=== PATIENT | female | born 1935 | race Caucasian/White ===

== ENCOUNTER → 2020-06-21 15:21 | Outpatient (BNVA) | payer MEDICARE, SELFPAY | PROVIDERS: PCP Internal Medicine; Referring Provider Internal Medicine; Visit Provider Internal Medicine | DX: Z86.73 Personal history of transient ischemic attack (TIA), and cerebral infarction without residual deficits (principal); Z51.81 Encounter for therapeutic drug level monitoring; Z79.01 Long term (current) use of anticoagulants | CPT/HCPCS: 85610; 99211 ==

== ENCOUNTER 2020-06-21 15:26 | Outpatient (REF) | payer MEDICARE, SELFPAY | END 2020-06-21 15:27 | disposition home or self-care (01) | LOC: HO.LNP 15:26 | PROVIDERS: Visit Provider Internal Medicine | DX: Z79.01 Long term (current) use of anticoagulants (principal); Z79.899 Other long term (current) drug therapy ==

== ENCOUNTER → 2020-06-29 10:02 | Outpatient (BNVA) | payer MEDICARE, SELFPAY | PROVIDERS: PCP Internal Medicine; Visit Provider Internal Medicine | DX: I63.9 Cerebral infarction, unspecified (principal); Z51.81 Encounter for therapeutic drug level monitoring; Z79.01 Long term (current) use of anticoagulants | CPT/HCPCS: 85610 ==

== ENCOUNTER → 2020-07-20 08:30 | Outpatient (BNVA) | payer MEDICARE, SELFPAY | PROVIDERS: PCP Internal Medicine; Referring Provider Internal Medicine; Visit Provider Internal Medicine | DX: I63.9 Cerebral infarction, unspecified (principal); Z51.81 Encounter for therapeutic drug level monitoring; Z79.01 Long term (current) use of anticoagulants | CPT/HCPCS: 85610; 99211 ==

== ENCOUNTER → 2020-08-20 08:48 | Outpatient (BNVA) | payer MEDICARE, SELFPAY | PROVIDERS: PCP Internal Medicine; Visit Provider Internal Medicine | DX: Z86.73 Personal history of transient ischemic attack (TIA), and cerebral infarction without residual deficits (principal); Z51.81 Encounter for therapeutic drug level monitoring; Z79.01 Long term (current) use of anticoagulants | CPT/HCPCS: 85610; 99211 ==

== ENCOUNTER 2020-09-03 09:36 | Outpatient (REF) | payer MEDICARE, SELFPAY ==
--- NOTE | 2020-09-03 | US_ITS ---
EXAMINATION: US EXTRACRANIAL CAROTID DUPLEX, BILATERAL CLINICAL INFORMATION: Carotid stenosis. Follow-up stroke. COMPARISON: None. TECHNIQUE: Real-time ultrasound and Doppler techniques (integrating B-mode 2-D vascular images, Doppler spectral analysis and color-flow Doppler imaging) were utilized to interrogate the extracranial carotid arteries, the vertebral arteries and proximal subclavian arteries bilaterally. The degree of stenosis is determined by criteria similar to NASCET. FINDINGS: Right Side: 1. There is soft atherosclerotic plaque seen in the bifurcation/proximal ICA region. 2. The common carotid artery PSV proximally is 92.6 cm/s and distally 71.1 cm/s. 3. The proximal internal carotid artery velocities are 68.0 cm/s systolic and 18.8 cm/s diastolic. 4. The proximal external carotid artery PSV is 99.7 cm/s. 5. The vertebral artery shows antegrade flow. 6. The subclavian artery waveforms are normal. Left Side: 1. There is hard shadowing atherosclerotic plaque seen in the bifurcation/proximal ICA region. 2. The common carotid artery PSV proximally is 76.2 cm/s and distally 59.3 cm/s. 3. The proximal internal carotid artery velocities are 284 cm/s systolic and 77.0 cm/s diastolic. 4. The proximal external carotid artery PSV is 85.0 cm/s. 5. The vertebral artery shows antegrade flow. 6. The subclavian artery waveforms are normal. US/US carotid duplex BI IMPRESSION: 1. RIGHT: No hemodynamically significant stenosis. There is minimal soft plaque seen in the right carotid bulb. 2. LEFT: 50-79% range stenosis left internal carotid artery. Hard atherosclerotic plaque seen in the left common carotid bulb and proximal ICA. 3. Normal antegrade flow seen in both vertebral arteries.
== END 2020-09-03 09:37 | disposition home or self-care (01) ==
LOC: HO.US 09:36
PROVIDERS: PCP Internal Medicine; Visit Provider Internal Medicine
DX: I65.22 Occlusion and stenosis of left carotid artery (principal); I65.29 Occlusion and stenosis of unspecified carotid artery; I63.9 Cerebral infarction, unspecified
CPT/HCPCS: 85610; 93880; 99211

== ENCOUNTER → 2020-10-01 08:18 | Outpatient (BNVA) | payer MEDICARE, SELFPAY | PROVIDERS: PCP Internal Medicine; Visit Provider Internal Medicine | DX: Z86.73 Personal history of transient ischemic attack (TIA), and cerebral infarction without residual deficits (principal); Z79.01 Long term (current) use of anticoagulants; Z51.81 Encounter for therapeutic drug level monitoring | CPT/HCPCS: 85610; 99211 ==

== ENCOUNTER → 2020-10-29 08:22 | Outpatient (BNVA) | payer MEDICARE, SELFPAY | PROVIDERS: PCP Internal Medicine; Visit Provider Internal Medicine | DX: I63.9 Cerebral infarction, unspecified (principal); Z51.81 Encounter for therapeutic drug level monitoring; Z79.01 Long term (current) use of anticoagulants | CPT/HCPCS: 85610; 99211 ==

== ENCOUNTER 2020-11-05 18:58 | Emergency (ER) | payer MEDICARE, SELFPAY ==
--- NOTE | ~2020-11-05 | XR_ITS ---
EXAMINATION: XR SHOULDER, RIGHT CLINICAL INFORMATION: Shoulder pain with impaired movement. COMPARISON: Left shoulder 10/18/2018, right shoulder 10/30/2006. TECHNIQUE: Three views of the right shoulder. FINDINGS: Again seen are degenerative changes present in the glenohumeral joint along with the AC joint. Changes have progressed slightly since the prior study in 2006. New calcifications seen in the region of the rotator cuff (most likely supraspinatus tendon) which could represent tendinosis/tendinitis which was not present previously. XR/XR shoulder RT min 2V IMPRESSION: Degenerative changes, glenohumeral and AC joint, with new calcifications in the rotator cuff as described above.
[2020-11-05 19:07] VITALS: BP 165/87; PULSE 87; RESP 18; TEMP 36.8; O2SAT 96; BMI 35.2
--- NOTE | 2020-11-05 20:30 | ED_ITS ---
HPI - Extremity Problem General Chief complaint: Extremity Problem Stated complaint: Right arm pain Source: patient Mode of arrival: ambulatory Limitations: no limitations History of Present Illness HPI Narrative: 85-year-old female with past medical history of hypertension, hyperlipidemia, history of CVA on Coumadin, sleep apnea, and ambulates with a cane presents with right shoulder pain. States that she has been doing a lot of work moving various objects in her basement over the past week. Is having a difficult time raising her arm above 45 degree angle. She does not describe any pain when her arm is at rest. She does not report any loss of strength in her hand, does not report any traumatic injury or falls. She denies dizziness, lightheadedness, changes in vision, chest pain or pressure, palpitations, shortness of breath, abdominal pain, abdominal distention, dysuria, hematuria, fevers and chills. MD Complaint: extremity pain Onset (ago): day(s) (3) Pain Consistency: constant Location: right and upper extremity Severity scale (1-10): 8 Quality: aching Radiation: none Relieving factors: immobilization Exacerbating factors: range of motion and palpation Associated symptoms: denies other symptoms Related Data Home Medications Medication Instructions Recorded Confirmed atenolol 25 mg tablet 25 mg PO DAILY 10/29/20 10/29/20 atorvastatin 10 mg tablet 10 mg PO DAILY 10/29/20 10/29/20 lisinopril 5 mg tablet 5 mg PO DAILY 10/29/20 10/29/20 Previous Rx's Medication Instructions Recorded warfarin 2.5 mg tablet 2.5 mg PO DAILY #90 tab 06/22/20 diclofenac sodium [Voltaren] 2 g TOPICAL QID #100 g 11/05/20 Allergies Allergy/AdvReac Type Severity Reaction Status Date / Time No Known Allergies Allergy Verified 09/03/20 09:18 [No Known Allergies*] Review of Systems Review of Systems: Constitutional: No Fever, No Chills ENT/Mouth: No Ear Pain, No Hoarseness, No sore throat Eyes: No Eye Pain, No Swelling, No Redness, No Foreign Body Cardiovascular: No Chest Pain, No SOB Respiratory: No Cough, No Dyspnea Gastrointestinal: No Nausea, No Vomiting, No Diarrhea, No abdominal Pain Genitourinary: No Dysuria, No Hematuria Musculoskeletal: positive right shoulder pain, No Myalgias, No Joint Swelling Skin: No Skin lacerations, No rash Neuro: No Weakness, No Numbness, No Paresthesias, No Loss of Consciousness, No Dizziness, No Headache Psych: No Anxiety/Panic, No Depression Heme/Lymph: no easy bruising, no Lymphadenopathy Endocrine: No Polyuria, No Polydipsia Yes all other systems are reviewed and are negative [facility] Past Medical History Attestation statement: The following information was validated with the patient. Source: old records reviewed Medical History Cataract HLD (hyperlipidemia) HTN (hypertension) Sleep apnea TIA (transient ischemic attack) Surgical History Hx of appendectomy Social History Social History Smoking Status: Never smoker Use of substances other than those prescribed or required for medical reasons: No Advance Directives: No Advance Directives Information Provided: Yes Physical Exam Vital Signs: Vital Signs: Last Vital Signs Temp 98.3 F 11/05/20 19:07 Pulse 72 11/05/20 20:52 Resp 16 11/05/20 20:52 BP 147/74 H 11/05/20 20:52 Pulse Ox 96 11/05/20 20:52 Body Mass Index 35.2 Appearance: Alert. Oriented X3. No acute distress. Eyes: Pupils equal, round and reactive to light. ENT: Pharynx normal. Neck: Normal inspection. Neck supple. CVS: Normal heart rate and rhythm. Pulses normal. Respiratory: No respiratory distress. Breath sounds normal. Abdomen: Soft and nontender. Skin: Skin warm and dry. Normal skin color. Normal skin turgor. Extremities: Decreased range of motion to the right upper extremity, strength 5/5 to all extremities. Brisk capillary refill, equal pulses. Neuro: No motor deficit. No sensory deficit. Gait well balanced well coordinated with cane use. Cranial nerves 2-12 intact. Course Course Course Narrative: 85-year-old female with past medical history of CVA on Coumad in, hypertension, hyperlipidemia, sleep apnea, ambulates with a cane presents with right shoulder pain for 3 days. X-ray shows Degenerative changes, glenohumeral and AC joint, with new calcifications in the rotator cuff. [place] text discussion with Dr. Alcocer, plan of care is for patient to follow-up with PA as an outpatient in the office. Will give Lidoderm patches and Voltaren gel for pain management. Patient verbalized understanding of and agrees to plan of care to discharge home. Consultations Consultation #1: Carlyn Time: 21:13 MDM - Extremity (Nontraumatic) MDM Narrative Medical decision making narrative: Arthritis, rotator cuff injury, labrum tear, muscular strain Medical Records Attestation: I reviewed the patient's medical records. Imaging Data Shoulder x-ray: Attestation: I personally reviewed and interpreted this imaging study as follows: Radiologist's impression: EXAMINATION: XR SHOULDER, RIGHT CLINICAL INFORMATION: Shoulder pain with impaired movement. COMPARISON: Left shoulder 10/18/2018, right shoulder 10/30/2006. TECHNIQUE: Three views of the right shoulder. FINDINGS: Again seen are degenerative changes present in the glenohumeral joint along with the AC joint. Changes have progressed slightly since the prior study in 2006. New calcifications seen in the region of the rotator cuff (most likely supraspinatus tendon) which could represent tendinosis/tendinitis which was not present previously. XR/XR shoulder RT min 2V IMPRESSION: Degenerative changes, glenohumeral and AC joint, with new calcifications in the rotator cuff as described above. Discharge Plan Discharge Clinical Impression: Arthritis of shoulder region, right, degenerative Patient Disposition: Home, Self-Care Instructions: Shoulder Pain (ED), Arthritis (ED) Additional Instructions: You were evaluated for right shoulder pain. Please use Voltaren topical ointment as needed. Follow-up with orthopedics, please call and request an appointment. Use sling as needed for comfort. Thank you for choosing this emergency department for evaluation. Please follow-up with primary care physician as needed. Return to the emergency department for any new, concerning, or worsening symptoms. Prescriptions: New diclofenac sodium [Voltaren] 1 % gel 2 g topical QID Qty: 100 RF: 0 No Action warfarin 2.5 mg tablet 2.5 mg PO DAILY Qty: 90 RF: 0 atorvastatin 10 mg tablet 10 mg PO DAILY RF: 0 lisinopril 5 mg tablet 5 mg PO DAILY RF: 0 atenolol 25 mg tablet 25 mg PO DAILY RF: 0 Referrals: Rubia Interiano PA-C [Physician [facility]] - 2 days (right shoulder degeneration ) Gregory Villasenor PA-C [Physician [facility]] - 2 days (Right shoulder degeneration) Interventions: ED Discharge Assessment Last Done: 11/05/20 21:55 Discharge Date/Time: 11/05/20 21:56
[2020-11-05 20:52] VITALS: BP 147/74; PULSE 72; RESP 16; O2SAT 96
[2020-11-05] MEDS: Lidocaine 4 % Patch ADH..PATCH 2 PATCH TRANSDERMA (21:44)
== END 2020-11-05 21:56 | disposition home or self-care (01) ==
PROVIDERS: Emergency Provider Internal Medicine; PCP Internal Medicine
DX: M19.011 Primary osteoarthritis, right shoulder (principal); I10 Essential (primary) hypertension; Z86.73 Personal history of transient ischemic attack (TIA), and cerebral infarction without residual deficits
CPT/HCPCS: 73030; 99283; 99284

== ENCOUNTER → 2020-11-07 08:51 | Outpatient (BNVA) | payer MEDICARE, SELFPAY | PROVIDERS: PCP Internal Medicine; Visit Provider Orthopaedic Surgery | DX: M75.41 Impingement syndrome of right shoulder (principal) | CPT/HCPCS: 99202 ==

== ENCOUNTER → 2020-11-26 08:31 | Outpatient (BNVA) | payer MEDICARE, SELFPAY | PROVIDERS: PCP Internal Medicine; Visit Provider Internal Medicine | DX: I63.9 Cerebral infarction, unspecified (principal); Z51.81 Encounter for therapeutic drug level monitoring; Z79.01 Long term (current) use of anticoagulants | CPT/HCPCS: 85610; 99211 ==

== ENCOUNTER → 2020-12-24 08:33 | Outpatient (BNVA) | payer MEDICARE, SELFPAY | PROVIDERS: PCP Internal Medicine; Visit Provider Internal Medicine | DX: I63.9 Cerebral infarction, unspecified (principal); Z79.01 Long term (current) use of anticoagulants; Z51.81 Encounter for therapeutic drug level monitoring | CPT/HCPCS: 85610; 99211 ==

== ENCOUNTER → 2021-01-21 08:33 | Outpatient (BNVA) | payer MEDICARE, SELFPAY | PROVIDERS: PCP Internal Medicine; Visit Provider Internal Medicine | DX: Z86.73 Personal history of transient ischemic attack (TIA), and cerebral infarction without residual deficits (principal); Z51.81 Encounter for therapeutic drug level monitoring; Z79.01 Long term (current) use of anticoagulants | CPT/HCPCS: 85610; 99211 ==

== ENCOUNTER → 2021-02-25 08:28 | Outpatient (BNVA) | payer MEDICARE, SELFPAY | PROVIDERS: PCP Internal Medicine; Visit Provider Internal Medicine | DX: Z86.73 Personal history of transient ischemic attack (TIA), and cerebral infarction without residual deficits (principal); Z51.81 Encounter for therapeutic drug level monitoring; Z79.01 Long term (current) use of anticoagulants | CPT/HCPCS: 85610; 99211 ==

== ENCOUNTER → 2021-03-08 08:28 | Outpatient (BNVA) | payer MEDICARE, SELFPAY | PROVIDERS: PCP Internal Medicine; Visit Provider Internal Medicine | DX: Z86.73 Personal history of transient ischemic attack (TIA), and cerebral infarction without residual deficits (principal); Z51.81 Encounter for therapeutic drug level monitoring; Z79.01 Long term (current) use of anticoagulants | CPT/HCPCS: 85610; 99211 ==

== ENCOUNTER → 2021-03-27 08:23 | Outpatient (BNVA) | payer MEDICARE, SELFPAY | PROVIDERS: PCP Internal Medicine; Visit Provider Internal Medicine | DX: Z86.73 Personal history of transient ischemic attack (TIA), and cerebral infarction without residual deficits (principal); Z51.81 Encounter for therapeutic drug level monitoring; Z79.01 Long term (current) use of anticoagulants | CPT/HCPCS: 85610; 99211 ==

== ENCOUNTER → 2021-04-24 08:30 | Outpatient (BNVA) | payer MEDICARE, SELFPAY | PROVIDERS: PCP Internal Medicine; Visit Provider Internal Medicine | DX: Z86.73 Personal history of transient ischemic attack (TIA), and cerebral infarction without residual deficits (principal); Z51.81 Encounter for therapeutic drug level monitoring; Z79.01 Long term (current) use of anticoagulants | CPT/HCPCS: 85610; 99211 ==

== ENCOUNTER → 2021-05-22 08:11 | Outpatient (BNVA) | payer MEDICARE, SELFPAY | PROVIDERS: PCP Internal Medicine; Visit Provider Internal Medicine | DX: Z86.73 Personal history of transient ischemic attack (TIA), and cerebral infarction without residual deficits (principal); Z51.81 Encounter for therapeutic drug level monitoring; Z79.01 Long term (current) use of anticoagulants | CPT/HCPCS: 85610; 99211 ==

== ENCOUNTER → 2021-06-12 08:19 | Outpatient (BNVA) | payer MEDICARE, SELFPAY | PROVIDERS: PCP Internal Medicine; Visit Provider Internal Medicine | DX: Z86.73 Personal history of transient ischemic attack (TIA), and cerebral infarction without residual deficits (principal); Z51.81 Encounter for therapeutic drug level monitoring; Z79.01 Long term (current) use of anticoagulants | CPT/HCPCS: 85610; 99211 ==

== ENCOUNTER 2021-07-17 07:26 | Outpatient (REF) | payer MEDICARE, SELFPAY ==
--- NOTE | ~2021-07-17 | MR_ITS ---
EXAMINATION: MR BRAIN WITHOUT CONTRAST CLINICAL INFORMATION: Cerebral vascular accident. Follow-up stroke. COMPARISON: Head CT October 27, 2018. Head MRA May 26, 2017. TECHNIQUE: Multiplanar, multisequence imaging of the brain was performed without intravenous contrast. FINDINGS: There is no acute infarction, hemorrhage, mass, or extra-axial fluid collection. Mild to moderate patchy foci of T2/FLAIR hyperintensity are seen within the cerebral white matter, typical of chronic microangiopathy. The ventricles and sulci are commensurate. No hydrocephalus is seen. Chronic lacunar infarcts are seen within the bilateral cerebellar hemispheres and in the left thalamus. The major arterial flow voids are preserved at the skull base. A calcified aneurysm projecting superiorly from the distal right M1 MCA segment is again seen. There are bilateral lens replacements. Mild scattered paranasal sinus mucosal thickening is noted in addition to bilateral mastoid effusions. MR/MR head/brain wo con IMPRESSION: No acute infarct, mass lesion, intracranial hemorrhage, or evidence of hydrocephalus. Chronic lacunar infarcts in the bilateral cerebellar hemispheres and left thalamus in a background of chronic microangiopathy. 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 Neuro interventional consultation is recommended if not already performed.
== END 2021-07-17 07:27 | disposition home or self-care (01) ==
LOC: HO.MRI 07:26
PROVIDERS: PCP Internal Medicine; Visit Provider Internal Medicine
DX: Z86.73 Personal history of transient ischemic attack (TIA), and cerebral infarction without residual deficits (principal); Z51.81 Encounter for therapeutic drug level monitoring; Z79.01 Long term (current) use of anticoagulants
CPT/HCPCS: 70551; 85610; 99211

== ENCOUNTER → 2021-08-01 07:36 | Outpatient (REF) | payer MEDICARE, SELFPAY ==
--- NOTE | ~2021-08-01 | US_ITS ---
EXAMINATION: US EXTRACRANIAL CAROTID DUPLEX, BILATERAL CLINICAL INFORMATION: History of stroke. COMPARISON: 09/03/2020 and 08/31/2019. TECHNIQUE: Real-time ultrasound and Doppler techniques (integrating B-mode 2-D vascular images, Doppler spectral analysis and color-flow Doppler imaging) were utilized to interrogate the extracranial carotid arteries, the vertebral arteries and proximal subclavian arteries bilaterally. The degree of stenosis is determined by criteria similar to NASCET. FINDINGS: Right Side: 1. There is mild atherosclerotic plaque seen in the bifurcation/proximal ICA region. 2. The common carotid artery PSV proximally is 63.3 cm/s and distally 51.9 cm/s. 3. The proximal internal carotid artery velocities are 67.6 cm/s systolic and 16.5 cm/s diastolic. 4. The proximal external carotid artery PSV is 76.8 cm/s. 5. The vertebral artery shows antegrade flow. 6. The subclavian artery waveforms are normal. Left Side: 1. There is mild to moderate atherosclerotic plaque seen in the bifurcation/proximal ICA region. 2. The common carotid artery PSV proximally is 70.3 cm/s and distally 62.9 cm/s. 3. The proximal internal carotid artery velocities are 233 cm/s systolic and 48.5 cm/s diastolic. 4. The proximal external carotid artery PSV is 69.1 cm/s. 5. The vertebral artery shows antegrade flow. 6. The subclavian artery waveforms are normal. US/US carotid duplex BI IMPRESSION: 1. RIGHT: Minimal, non-hemodynamically significant stenosis of the proximal right internal carotid artery corresponding to a 0-49% stenosis by velocity criteria. 2. LEFT: Moderate, hemodynamically significant stenosis of the proximal left internal carotid artery corresponding to a 50-79% stenosis by velocity criteria. 3. There is no change in the category severity of disease when compared to the previous study dated 09/03/2020.
--- NOTE | 2021-08-01 07:39 | CA_ITS ---
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 The visually estimated ejection fraction is >70%. - There is mild aortic valve stenosis. - There is moderate mitral annular calcification. Findings Left Ventricle Normal left ventricular cavity size. There is mildly increased left ventricular wall thickness. The left ventricular systolic function is hyperdynamic. The visually estimated ejection fraction is >70%. E/E prime ratio is >15, consistent with elevated filling pressures. Evidence suggests grade I (mild) diastolic dysfunction. Right Ventricle Normal right ventricular cavity size and systolic function. Atria The left atrium is moderately dilated. The right atrium is mildly dilated. Aortic Valve There is moderate calcification of the aortic valve. There is mild aortic valve stenosis. The peak aortic velocity is 1.77 m/s with a calculated peak gradient of 13 mmHg. The mean gradient is 11 mmHg. The aortic valve area is 1.60 cm2. There is mild aortic valve regurgitation. Mitral Valve There is moderate mitral annular calcification. There is trace mitral valve regurgitation. There is no mitral valve stenosis. Pulmonic Valve The pulmonic valve was not well visualized. Tricuspid Valve There is mild tricuspid valve regurgitation. The pulmonary artery systolic pressure is normal. Great Vessels The aortic annulus and asc aorta are normal in size. Venous The inferior vena cava is normal in size and collapses greater than 50% with inspiration. Pericardium/Pleural There is no evidence of pericardial effusion. Prior Study Comparison No significant change compared to prior study dated: 10/07/2019. Measurements 2D Linear Measurements IVSd: 1.20 0.6-0.9/0.6-1.0 cm LVIDd: 4.67 3.9-5.3/4.2-5.9 cm LVIDd Index: 2.51 2.4-3.2/2.2-3.1 cm/m2 LVIDs: 2.28 2.0-3.6 cm LVPWd: 1.10 0.7-1.1 cm Ao Root: 3.00 2.1-3.5 cm LA Diam: 3.90 2.7-3.8/3.0-4.0 cm LAIDs Index: 2.10 1.5-2.3 cm/m2 LV Mass: 246.23 67-162/88-224 g LV Mass Index: 132.38 43-95/49-115 g/m2 LVOT Diam: 2.10 3.0+(-)1.3 cm 2D Systolic Function EF 4C: 76.50 >55% EF 2C: 83.50 >55% EF BiP: 80.00 >55% Mitral Valve MV Pk E: 1.11 MV PK A: 1.63 MV Decel Time: 180.00 E/A: 0.70 E'Lateral: 6.53 E'Medial: 5.22 E/E' Med: 21.30 E/E' Lat: 17.00 PHT: 53.00 MVA PHT: 4.15 Decel Overton: 6.17 Aortic Valve AoV Pk Yaron: 1.77 AoV Mn Yaron: 1.57 AoV VTI: 0.62 AoV Pk Grad: 13.00 Aov Mn Grad: 11.00 KATIE Cont.VTI: 1.60 LVOT LVOT Pk Yaron: 1.06 LVOT Mn Yaron: 0.77 LVOT VTI: 0.29 LVOT Pk Grad: 4.00 LVOT Mn Grad: 3.00 LVOT Diam: 2.10 LVOT Area: 3.46 Diastolic Function MV Pk E: 1.11 MV Pk A: 1.63 E/A: 0.70 E'Medial: 5.22 E/E' Med: 21.30 E' Laterial: 6.53 E/E' Lat: 17.00 Right Ventricle TAPSE (mm): 2.09 Tricuspid Valve TR Pk Yaron: 2.55 TR Pk Grad: 26.00 RA Press: 3.00 RVSP: 29.00 Great Vessels Aorta Ao Root-2D: 3.00 2.0-3.7 cm Ao Asc: 3.80 2.1-3.4 cm Updated in Other Vendor System with Status of Final Geoffrey Rene MD electronically signed on 08/03/2021 12:42:03 PM with status of Final
== END ==
LOC: HO.CARD 07:36
PROVIDERS: Visit Provider Internal Medicine
DX: I63.9 Cerebral infarction, unspecified (principal); I65.22 Occlusion and stenosis of left carotid artery; R01.1 Cardiac murmur, unspecified; I10 Essential (primary) hypertension
CPT/HCPCS: 93306; 93880

== ENCOUNTER → 2021-08-14 09:09 | Outpatient (BNVA) | payer MEDICARE, SELFPAY | PROVIDERS: PCP Internal Medicine; Visit Provider Internal Medicine | DX: Z86.73 Personal history of transient ischemic attack (TIA), and cerebral infarction without residual deficits (principal); Z51.81 Encounter for therapeutic drug level monitoring; Z79.01 Long term (current) use of anticoagulants | CPT/HCPCS: 85610; 99211 ==

== ENCOUNTER → 2021-09-11 08:12 | Outpatient (BNVA) | payer MEDICARE, SELFPAY | PROVIDERS: PCP Internal Medicine; Visit Provider Internal Medicine | DX: Z86.73 Personal history of transient ischemic attack (TIA), and cerebral infarction without residual deficits (principal); Z51.81 Encounter for therapeutic drug level monitoring; Z79.01 Long term (current) use of anticoagulants | CPT/HCPCS: 85610; 99211 ==

== ENCOUNTER → 2021-09-18 08:06 | Outpatient (BNVA) | payer MEDICARE, SELFPAY | PROVIDERS: PCP Internal Medicine; Visit Provider Internal Medicine | DX: Z86.73 Personal history of transient ischemic attack (TIA), and cerebral infarction without residual deficits (principal); Z51.81 Encounter for therapeutic drug level monitoring; Z79.01 Long term (current) use of anticoagulants | CPT/HCPCS: 85610; 99211 ==

== ENCOUNTER → 2021-10-23 08:09 | Outpatient (BNVA) | payer MEDICARE, SELFPAY | PROVIDERS: PCP Internal Medicine; Visit Provider Internal Medicine | DX: Z86.73 Personal history of transient ischemic attack (TIA), and cerebral infarction without residual deficits (principal); Z51.81 Encounter for therapeutic drug level monitoring; Z79.01 Long term (current) use of anticoagulants | CPT/HCPCS: 85610; 99211 ==

== ENCOUNTER → 2021-11-06 08:09 | Outpatient (BNVA) | payer MEDICARE, SELFPAY | PROVIDERS: PCP Internal Medicine; Visit Provider Internal Medicine | DX: Z86.73 Personal history of transient ischemic attack (TIA), and cerebral infarction without residual deficits (principal); Z51.81 Encounter for therapeutic drug level monitoring; Z79.01 Long term (current) use of anticoagulants | CPT/HCPCS: 85610; 99211 ==

== ENCOUNTER → 2021-12-11 08:01 | Outpatient (BNVA) | payer MEDICARE, SELFPAY | PROVIDERS: PCP Internal Medicine; Visit Provider Internal Medicine | DX: Z86.73 Personal history of transient ischemic attack (TIA), and cerebral infarction without residual deficits (principal); Z51.81 Encounter for therapeutic drug level monitoring; Z79.01 Long term (current) use of anticoagulants | CPT/HCPCS: 85610; 99211 ==

== ENCOUNTER → 2022-01-01 08:12 | Outpatient (BNVA) | payer MEDICARE, SELFPAY | PROVIDERS: PCP Internal Medicine; Visit Provider Internal Medicine | DX: Z86.73 Personal history of transient ischemic attack (TIA), and cerebral infarction without residual deficits (principal); Z79.01 Long term (current) use of anticoagulants; Z51.81 Encounter for therapeutic drug level monitoring | CPT/HCPCS: 85610; 99211 ==

== ENCOUNTER → 2022-01-29 08:33 | Outpatient (BNVA) | payer MEDICARE, SELFPAY | PROVIDERS: PCP Internal Medicine; Visit Provider Internal Medicine | DX: Z86.73 Personal history of transient ischemic attack (TIA), and cerebral infarction without residual deficits (principal); Z79.01 Long term (current) use of anticoagulants; Z51.81 Encounter for therapeutic drug level monitoring | CPT/HCPCS: 85610; 99211 ==

== ENCOUNTER → 2022-02-28 08:24 | Outpatient (BNVA) | payer MEDICARE, SELFPAY | PROVIDERS: PCP Internal Medicine; Visit Provider Internal Medicine | DX: Z86.73 Personal history of transient ischemic attack (TIA), and cerebral infarction without residual deficits (principal); Z51.81 Encounter for therapeutic drug level monitoring; Z79.01 Long term (current) use of anticoagulants | CPT/HCPCS: 85610; 99211 ==

== ENCOUNTER → 2022-03-28 08:03 | Outpatient (BNVA) | payer MEDICARE, SELFPAY | PROVIDERS: PCP Internal Medicine; Visit Provider Internal Medicine | DX: Z86.73 Personal history of transient ischemic attack (TIA), and cerebral infarction without residual deficits (principal); Z51.81 Encounter for therapeutic drug level monitoring; Z79.01 Long term (current) use of anticoagulants | CPT/HCPCS: 85610; 99211 ==

== ENCOUNTER → 2022-04-25 08:13 | Outpatient (BNVA) | payer MEDICARE, SELFPAY | PROVIDERS: PCP Internal Medicine; Visit Provider Internal Medicine | DX: Z86.73 Personal history of transient ischemic attack (TIA), and cerebral infarction without residual deficits (principal); Z79.01 Long term (current) use of anticoagulants; Z51.81 Encounter for therapeutic drug level monitoring | CPT/HCPCS: 85610; 99211 ==

== ENCOUNTER → 2022-05-23 08:20 | Outpatient (BNVA) | payer MEDICARE, SELFPAY | PROVIDERS: PCP Internal Medicine; Visit Provider Internal Medicine | DX: Z86.73 Personal history of transient ischemic attack (TIA), and cerebral infarction without residual deficits (principal); Z79.01 Long term (current) use of anticoagulants; Z51.81 Encounter for therapeutic drug level monitoring | CPT/HCPCS: 85610; 99211 ==

== ENCOUNTER → 2022-06-20 08:02 | Outpatient (BNVA) | payer MEDICARE, SELFPAY | PROVIDERS: PCP Internal Medicine; Visit Provider Internal Medicine | DX: Z86.73 Personal history of transient ischemic attack (TIA), and cerebral infarction without residual deficits (principal); Z79.01 Long term (current) use of anticoagulants; Z51.81 Encounter for therapeutic drug level monitoring | CPT/HCPCS: 85610; 99211 ==

== ENCOUNTER 2022-07-11 08:43 | Outpatient (REF) | payer MEDICARE, SELFPAY ==
--- NOTE | ~2022-07-11 | MM_ITS ---
EXAMINATION: BONE DENSITOMETRY CLINICAL INDICATION: Postmenopausal. Estrogen deficiency. COMPARISON: Baseline BD dated 10/22/2007. TECHNIQUE: Using a [employer] DXA System (software version: 13.1) manufactured by [employer], dual-energy x-ray absorptiometry was performed of the lumbar spine and left hip. The images are of good technical quality. Summary results are attached. FINDINGS: AP SPINE L1-L2 (excluding L3 and L4): The data of L1-L4 has been changed to exclude the L3 and L4 vertebral bodies, because degenerative changes at these levels may cause overestimation of lumbar spine density. Current: BMD 1.729 g/cm2, Z-score 6.0, T-score 4.7, normal, 0.1% decrease from baseline (<5% change is not significant). Baseline: BMD 1.730 g/cm2. LEFT FEMUR, NECK: Current: BMD 0.880 g/cm2, Z-score 0.8, T-score -1.1, osteopenia. Baseline: BMD 0.933 g/cm2. LEFT FEMUR, TOTAL: Current: BMD 0.983 g/cm2, Z-score 1.6, T-score -0.2, normal, 8.4% decrease from baseline (<5% change is not significant). Baseline: BMD 1.073 g/cm2. IDENTIFIED RISK FACTORS: Menopause. HISTORY OF FRACTURE: None listed. MEDICATIONS: Vitamin D. MM/XR DEXA axial skeleton IMPRESSION: 1. DIAGNOSIS: Osteopenia based on the lowest T-score value of -1.1 in the femoral neck applying World Health Organization criteria. 2. 10-YEAR FRACTURE RISK PREDICTION, FRAX: Major osteoporotic fracture (clinical spine, forearm, hip or shoulder) 11.5%. Hip fracture 2.6%. 3. Treatment Recommendations: NOF guidelines recommend consideration for treatment in postmenopausal women and men age 50 and older presenting with the following: -A hip or vertebral (clinical or morphometric) fracture. -T-score less than or equal to -2.5 at the femoral neck or spine after appropriate evaluation to exclude secondary causes. -Low bone mass at the hip or spine and a 10-year fracture probability by FRAX of greater than or equal to 3% for hip fracture or greater than or equal to 20% for major osteoporotic fracture based on the [place] adapted WHO algorithm. 4. Other Recommendations: All treatment decisions require clinical judgment and consideration of individual patient factors, including patient preferences, comorbidities, previous drug use, risk factors not captured in the FRAX model (e.g. frailty, falls, vitamin D deficiency, increased bone turnover, interval significant decline in bone density) and possible under or overestimation of fracture risk by FRAX. Additional medical evaluation for secondary cause of low bone mineral density may be appropriate. FUTURE SCAN RECOMMENDATION: People with diagnosed cases of osteoporosis or at high risk for fracture should have regular bone mineral density tests. For patients eligible for Medicare, routine testing is allowed once every 2 years. The testing frequency can be increased to one year for patients who have rapidly progressing disease, those who are receiving or discontinuing medical therapy to restore bone mass, or have additional risk factors.
== END 2022-07-11 08:44 | disposition home or self-care (01) ==
LOC: HO.MAMMO 08:43
PROVIDERS: Visit Provider Internal Medicine
DX: Z13.820 Encounter for screening for osteoporosis (principal); Z78.0 Asymptomatic menopausal state
CPT/HCPCS: 77080

== ENCOUNTER → 2022-07-17 08:02 | Outpatient (BNVA) | payer MEDICARE, SELFPAY | PROVIDERS: PCP Internal Medicine; Visit Provider Internal Medicine | DX: Z86.73 Personal history of transient ischemic attack (TIA), and cerebral infarction without residual deficits (principal); Z79.01 Long term (current) use of anticoagulants; Z51.81 Encounter for therapeutic drug level monitoring | CPT/HCPCS: 85610; 99211 ==

== ENCOUNTER → 2022-08-13 08:06 | Outpatient (BNVA) | payer MEDICARE, SELFPAY | PROVIDERS: PCP Internal Medicine; Visit Provider Internal Medicine | DX: Z86.73 Personal history of transient ischemic attack (TIA), and cerebral infarction without residual deficits (principal); Z79.01 Long term (current) use of anticoagulants; Z51.81 Encounter for therapeutic drug level monitoring | CPT/HCPCS: 85610; 99211 ==

== ENCOUNTER 2022-08-18 09:52 | Outpatient (REF) | payer MEDICARE, SELFPAY ==
--- NOTE | ~2022-08-18 | US_ITS ---
EXAMINATION: US EXTRACRANIAL CAROTID DUPLEX, BILATERAL CLINICAL INFORMATION: Cerebral infarction COMPARISON: 08/01/2021 and 09/03/2020 TECHNIQUE: Real-time ultrasound and Doppler techniques (integrating B-mode 2-D vascular images, Doppler spectral analysis and color-flow Doppler imaging) were utilized to interrogate the extracranial carotid arteries, the vertebral arteries and proximal subclavian arteries bilaterally. The degree of stenosis is determined by criteria similar to NASCET. FINDINGS: Right Side: 1. There is mild atherosclerotic plaque seen in the bifurcation/proximal ICA region. 2. The common carotid artery PSV proximally is 69 cm/s and distally 57 cm/s. 3. The proximal internal carotid artery velocities are 59 cm/s systolic and 12 cm/s diastolic. 4. The proximal external carotid artery PSV is 100 cm/s. 5. The vertebral artery shows antegrade flow. 6. The subclavian artery waveforms are normal. Left Side: 1. There is moderate atherosclerotic plaque seen in the bifurcation/proximal ICA region. 2. The common carotid artery PSV proximally is 55 cm/s and distally 64 cm/s. 3. The proximal internal carotid artery velocities are 247 cm/s systolic and 36 cm/s diastolic. 4. The proximal external carotid artery PSV is 83 cm/s. 5. The vertebral artery shows antegrade flow. 6. The subclavian artery waveforms are normal. US/US carotid duplex BI IMPRESSION: 1. RIGHT: Minimal, non-hemodynamically significant stenosis of the proximal right internal carotid artery corresponding to a 0-49% stenosis by velocity criteria. 2. LEFT: Moderate, hemodynamically significant stenosis of the proximal left internal carotid artery corresponding to a 50-79% stenosis by velocity criteria. 3. There is no change in the category severity of disease when compared to the previous study dated 08/01/2021.
== END 2022-08-18 09:53 | disposition home or self-care (01) ==
LOC: HO.US 09:52
PROVIDERS: Visit Provider Psychiatry & Neurology Neurology
DX: Z86.73 Personal history of transient ischemic attack (TIA), and cerebral infarction without residual deficits (principal)
CPT/HCPCS: 93880

== ENCOUNTER → 2022-09-03 08:09 | Outpatient (BNVA) | payer MEDICARE, SELFPAY | PROVIDERS: PCP Internal Medicine; Visit Provider Internal Medicine | DX: Z86.73 Personal history of transient ischemic attack (TIA), and cerebral infarction without residual deficits (principal); Z51.81 Encounter for therapeutic drug level monitoring; Z79.01 Long term (current) use of anticoagulants | CPT/HCPCS: 85610; 99211 ==

== ENCOUNTER → 2022-09-17 08:17 | Outpatient (BNVA) | payer MEDICARE, SELFPAY | PROVIDERS: PCP Internal Medicine; Visit Provider Internal Medicine | DX: Z86.73 Personal history of transient ischemic attack (TIA), and cerebral infarction without residual deficits (principal); Z79.01 Long term (current) use of anticoagulants; Z51.81 Encounter for therapeutic drug level monitoring | CPT/HCPCS: 85610; 99211 ==

== ENCOUNTER → 2022-10-08 08:12 | Outpatient (BNVA) | payer MEDICARE, SELFPAY | PROVIDERS: PCP Internal Medicine; Visit Provider Internal Medicine | DX: Z86.73 Personal history of transient ischemic attack (TIA), and cerebral infarction without residual deficits (principal); Z79.01 Long term (current) use of anticoagulants; Z51.81 Encounter for therapeutic drug level monitoring | CPT/HCPCS: 85610; 99211 ==

== ENCOUNTER → 2022-10-29 08:18 | Outpatient (BNVA) | payer MEDICARE, SELFPAY | PROVIDERS: PCP Internal Medicine; Visit Provider Internal Medicine | DX: Z86.73 Personal history of transient ischemic attack (TIA), and cerebral infarction without residual deficits (principal); Z79.01 Long term (current) use of anticoagulants; Z51.81 Encounter for therapeutic drug level monitoring | CPT/HCPCS: 85610; 99211 ==

== ENCOUNTER → 2022-11-26 08:02 | Outpatient (BNVA) | payer MEDICARE, SELFPAY | PROVIDERS: PCP Internal Medicine; Visit Provider Internal Medicine | DX: Z86.73 Personal history of transient ischemic attack (TIA), and cerebral infarction without residual deficits (principal); Z79.01 Long term (current) use of anticoagulants; Z51.81 Encounter for therapeutic drug level monitoring | CPT/HCPCS: 85610; 99211 ==

== ENCOUNTER → 2022-12-24 08:10 | Outpatient (BNVA) | payer MEDICARE, SELFPAY | PROVIDERS: PCP Internal Medicine; Visit Provider Internal Medicine | DX: Z86.73 Personal history of transient ischemic attack (TIA), and cerebral infarction without residual deficits (principal); Z79.01 Long term (current) use of anticoagulants; Z51.81 Encounter for therapeutic drug level monitoring | CPT/HCPCS: 85610; 99211 ==

== ENCOUNTER → 2023-01-21 08:15 | Outpatient (BNVA) | payer MEDICARE, SELFPAY | PROVIDERS: PCP Internal Medicine; Visit Provider Internal Medicine | DX: Z86.73 Personal history of transient ischemic attack (TIA), and cerebral infarction without residual deficits (principal); Z79.01 Long term (current) use of anticoagulants; Z51.81 Encounter for therapeutic drug level monitoring | CPT/HCPCS: 85610; 99211 ==

== ENCOUNTER → 2023-02-18 08:09 | Outpatient (BNVA) | payer MEDICARE, SELFPAY | PROVIDERS: PCP Internal Medicine; Visit Provider Internal Medicine | DX: Z86.73 Personal history of transient ischemic attack (TIA), and cerebral infarction without residual deficits (principal); Z79.01 Long term (current) use of anticoagulants; Z51.81 Encounter for therapeutic drug level monitoring | CPT/HCPCS: 85610; 99211 ==

== ENCOUNTER → 2023-03-18 08:07 | Outpatient (BNVA) | payer MEDICARE, SELFPAY | PROVIDERS: PCP Internal Medicine; Visit Provider Internal Medicine | DX: Z86.73 Personal history of transient ischemic attack (TIA), and cerebral infarction without residual deficits (principal); Z79.01 Long term (current) use of anticoagulants; Z51.81 Encounter for therapeutic drug level monitoring | CPT/HCPCS: 85610; 99211 ==

== ENCOUNTER 2023-04-15 08:03 | Outpatient (AMB) | payer MEDICARE, SELFPAY ==
[2023-04-15 08:21] LABS: ~PT, ~INR - Anti Coag Clinic 2.3 (0.9-1.1)
--- NOTE | 2023-04-15 08:31 | MHC.OFFVISCO ---
Intake Intake Visit Reasons: Anticoagulation Allergies meloxicam Allergy (Intermediate, Uncoded 04/15/23 08:16) Nausea Medication List - Last Reconciled 04/15/23 by Macarena Faust, RN ascorbic acid (vitamin C) mg PO aspirin 81 mg PO DAILY atenolol 25 mg PO DAILY atorvastatin 10 mg PO DAILY cholecalciferol (vitamin D3) PO [FISH OIL /REVESTERTITOL PO] losartan 25 mg PO DAILY warfarin 2.5 mg See Protocol PO DAILY Nursing Note NO CP,SOB,DIET/MED CHANGES,FALLS OR SX OF BLEEDING. CONTINUE PRESENT DOSE AND FOLLOW-UP IN 4 WEEJKS. GOOD UNDERSTANDING OF DOSING INSTR. 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
== END 2023-04-15 08:32 | disposition home or self-care (01) ==
LOC: HO.ACS 08:03
PROVIDERS: PCP Internal Medicine; Visit Provider Internal Medicine
DX: Z79.01 Long term (current) use of anticoagulants (principal)

== ENCOUNTER → 2023-04-15 08:03 | Outpatient (BNVA) | payer MEDICARE, SELFPAY | PROVIDERS: PCP Internal Medicine; Visit Provider Internal Medicine | DX: Z86.73 Personal history of transient ischemic attack (TIA), and cerebral infarction without residual deficits (principal); Z79.01 Long term (current) use of anticoagulants; Z51.81 Encounter for therapeutic drug level monitoring | CPT/HCPCS: 85610; 99211 ==

== ENCOUNTER 2023-05-07 07:13 | Emergency (ER) | payer MEDICARE, SELFPAY ==
--- NOTE | ~2023-05-07 | CT_ITS ---
EXAMINATION: CT HEAD WITHOUT CONTRAST CLINICAL INFORMATION: Off balance. History of stroke. COMPARISON: Head MRA 05/26/2017. Brain MRI 07/17/2021. TECHNIQUE: Contiguous axial imaging was performed from the skull base to vertex without intravenous administration of contrast. This CT examination was performed using dose optimization techniques as appropriate, variously including the following: *Automated exposure control *Adjustment of mA and/or kV according to patient size (this includes techniques or standardized protocols for targeted exams where dose is matched to indication/reason for exam; i.e. extremities or head) *Use of iterative reconstruction technique DLP: 660 mGy-cm. FINDINGS: There is no intracranial hemorrhage, extra-axial collection, mass effect, or acute territorial infarction. Small chronic lacunar infarcts in the bilateral cerebellar hemispheres and in the bilateral basal ganglia. Mild chronic microangiopathic changes are seen within the white matter. There is a small chronic infarct within the left frontal lobe deep white matter. The ventricles are normal in size without hydrocephalus. A calcified right MCA aneurysm is again demonstrated. There is chronic inflammatory change within the left sphenoid sinus with polypoid opacification hyperostotic bone thickening again demonstrated. CT/CT head/brain wo IV con IMPRESSION: No acute intracranial abnormality. Redemonstration of calcified right MCA aneurysm. Chronic microangiopathic changes and chronic infarcts as above.
[2023-05-07 07:20] VITALS: BP 176/86; PULSE 66; RESP 17; TEMP 36.2; O2SAT 99; BMI 31.1
--- NOTE | 2023-05-07 07:33 | ECG_ITS ---
Test Reason : high bp Blood Pressure : / mmHG Vent. Rate : 059 BPM Atrial Rate : 059 BPM P-R Int : 208 ms QRS Dur : 102 ms QT Int : 442 ms P-R-T Axes : 047 -25 024 degrees QTc Int : 437 ms Sinus bradycardia Moderate voltage criteria for LVH, may be normal variant ( R in aVL , Gallo product ) Cannot rule out Anterior infarct , age undetermined Abnormal ECG When compared with ECG of 25-MAY-2017 14:44, No significant change was found Referred By: Generic ED Physician Electronically Signed By:KASSIE MOELLER
--- NOTE | 2023-05-07 07:41 | ED_ITS ---
HPI - General Adult General Chief complaint: Headache Stated complaint: headache HBP Time Seen by Provider: 05/07/23 07:40 Source: patient, family (patient's son) and old records reviewed Mode of arrival: ambulatory Limitations: no limitations History of Present Illness HPI narrative: Patient is an 87 year old assigned female at with a history of CVA currently on Warfarin and HTN presenting to the emergency department today with a headache and feeling more off balance. Patient states that 7 years ago she had an episode similar to this where she couldn't write correctly and was told it was a stroke. Patient states yesterday, she began to feel more off balance and is now having a frontal headache. Patient denies any dizziness, lightheadedness, abdominal pain, nausea, vomiting, fever, chills, blurry vision, double vision, loss of vision, chest pain, difficulty breathing, shortness of breath, back pain, night sweats, pain with urination, increased urinary frequency, increased urinary urgency, blood in her urine or stool, syncope or a near syncopal episode, recent trauma or falls, bowel incontinence, bladder incontinence, bowel retention, bladder retention, or any other complaints at this time. Onset (ago): day(s) (1) Severity: mild Severity scale (1-10): 3 Quality: aching and dull Pain Consistency: constant Relieving factors: none Exacerbating factors: none Associated symptoms: denies other symptoms Treatments prior to arrival: none Related Data Home Medications Medication Instructions Recorded Confirmed atenolol 25 mg tablet 25 mg PO DAILY 10/29/20 02/18/23 atorvastatin 10 mg tablet 10 mg PO DAILY 10/29/20 02/18/23 FISH OIL /REVESTERTITOL PO 07/17/21 02/18/23 losartan 25 mg tablet 25 mg PO DAILY 07/17/21 02/18/23 ascorbic acid (vitamin C) 500 mg mg PO 10/29/22 02/18/23 capsule aspirin 81 mg capsule 81 mg PO DAILY 10/29/22 02/18/23 cholecalciferol (vitamin D3) PO 10/29/22 02/18/23 Previous Rx's Medication Instructions Recorded warfarin 2.5 mg tablet 2.5 mg PO DAILY #90 tabs 06/22/20 Allergies Allergy/AdvReac Type Severity Reaction Status Date / Time meloxicam Allergy Intermediate Nausea Uncoded 04/15/23 08:16 Review of Systems Constitutional: Constitutional: Reports no additional constitutional complaints, Denies chills, Denies fever(s), Reports headache(s) and Denies night sweats Eyes: Eyes: Reports no additional eye complaints, Denies blurry vision, Denies change in vision, Denies diplopia, Denies eye discharge, Denies loss of vision and Denies eye pain ENT: Denies dizziness and Reports headache(s) Cardiovascular: Cardiovascular: Reports no additional cardiovascular complaints, Denies chest pain, Denies lightheadedness, Denies Loss of Consciousness and Denies dyspnea Respiratory: Respiratory: Reports no additional respiratory complaints and Denies dyspnea Gastrointestinal: Gastrointestinal: Reports no additional gastrointestinal complaints, Denies abdominal pain, Denies melena, Denies hematochezia, Denies change in bowel habits and Denies change in stool character Genitourinary: Genitourinary: Denies hematuria, Denies urinary frequency, Denies dysuria, Denies urinary incontinence, Denies urinary hesitancy and Denies urinary urgency Musculoskeletal: Musculoskeletal: Reports no additional musculoskeletal complaints, Denies numbness and Denies tingling Neurologic: Denies dizziness, Reports headache(s), Denies loss of vision, Denies numbness and Denies tingling Comments: sensation of off balance Psychiatric: Psychiatric: Reports no additional psychiatric complaints Endocrine: Endocrine: Reports no additional endocrine complaints Hematologic/Lymphatic: Hematologic/Lymphatic: Reports no additional hematologic/lymphatic complaints Allergic/Immunologic: Allergic/Immunologic: Reports no additional allergic/immunologic complaints PMFSH Past Medical History Attestation statement: The following information was validated with the patient. Source: old records reviewed and nursing notes reviewed Medical History Cataract HLD (hyperlipidemia) HTN (hypertension) Sleep apnea TIA (transient ischemic attack) Surgical History Hx of appendectomy Social History Social History Advance Directives: Yes Advance Directives Information Provided: No Advance Directives on File: No Physical Exam ED Vital Signs: Vital Signs - 24 hr 05/07/23 07:20 05/07/23 08:15 05/07/23 10:03 Temperature 97.1 F 98.1 F Pulse Rate 66 53 86 Respiratory Rate 17 18 16 Blood Pressure 176/86 H 154/66 H 128/56 L Pulse Oximetry 99 96 99 Oxygen Delivery Method Room Air Room Air Room Air BMI result Body Mass Index 31.1 Const General: cooperative, no acute distress, alert and awake Nutritional Appearance: well nourished Orientation/consciousness: patient oriented x3 Limitations: no limitations HENMT Head: Yes normal to inspection and Yes atraumatic Ears: hearing grossly normal bilaterally and external ears normal General nose exam: Normal external nose present, no nasal discharge noted and no epistaxis Face and sinus: Yes normal facial exam, No abrasion and No laceration Mouth: Normal oral and palatal mucosa present, no drooling and no muffled voice Eyes General: appearance normal, both eyes and all related structures Periorbital: periorbital findings normal Eyelids: Yes eyelids normal Conjunctivae: conjunctivae normal Pupils: Equal, round and reactive pupils present EOM: EOMs intact bilaterally Neck Neck: Yes normal visual inspection, Yes full ROM and Yes no lymphadenopathy Chest Chest palpation & inspection: normal inspection of the chest Resp Effort & Inspection: normal respiratory effort and able to speak in complete sentences Auscultation: clear to auscultation bilaterally Cardio Rate: regular rate Rhythm: regular rhythm GI Inspection: Yes normal to inspection Palpation (GI): Soft to palpation, not firm, nontender and no guarding Neuro General: patient oriented x3 and moves all extremities Cranial nerves: Yes Equal, round and reactive pupils present Cognition (Neuro): normal cognition Motor exam (neuro): 5/5 motor strength present throughout Sensory Exam: Normal double simultaneous stimulation for sensation Coordination: [id number] test normal Extrem General: Yes normal to inspection, Yes full ROM and Yes capillary refill normal Psych Appearance: grossly normal Mental Status: mental status grossly normal Affect: normal affect Attitude: cooperative Thought process: Normal thought process present Thought content: Normal thought content present Insight: Good insight present (Psych) NIH Stroke Scale Internal: Initial- Upon Arrival Time: 07:41 Level of Consciousness: Alert Level of Consciousness Questions: Answers both questions correctly Level of Consciousness Commands: Performs both tasks correctly Best Gaze: Normal Visual: No visual loss Facial Palsy: Normal Motor Arm (Right): No drift Motor Arm (Left): No drift Motor Leg (Right): No drift Motor Leg (Left): No drift Limb Ataxia: Absent Sensory: Normal Best Language: No aphasia Dysarthia: Normal Extinction and Inattention: No abnormality Score: 0 Medical Decision Making Medical Decision Making [facility] [place] Narrative: Patient is an 87 year old assigned female at with a history of CVA on Warfarin presenting to the emergency department today with a headache and concern she's having another stroke. Patient's physical exam was unremarkable. Patient's blood work was unremarkable. Patient's urine showed a possible UTI however, the patient does not have any symptoms at this time, will await cultures before treating. Patient's EKG was unremarkable. Patient's head CT showed no acute process. I explained my physical exam findings as well as all test results to the patient and the patient's son. I answered all questions asked by the patient and the patient's son. I stressed the importance of the patient taking her medication as prescribed. I stressed the importance of the p atient following up with her primary care provider and her neurologist. I stressed the importance of the patient returning to the emergency department immediately if her symptoms were to worsen or if she were to develop any dizziness, shortness of breath, difficulty breathing, chest pain, blurry vision, loss of vision, nausea, vomiting, abdominal pain, fever, chills, back pain, or any other complaints. Patient and the patient's son verbalized agreement and understanding with this treatment plan and discharge. Differential Diagnosis Differential Diagnoses: The differential diagnosis associated with the presentation includes CVA Headache Migraine Admission/Observation Consideration of admission/observation: Escalation of care including admission/observation considered Patient would have been admitted to the hospital had her work up had any find ings where hospital admission was appropriate and her clinical presentation warranted hospital admission. Lab Data [facility] [place] Lab Attestation statement: I reviewed the patient's lab results. My interpretation of these studies and their corresponding values is that they are grossly normal. 05/07/23 07:43 Labs: Lab Results 05/07/23 05/07/23 05/07/23 Range/Units 07:43 07:43 07:43 WBC 5.3 (4.8-10.8) X10*3/uL RBC 4.46 (4.20-5.50) X10*6/uL Hgb 14.1 (12.0-16.0) g/dl Hct 41.7 (37.0-47.0) % MCV 93.5 (80.0-98.0) fL MCH 31.6 (27.0-33.0) pg MCHC 33.8 (31.0-35.0) g/dl RDW 11.9 (11.0-16.0) % Plt Count 143 L (160-400) X10*3/uL MPV 9.9 (9.4-12.3) fL Immature Gran % (Auto) 0.2 (0.0-0.4) % Neut % (Auto) 67.9 (45-73) % Lymph % (Auto) 20.0 (20-40) % [place] % (Auto) 10.0 (2-11) % Eos % (Auto) 1.3 (0-4) % Baso % (Auto) 0.6 (0-2) % Lymph # (Auto) 1.1 L (1.2-4.9) X10*3/uL [place] # (Auto) 0.5 (0.1-1.2) X10*3/uL Eos # (Auto) 0.1 (0.0-0.4) X10*3/uL Baso # (Auto) 0.0 (0.0-0.2) X10*3/uL Abs Immat Gran (auto) 0.01 (0.00-0.03) X10*3/uL Absolute Neuts (auto) 3.6 (2.0-8.3) x10*3/uL Absolute Nucleated RBC 0.000 (0.0-0.012) X10*3/uL Nucleated RBC % (auto) 0.0 (0.0-0.2) /100WBC PT (11.1-13.3) SEC INR (0.9-1.1) APTT 38.9 H (26.0-36.4) SEC Sodium Cancelled Potassium Cancelled Chloride Cancelled Carbon Dioxide Cancelled Anion Gap Cancelled BUN Cancelled Creatinine Cancelled Estim Creat Clear Calc Cancelled Estimated GFR Cancelled Random Glucose Cancelled Calcium Cancelled Total Bilirubin 1.1 H (0.0-1.0) mg/dL Direct Bilirubin 0.4 (0.0-0.5) mg/dL AST 19 (5-31) U/L ALT 17 (0-31) U/L Alkaline Phosphatase 78 (39-117) U/L Troponin I High Sens (<3.5-17.0) ng/L Total Protein 7.1 (6.5-8.0) g/dL Albumin 4.2 (3.5-5.0) g/dL Lipase 21 (8-78) U/L Urine Color Urine Appearance Urine pH (5.0-9.0) Ur Specific [place] (1.005-1.025) Urine Protein (Neg-Trace) mg/dL Urine Glucose (UA) (Negative) mg/dL Urine Ketones (Negative) mg/dL Urine Blood (Negative) Urine Nitrite (Negative) Ur Leukocyte Esterase (Negative) Urine RBC (0-2) /HPF Urine WBC (0-5) /HPF Ur Squamous Epith Cells (0-2) /HPF Urine Bacteria (None Seen) Hyaline Casts (0-2) /LPF 05/07/23 05/07/23 05/07/23 Range/Units 07:43 08:15 08:15 WBC (4.8-10.8) X10*3/uL RBC (4.20-5.50) X10*6/uL Hgb (12.0-16.0) g/dl Hct (37.0-47.0) % MCV (80.0-98.0) fL MCH (27.0-33.0) pg MCHC (31.0-35.0) g/dl RDW (11.0-16.0) % Plt Count (160-400) X10*3/uL MPV (9.4-12.3) fL Immature Gran % (Auto) (0.0-0.4) % Neut % (Auto) (45-73) % Lymph % (Auto) (20-40) % [place] % (Auto) (2-11) % Eos % (Auto) (0-4) % Baso % (Auto) (0-2) % Lymph # (Auto) (1.2-4.9) X10*3/uL [place] # (Auto) (0.1-1.2) X10*3/uL Eos # (Auto) (0.0-0.4) X10*3/uL Baso # (Auto) (0.0-0.2) X10*3/uL Abs Immat Gran (auto) (0.00-0.03) X10*3/uL Absolute Neuts (auto) (2.0-8.3) x10*3/uL Absolute Nucleated RBC (0.0-0.012) X10*3/uL Nucleated RBC % (auto) (0.0-0.2) /100WBC PT (11.1-13.3) SEC INR (0.9-1.1) APTT (26.0-36.4) SEC Sodium 142 Potassium 4.2 Chloride 110 H Carbon Dioxide 24 Anion Gap 12 BUN 18 H Creatinine 0.76 Estim Creat Clear Calc 56.0 Estimated GFR > 60 Random Glucose 140 H Calcium 9.7 Total Bilirubin 1.1 H (0.0-1.0) mg/dL Direct Bilirubin (0.0-0.5) mg/dL AST 20 (5-31) U/L ALT 17 (0-31) U/L Alkaline Phosphatase 77 (39-117) U/L Troponin I High Sens 3.6 (<3.5-17.0) ng/L Total Protein 7.2 (6.5-8.0) g/dL Albumin 4.2 (3.5-5.0) g/dL Lipase (8-78) U/L Urine Color Yellow Urine Appearance Clear Urine pH 6.5 (5.0-9.0) Ur Specific [place] <= 1.005 (1.005-1.025) Urine Protein Negative (Neg-Trace) mg/dL Urine Glucose (UA) Negative (Negative) mg/dL Urine Ketones Negative (Negative) mg/dL Urine Blood Negative (Negative) Urine Nitrite Negative (Negative) Ur Leukocyte Esterase Large (3+) H (Negative) Urine RBC 0-2 (0-2) /HPF Urine WBC >50 H (0-5) /HPF Ur Squamous Epith Cells 0-2 (0-2) /HPF Urine Bacteria None Seen (None Seen) Hyaline Casts 0-2 (0-2) /LPF 05/07/23 Range/Units 09:45 WBC (4.8-10.8) X10*3/uL RBC (4.20-5.50) X10*6/uL Hgb (12.0-16.0) g/dl Hct (37.0-47.0) % MCV (80.0-98.0) fL MCH (27.0-33.0) pg MCHC (31.0-35.0) g/dl RDW (11.0-16.0) % Plt Count (160-400) X10*3/uL MPV (9.4-12.3) fL Immature Gran % (Auto) (0.0-0.4) % Neut % (Auto) (45-73) % Lymph % (Auto) (20-40) % [place] % (Auto) (2-11) % Eos % (Auto) (0-4) % Baso % (Auto) (0-2) % Lymph # (Auto) (1.2-4.9) X10*3/uL [place] # (Auto) (0.1-1.2) X10*3/uL Eos # (Auto) (0.0-0.4) X10*3/uL Baso # (Auto) (0.0-0.2) X10*3/uL Abs Immat Gran (auto) (0.00-0.03) X10*3/uL Absolute Neuts (auto) (2.0-8.3) x10*3/uL Absolute Nucleated RBC (0.0-0.012) X10*3/uL Nucleated RBC % (auto) (0.0-0.2) /100WBC PT 35.1 H (11.1-13.3) SEC INR 2.9 H (0.9-1.1) APTT (26.0-36.4) SEC Sodium Potassium Chloride Carbon Dioxide Anion Gap BUN Creatinine Estim Creat Clear Calc Estimated GFR Random Glucose Calcium Total Bilirubin (0.0-1.0) mg/dL Direct Bilirubin (0.0-0.5) mg/dL AST (5-31) U/L ALT (0-31) U/L Alkaline Phosphatase (39-117) U/L Troponin I High Sens (<3.5-17.0) ng/L Total Protein (6.5-8.0) g/dL Albumin (3.5-5.0) g/dL Lipase (8-78) U/L Urine Color Urine Appearance Urine pH (5.0-9.0) Ur Specific [place] (1.005-1.025) Urine Protein (Neg-Trace) mg/dL Urine Glucose (UA) (Negative) mg/dL Urine Ketones (Negative) mg/dL Urine Blood (Negative) Urine Nitrite (Negative) Ur Leukocyte Esterase (Negative) Urine RBC (0-2) /HPF Urine WBC (0-5) /HPF Ur Squamous Epith Cells (0-2) /HPF Urine Bacteria (None Seen) Hyaline Casts (0-2) /LPF Independent Interpretation I performed an independent interpretation of an: EKG and CT Scan Interpretation: My interpretation is in agreement with the radiologist's impression of this imaging study. EXAMINATION: CT HEAD WITHOUT CONTRAST CLINICAL INFORMATION: Off balance. History of stroke. COMPARISON: Head MRA 05/26/2017. Brain MRI 07/17/2021. TECHNIQUE: Contiguous axial imaging was performed from the skull base to vertex without intravenous administration of contrast. This CT examination was performed using dose optimization techniques as appropriate, variously including the following: *Automated exposure control *Adjustment of mA and/or kV according to patient size (this includes techniques or standardized protocols for targeted exams where dose is matched to indication/reason for exam; i.e. extremities or head) *Use of iterative reconstruction technique DLP: 660 mGy-cm. FINDINGS: There is no intracranial hemorrhage, extra-axial collection, mass effect, or acute territorial infarction. Small chronic lacunar infarcts in the bilateral cerebellar hemispheres and in the bilateral basal ganglia. Mild chronic microangiopathic changes are seen within the white matter. There is a small chronic infarct within the left frontal lobe deep white matter. The ventricles are normal in size without hydrocephalus. A calcified right MCA aneurysm is again demonstrated. There is chronic inflammatory change within the left sphenoid sinus with polypoid opacification hyperostotic bone thickening again demonstrated. CT/CT head/brain wo IV con IMPRESSION: No acute intracranial abnormality. Redemonstration of calcified right MCA aneurysm. Chronic microangiopathic changes and chronic infarcts as above. Dictated By: ANDREA LOERA MD Signed By: Electronically signed by ANDREA LOERA MD 05/07/23 0905 Vent. Rate: 059 BPM ? ? Atrial Rate: 059 BPM P-R Int: 208 ms? QRS Dur: 102 ms QT Int: 442 ms ? ? ? P-R-T Axes: 047 -25 024 degrees QTc Int: 437 ms ? Sinus bradycardia Moderate voltage criteria for LVH, may be normal variant ( R in aVL , Gallo product ) Cannot rule out Anterior infarct , age undetermined Abnormal ECG When compared with ECG of 25-MAY-2017 14:44, No significant change was found DD/ 0736 Radiology Impression Discussion of test interpretation with radiology: I have reviewed the radiologist's reading. Independent Historian Clinical information obtained from an independent historian. History obtained from or confirmed by: Other (patient's son provided additional history and confirmed the history provided by the patient.) External Record Review External record reviewed: Office record Chronic Conditions Patient?s care impacted by: Hypertension and Other (CVA) Critical Care Time Critical Care Time Critical Care Time: Yes Total Critical Care Time: 45 Attestation: I spent 45 minutes of Critical Care Time with this patient. This does not include time spent on separately reported billable procedures. Discharge Plan Discharge Clinical Impression: Headache Patient Disposition: Home, Self-Care Instructions: Acute Headache (DC) Additional Instructions: Follow up with your primary care provider and your neurologist. Return to the emergency department immediately if your symptoms worsen or if you develop any dizziness, shortness of breath, difficulty breathing, chest pain, blurry vision, loss of vision, nausea, vomiting, abdominal pain, fever, chills, back pain, or any other complaints. Prescriptions: No Action warfarin 2.5 mg tablet 2.5 mg PO DAILY Qty: 90 0RF Protocol: Dose Management Condition: Thursday (Week One) Dose/Route: 1.25 mg Instruction: 0.5 x 2.5 mg tablets Condition: Thursday Dose/Route: 2.5 mg Instruction: 1 x 2.5 mg tablet Condition: Thursday Dose/Route: 1.25 mg Instruction: 0.5 x 2.5 mg tablets Condition: Thursday Dose/Route: 1.25 mg Instruction: 0.5 x 2.5 mg tablets Condition: Dose/Route: 2.5 mg Instruction: 1 x 2.5 mg tablet Condition: Thursday Dose/Route: 1.25 mg Instruction: 0.5 x 2.5 mg tablets Condition: Thursday Dose/Route: 1.25 mg Instruction: 0.5 x 2.5 mg tablets Condition: Thursday (Week Two) Dose/Route: 1.25 mg Instruction: 0.5 x 2.5 mg tablets Condition: Thursday Dose/Route: 2.5 mg Instruction: 1 x 2.5 mg tablet Condition: Thursday Dose/Route: 1.25 mg Instruction: 0.5 x 2.5 mg tablets Condition: Thursday Dose/Route: 1.25 mg Instruction: 0.5 x 2.5 mg tablets Condition: Dose/Route: 2.5 mg Instruction: 1 x 2.5 mg tablet Condition: Thursday Dose/Route: 1.25 mg Instruction: 0.5 x 2.5 mg tablets Condition: Thursday Dose/Route: 1.25 mg Instruction: 0.5 x 2.5 mg tablets Protocol Text: Adjustment Start Date: Thursday04/15/23 INR Value: 2.3 INR Date: 04/15/23 Recheck Date: 05/13/23 atorvastatin 10 mg tablet 10 mg PO DAILY atenolol 25 mg tablet 25 mg PO DAILY losartan 25 mg tablet 25 mg PO DAILY FISH OIL /REVESTERTITOL PO Patient Comments: 1 TAB DAILY aspirin 81 mg capsule 81 mg PO DAILY ascorbic acid (vitamin C) 500 mg capsule PO cholecalciferol (vitamin D3) PO Referrals: Aries Giles MD [Primary Care Provider] - Interventions: ED Discharge Assessment Last Done: 05/07/23 10:27 Discharge Date/Time: 05/07/23 10:31 Print Language: [place]
[2023-05-07 07:48] LABS: MANUAL DIFF FLAG NO
[2023-05-07 07:57] LABS: Basophils Percent Auto 0.6 % (0-2); Eosinophils Absolute Auto 0.1 X10*3/uL (0.0-0.4); Eosinophils Percent Auto 1.3 % (0-4); Hematocrit 41.7 % (37.0-47.0); Hemoglobin 14.1 g/dl (12.0-16.0); Imm Gran Abs Auto 0.01 X10*3/uL (0.00-0.03); Imm Gran Pct Auto 0.2 % (0.0-0.4); Lymphocytes Absolute Auto 1.1 X10*3/uL (1.2-4.9); Mean Corpuscular HGB Conc 33.8 g/dl (31.0-35.0); Mean Corpuscular Hemoglobin 31.6 pg (27.0-33.0); Mean Corpuscular Volume 93.5 fL (80.0-98.0); Mean Platelet Volume 9.9 fL (9.4-12.3); Monocytes Absolute Auto 0.5 X10*3/uL (0.1-1.2); Neutrophils Absolute Auto 3.6 x10*3/uL (2.0-8.3); Neutrophils Percent Auto 67.9 % (45-73); Platelet Count 143 X10*3/uL (160-400); Red Blood Count 4.46 X10*6/uL (4.20-5.50); Red Cell Distribution Width 11.9 % (11.0-16.0); White Blood Count 5.3 X10*3/uL (4.8-10.8)
[2023-05-07 08:02] LABS: Partial Thromboplastin Time 38.9 SEC (26.0-36.4)
[2023-05-07 08:07] LABS: Alanine Aminotransferase 17 U/L (0-31); Albumin Level 4.2 g/dL (3.5-5.0); Alkaline Phosphatase 78 U/L (39-117); Aspartate Amino Transferase 19 U/L (5-31); Bilirubin Direct 0.4 mg/dL (0.0-0.5); Bilirubin Total 1.1 mg/dL (0.0-1.0); Lipase 21 U/L (8-78); Total Protein 7.1 g/dL (6.5-8.0)
[2023-05-07 08:14] LABS: Troponin-I High Sensitivity 3.6 ng/L (<3.5-17.0)
[2023-05-07 08:15] VITALS: BP 154/66; PULSE 53; RESP 18; TEMP 36.7; O2SAT 96
[2023-05-07 08:26] LABS: Appearance Urine Clear; Color Urine Yellow; Glucose Urine UA Negative (Negative); Leukocyte Esterase Urine Large (3+) (Negative); Nitrite Urine Negative (Negative); PH 6.5 (5.0-9.0); Specific Gravity - Urine <= 1.005 (1.005-1.025); UMIC TRIGGER UACC YES; Urine Blood Negative (Negative); Urine Ketones Negative (Negative); Urine Protein Negative (Neg-Trace)
[2023-05-07 08:28] LABS: Bacteria Urine None Seen (None Seen); Hyaline Casts Urine 0-2 /LPF (0-2); RBC Urine 0-2 /HPF (0-2); Squamous Epithelial Cell Urine 0-2 /HPF (0-2); UACC Culture Trigger YES; WBC Urine >50 /HPF (0-5)
[2023-05-07 08:41] LABS: Alanine Aminotransferase 17 U/L (0-31); Albumin Level 4.2 g/dL (3.5-5.0); Alkaline Phosphatase 77 U/L (39-117); Anion Gap 12 (12-20); Aspartate Amino Transferase 20 U/L (5-31); Bilirubin Total 1.1 mg/dL (0.0-1.0); Blood Urea Nitrogen 18 mg/dL (9-16); Calcium 9.7 mg/dL (8.4-10.2); Carbon Dioxide 24 mmol/L (22-29); Chloride 110 mmol/L (96-108); Estimated Glomerular Filt Rate > 60; Glucose Random 140 mg/dL (60-115); Potassium 4.2 mmol/L (3.3-5.1); Sodium 142 mmol/L (135-145); Total Protein 7.2 g/dL (6.5-8.0)
[2023-05-07 10:00] LABS: INTERNATIONAL NORM RATIO 2.9 (0.9-1.1); Prothrombin Time 35.1 SEC (11.1-13.3)
[2023-05-07 10:03] VITALS: BP 128/56; PULSE 86; RESP 16; O2SAT 99
--- NOTE | 2023-05-07 10:28 | PC.NURSE ---
medically cleared for discharge. discharge instructions reviewed with pt and her son at her bedside.pt ambulated to exit using cane, no complaints
== END 2023-05-07 10:31 | disposition home or self-care (01) ==
PROVIDERS: Physician Assistant Medical; Emergency Provider Emergency Medicine; PCP Internal Medicine
DX: R51.9 Headache, unspecified (principal); N39.0 Urinary tract infection, site not specified; R29.700 NIHSS score 0; I10 Essential (primary) hypertension; E78.5 Hyperlipidemia, unspecified; Z86.73 Personal history of transient ischemic attack (TIA), and cerebral infarction without residual deficits; Z79.82 Long term (current) use of aspirin; Z79.01 Long term (current) use of anticoagulants
CPT/HCPCS: 36415; 70450; 80053; 80076; 81001; 82248; 83690; 84484; 85025; 85610; 85730; 87086; 87088; 87186; 93005; 99284

== ENCOUNTER 2023-05-13 08:05 | Outpatient (AMB) | payer MEDICARE, SELFPAY ==
[2023-05-13 08:32] LABS: Prothrombin Time Whole Bld POC 29.8 sec (11.1-13.5); ~PT, ~INR - Anti Coag Clinic 2.5 (0.9-1.1)
--- NOTE | 2023-05-13 08:32 | MHC.OFFVISCO ---
Intake Intake Visit Reasons: Anticoagulation Allergies meloxicam Allergy (Intermediate, Uncoded 05/13/23 08:21) Nausea Medication List - Last Reconciled 05/13/23 by Lizet Macdonald RN ascorbic acid (vitamin C) mg PO aspirin 81 mg PO DAILY atenolol 25 mg PO DAILY atorvastatin 10 mg PO DAILY cholecalciferol (vitamin D3) PO [FISH OIL /REVESTERTITOL PO] losartan 25 mg PO DAILY warfarin 2.5 mg See Protocol PO DAILY Nursing Note INR: 2.5- in therapeutic range Medications and supplements reviewed- atenolol increased to 25mg daily, lorazepam prn No changes in health, diet, medications, or supplements, Denies any signs and symptoms of bleeding or bruising or clotting. Bleeding, bruising, clotting discussed Nutritional guidance given Dose: 2.5mg x 2, 1.25mg x 5 F/U INR: 4 weeks Patient verbalizes understanding of instructions given pt recent [facility] [place] ed visit 05/06/23 for c.o headache. she states tesing neg, medication changes has not started lorazepam yet- will call acs with dose and freq Anti-Coag Initial Assessment Social Hx Alcohol intake frequency: does not drink Coding Level of Care Code Est Patient Level 1 Diagnoses Current use of anticoagulant therapy Z79.01 Assessment & Plan Assessment & Plan (1) Current use of anticoagulant therapy: Code(s): Z79.01 - emt intermediate (current) use of anticoagulants Category: Medical
== END 2023-05-13 08:38 | disposition home or self-care (01) ==
LOC: HO.ACS 08:05
PROVIDERS: PCP Internal Medicine; Visit Provider Internal Medicine
DX: Z79.01 Long term (current) use of anticoagulants (principal)

== ENCOUNTER → 2023-05-13 08:05 | Outpatient (BNVA) | payer MEDICARE, SELFPAY | PROVIDERS: PCP Internal Medicine; Visit Provider Internal Medicine | DX: Z86.73 Personal history of transient ischemic attack (TIA), and cerebral infarction without residual deficits (principal); Z79.01 Long term (current) use of anticoagulants; Z51.81 Encounter for therapeutic drug level monitoring | CPT/HCPCS: 85610; 99211 ==

== ENCOUNTER 2023-05-16 07:29 | Outpatient (REF) | payer MEDICARE, SELFPAY ==
[2023-05-16 09:52] LABS: Appearance Urine Cloudy; Color Urine Yellow; Glucose Urine UA Negative (Negative); Leukocyte Esterase Urine Large (3+) (Negative); Nitrite Urine Negative (Negative); PH 6.5 (5.0-9.0); UMIC TRIGGER UACC YES; Urine Blood Trace (Negative); Urine Ketones Negative (Negative); Urine Protein Trace mg/dL (Neg-Trace)
[2023-05-16 10:18] LABS: Bacteria Urine 4+ (None Seen); Hyaline Casts Urine 0-2 /LPF (0-2); RBC Urine 0-2 /HPF (0-2); Squamous Epithelial Cell Urine 0-2 /HPF (0-2); UACC Culture Trigger YES; WBC Urine >50 /HPF (0-5)
== END 2023-05-16 07:30 | disposition home or self-care (01) ==
LOC: HO.LAB 07:29
PROVIDERS: PCP Internal Medicine; Visit Provider Internal Medicine
DX: R35.0 Frequency of micturition (principal)
CPT/HCPCS: 81001; 81003; 87086; 87088; 87186

== ENCOUNTER 2023-06-10 08:05 | Outpatient (AMB) | payer MEDICARE, SELFPAY ==
[2023-06-10 08:22] LABS: Prothrombin Time Whole Bld POC 34.4 sec (11.1-13.5); ~PT, ~INR - Anti Coag Clinic 2.9 (0.9-1.1)
--- NOTE | 2023-06-10 08:23 | MHC.OFFVISCO ---
Intake Intake Visit Reasons: Anticoagulation Allergies meloxicam Allergy (Intermediate, Uncoded 06/10/23 08:16) Nausea Medication List - Last Reconciled 06/10/23 by Macarena Faust, RN ascorbic acid (vitamin C) mg PO aspirin 81 mg PO DAILY atenolol 25 mg PO DAILY atorvastatin 10 mg PO DAILY cholecalciferol (vitamin D3) PO [FISH OIL /REVESTERTITOL PO] lorazepam 0.5 mg PO DAILY PRN losartan 25 mg PO DAILY warfarin 2.5 mg See Protocol PO DAILY Nursing Note NO CP,SOB,DIET/MED CHANGES,FALLS OR SX OF BLEEDING. CONTINUE PRESENT DOSE AND FOLLOW-UP IN 4 WEEKS. GOOD UNDERSTANDING OF DOSING INSTR. Anti-Coag Initial Assessment Social Hx Alcohol intake frequency: does not drink Coding Level of Care Code Est Patient Level 1 Diagnoses Current use of anticoagulant therapy Z79.01 Assessment & Plan Assessment & Plan (1) Current use of anticoagulant therapy: Code(s): Z79.01 - shelter (current) use of anticoagulants Category: Medical
== END 2023-06-10 08:35 | disposition home or self-care (01) ==
LOC: HO.ACS 08:05
PROVIDERS: PCP Internal Medicine; Visit Provider Internal Medicine
DX: Z79.01 Long term (current) use of anticoagulants (principal)

== ENCOUNTER → 2023-06-10 08:05 | Outpatient (BNVA) | payer MEDICARE, SELFPAY | PROVIDERS: PCP Internal Medicine; Visit Provider Internal Medicine | DX: Z86.73 Personal history of transient ischemic attack (TIA), and cerebral infarction without residual deficits (principal); Z79.01 Long term (current) use of anticoagulants; Z51.81 Encounter for therapeutic drug level monitoring | CPT/HCPCS: 85610; 99211 ==

== ENCOUNTER 2023-07-01 08:49 | Outpatient (REF) | payer MEDICARE, SELFPAY ==
--- NOTE | ~2023-07-01 | MM_ITS ---
EXAMINATION: MM SCREENING DIGITAL BREAST TOMOSYNTHESIS, BILATERAL CLINICAL INFORMATION: Screening. Asymptomatic. COMPARISON: Mammography: This study is compared with prior exams dating back to 2019 TECHNIQUE: Digital breast tomosynthesis is performed in both the craniocaudal and mediolateral oblique views along with computer-aided detection (CAD). Synthesized 2D images are generated from the tomosynthesis. FINDINGS: There are scattered areas of fibroglandular density (ACR BI-RADS breast composition Category b). There are no significant masses, abnormal calcifications, or other abnormalities. MM/MM tomosynthesis screening BI IMPRESSION: No mammographic evidence of malignancy. ASSESSMENT: BI-RADS BI-RADS 1 - Negative RECOMMENDATION: Routine annual mammography screening. 1 year F/U This examination should not preclude the clinical evaluation of a suspicious palpable abnormality. This patient's information was entered into a reminder system with a target due date for their next mammogram.
== END 2023-07-01 08:50 | disposition home or self-care (01) ==
LOC: HO.MAMMO 08:49
PROVIDERS: PCP Internal Medicine; Visit Provider Internal Medicine
DX: Z12.31 Encounter for screening mammogram for malignant neoplasm of breast (principal)
CPT/HCPCS: 77063; 77067

== ENCOUNTER → 2023-07-01 09:00 | Outpatient (BNV) | payer MEDICARE, SELFPAY | PROVIDERS: PCP Internal Medicine; Visit Provider Radiology Diagnostic Radiology | DX: Z12.31 Encounter for screening mammogram for malignant neoplasm of breast (principal) | CPT/HCPCS: 77063; 77067 ==

== ENCOUNTER 2023-07-08 07:59 | Outpatient (AMB) | payer MEDICARE, SELFPAY ==
--- NOTE | 2023-07-08 08:32 | MHC.OFFVISCO ---
Intake Intake Visit Reasons: Anticoagulation Allergies meloxicam Allergy (Intermediate, Uncoded 07/08/23 08:16) Nausea Medication List - Last Reconciled 07/08/23 by Lety Yusuf RN ascorbic acid (vitamin C) mg PO aspirin 81 mg PO DAILY atenolol 25 mg PO DAILY atorvastatin 10 mg PO DAILY cholecalciferol (vitamin D3) PO lorazepam 0.5 mg PO DAILY PRN losartan 25 mg PO DAILY warfarin 2.5 mg See Protocol PO DAILY Nursing Note INR 1.7 out of therapeutic range Medications and supplements reviewed Patient status: HAD MORE GREENS RECENTLY - STARTED THE REDS AND GREENS SUPPLEMENT ABOUT 1 MONTH AGO - MAY HAVE LOWERED THE INR Medications or supplements: STOPPED REVESTERITOL SUPPLEMENT OVER A MONTH AGO Diet: GOOD Denies any signs and symptoms of bleeding or clotting or unusual bruising Bleeding, bruising, clotting discussed Nutritional guidance given: REVIEW FOOD LIST DURING SEASONAL CHANGES, EAT MORE ORANGE AND REDS WHEN EATING MORE GREENS Dose: 2.5MG X 2 DAYS/ 1.25MG X5 DAYS F/U INR Date : 2 WEEKS Patient verbalizing understanding of instructions given. Anti-Coag Initial Assessment Social Hx Alcohol intake frequency: does not drink Coding Level of Care Code Est Patient Level 1 Diagnoses Current use of anticoagulant therapy Z79.01 Results AMB INR Fingerstick AMB INR Fingerstick 1.7 Last Edit by Lety Yusuf RN on 07/08/23 08:26 manual entry interface failure Assessment & Plan Assessment & Plan (1) Current use of anticoagulant therapy: Code(s): Z79.01 - [facility] (current) use of anticoagulants Category: Medical Medications: New [omega 3] pt states 1 cap daily 500mg [REDS AND GREENS SUPPLEMENT] 1 cap daily of each supplement
[2023-07-08 09:16] LABS: Prothrombin Time Whole Bld POC 20.4 sec (11.1-13.5); ~PT, ~INR - Anti Coag Clinic 1.7 (0.9-1.1)
== END 2023-07-08 08:41 | disposition home or self-care (01) ==
LOC: HO.ACS 07:59
PROVIDERS: PCP Internal Medicine; Visit Provider Internal Medicine
DX: Z79.01 Long term (current) use of anticoagulants (principal)

== ENCOUNTER → 2023-07-08 07:59 | Outpatient (BNVA) | payer MEDICARE, SELFPAY | PROVIDERS: PCP Internal Medicine; Visit Provider Internal Medicine | DX: I69.30 Unspecified sequelae of cerebral infarction (principal); Z79.01 Long term (current) use of anticoagulants; Z51.81 Encounter for therapeutic drug level monitoring | CPT/HCPCS: 85610; 99211 ==

== ENCOUNTER 2023-07-22 07:53 | Outpatient (AMB) | payer MEDICARE, SELFPAY ==
--- NOTE | 2023-07-22 08:04 | MHC.OFFVISCO ---
Intake Intake Visit Reasons: Anticoagulation Allergies meloxicam Allergy (Intermediate, Uncoded 07/22/23 08:01) Nausea Medication List - Last Reconciled 07/22/23 by Lety Yusuf RN ascorbic acid (vitamin C) mg PO aspirin 81 mg PO DAILY atenolol 25 mg PO DAILY atorvastatin 10 mg PO DAILY cholecalciferol (vitamin D3) PO lorazepam 0.5 mg PO DAILY PRN losartan 25 mg PO DAILY [omega 3 pt states 1 cap daily 500mg ] [REDS AND GREENS SUPPLEMENT 1 cap daily of each supplement ] warfarin 2.5 mg See Protocol PO DAILY Nursing Note pt visit delayed due to interfacing issues with meters and expanse by 7 minutes HAD MORE ORANGE AND REDS TO HELP RAISE THE INR INR: 3.4 OUT therapeutic range Medications and supplements reviewed No changes in health, diet, medications, or supplements, Denies any signs and symptoms of bleeding or bruising or clotting. Bleeding, bruising, clotting discussed Nutritional guidance given Dose: KEEP SAME DOSE 2.5MG X 2 DAYS/ 1.25MG X 5 DAYS F/U INR: 3 WEEKS Patient verbalizes understanding of instructions given Anti-Coag Initial Assessment Social Hx Alcohol intake frequency: does not drink Coding Level of Care Code Est Patient Level 1 Diagnoses Current use of anticoagulant therapy Z79.01 Results AMB INR Fingerstick AMB INR Fingerstick 3.4 Last Edit by Lety Yusuf RN on 07/22/23 08:13 failed interfacing manual entry ongoing Assessment & Plan Assessment & Plan (1) Current use of anticoagulant therapy: Code(s): Z79.01 - residential (current) use of anticoagulants Category: Medical
[2023-07-22 11:35] LABS: Prothrombin Time Whole Bld POC 40.6 sec (11.1-13.5); ~PT, ~INR - Anti Coag Clinic 3.4 (0.9-1.1)
== END 2023-07-22 08:18 | disposition home or self-care (01) ==
LOC: HO.ACS 07:53
PROVIDERS: PCP Internal Medicine; Visit Provider Internal Medicine
DX: Z79.01 Long term (current) use of anticoagulants (principal)

== ENCOUNTER → 2023-07-22 07:53 | Outpatient (BNVA) | payer MEDICARE, SELFPAY | PROVIDERS: PCP Internal Medicine; Visit Provider Internal Medicine | DX: Z86.73 Personal history of transient ischemic attack (TIA), and cerebral infarction without residual deficits (principal); Z79.01 Long term (current) use of anticoagulants; Z51.81 Encounter for therapeutic drug level monitoring | CPT/HCPCS: 85610; 99211 ==

== ENCOUNTER 2023-08-12 08:13 | Outpatient (AMB) | payer MEDICARE, SELFPAY ==
--- NOTE | 2023-08-12 08:27 | MHC.OFFVISCO ---
Intake Intake Visit Reasons: Anticoagulation Allergies meloxicam Allergy (Intermediate, Uncoded 08/12/23 08:16) Nausea Medication List - Last Reconciled 08/12/23 by Lety Yusuf RN ascorbic acid (vitamin C) mg PO aspirin 81 mg PO DAILY atenolol 25 mg PO DAILY atorvastatin 10 mg PO DAILY cholecalciferol (vitamin D3) PO lorazepam 0.5 mg PO DAILY PRN losartan 25 mg PO DAILY [omega 3 pt states 1 cap daily 500mg ] [REDS AND GREENS SUPPLEMENT 1 cap daily of each supplement ] warfarin 2.5 mg See Protocol PO DAILY Nursing Note INR: 2.9 in therapeutic range Medications and supplements reviewed No changes in health, diet, medications, or supplements, Denies any signs and symptoms of bleeding or bruising or clotting. Bleeding, bruising, clotting discussed Nutritional guidance given Dose: 2.5MG X 2 DAYS / 1.25MG X 5 DAYS F/U INR: 4 WEEKS Patient verbalizes understanding of instructions given Anti-Coag Initial Assessment Social Hx Alcohol intake frequency: does not drink Coding Level of Care Code Est Patient Level 1 Results AMB INR Fingerstick AMB INR Fingerstick 2.9 Last Edit by Lety Yusuf RN on 08/12/23 08:23 manual entry failed expanse interfacing
[2023-08-12 12:08] LABS: Prothrombin Time Whole Bld POC 34.3 sec (11.1-13.5); ~PT, ~INR - Anti Coag Clinic 2.9 (0.9-1.1)
== END 2023-08-12 08:30 | disposition home or self-care (01) ==
LOC: HO.ACS 08:13
PROVIDERS: PCP Internal Medicine; Visit Provider Internal Medicine
DX: Z79.01 Long term (current) use of anticoagulants (principal)

== ENCOUNTER → 2023-08-12 08:13 | Outpatient (BNVA) | payer MEDICARE, SELFPAY | PROVIDERS: PCP Internal Medicine; Visit Provider Internal Medicine | DX: I69.90 Unspecified sequelae of unspecified cerebrovascular disease (principal); Z51.81 Encounter for therapeutic drug level monitoring; Z79.01 Long term (current) use of anticoagulants | CPT/HCPCS: 85610; 99211 ==

== ENCOUNTER 2023-08-26 07:41 | Outpatient (REF) | payer MEDICARE, SELFPAY ==
--- NOTE | ~2023-08-26 | CT_ITS ---
EXAMINATION: CT HEAD WITHOUT CONTRAST CLINICAL INFORMATION: Mild cognitive impairment. COMPARISON: CT head from 05/07/2023. Brain MRI from 07/17/2021. MRA head from 05/26/2017. TECHNIQUE: Contiguous axial imaging was performed from the skull base to vertex without intravenous administration of contrast. This CT examination was performed using dose optimization techniques as appropriate, variously including the following: *Automated exposure control. *Adjustment of mA and/or kV according to patient size (this includes techniques or standardized protocols for targeted exams where dose is matched to indication/reason for exam; i.e. extremities or head). *Use of iterative reconstruction technique. DLP: 767 mGy-cm FINDINGS: There is chronic encephalomalacia within the high left frontal lobe with associated volume loss. Chronic lacunar infarcts within the bilateral cerebral hemispheres. No additional loss of weiner-white matter differentiation. No evidence of acute intracranial hemorrhage. Scattered and partially confluent hypoattenuation in the periventricular and deep white matter are consistent with moderate microangiopathy. Proportional prominence of the ventricles and sulcal spaces without evidence of obstructive hydrocephalus. No abnormal mass effect or midline shift. No extra-axial fluid collections. 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 No acute soft tissue or osseous abnormalities. Prominent prominent opacification of the left sphenoid air cell. Mild mucosal thickening of the remaining paranasal sinuses. Mild rightward nasal septal deviation. Small bilateral mastoid effusions. Bilateral lens extractions. CT/CT head/brain wo IV con IMPRESSION: 1. No evidence of acute intracranial hemorrhage or edematous territorial infarction. 2. 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 Chronic lacunar infarcts of the deep nuclei. Moderate underlying microangiopathy and generalized cerebral volume loss. 3. 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
== END 2023-08-26 07:42 | disposition home or self-care (01) ==
LOC: HO.CT 07:41
PROVIDERS: PCP Internal Medicine; Visit Provider Psychiatry & Neurology Neurology
DX: G31.84 Mild cognitive impairment of uncertain or unknown etiology (principal)
CPT/HCPCS: 70450

== ENCOUNTER 2023-09-09 08:12 | Outpatient (AMB) | payer MEDICARE, SELFPAY ==
--- NOTE | 2023-09-09 08:24 | MHC.OFFVISCO ---
Intake Intake Visit Reasons: Anticoagulation Allergies meloxicam Allergy (Intermediate, Uncoded 09/09/23 08:19) Nausea Medication List - Last Reconciled 09/09/23 by Lizet Macdonald RN ascorbic acid (vitamin C) mg PO aspirin 81 mg PO DAILY atenolol 25 mg PO DAILY atorvastatin 10 mg PO DAILY cholecalciferol (vitamin D3) PO lorazepam 0.5 mg PO DAILY PRN losartan 25 mg PO DAILY [omega 3 pt states 1 cap daily 500mg ] [REDS AND GREENS SUPPLEMENT 1 cap daily of each supplement ] warfarin 2.5 mg See Protocol PO DAILY Nursing Note INR 1.7-?? out of therapeutic range of 2-3 Medications and supplements reviewed Patient status: no c.o , denies missed dose Medications or supplements: no changes Diet: eating same, states lost weight- 10 lbs, may have had more greens Denies any signs and symptoms of bleeding or clotting or unusual bruising Bleeding, bruising, clotting discussed Nutritional guidance given: no greens for 2 days, eat reds to raise Dose: 2.5mg today then cont reg 2.5mg x 2, 1.25mg x 5 F/U INR Date : 2 weeks?? Patient verbalizing understanding of instructions given. Anti-Coag Initial Assessment Social Hx Alcohol intake frequency: does not drink Coding Level of Care Code Est Patient Level 1 Diagnoses Current use of anticoagulant therapy Z79.01 Assessment & Plan Assessment & Plan (1) Current use of anticoagulant therapy: Code(s): Z79.01 - half-way (current) use of anticoagulants Category: Medical
[2023-09-09 08:25] LABS: ~PT, ~INR - Anti Coag Clinic 1.7 (0.9-1.1)
== END 2023-09-09 08:31 | disposition home or self-care (01) ==
LOC: HO.ACS 08:12
PROVIDERS: PCP Internal Medicine; Visit Provider Internal Medicine
DX: Z79.01 Long term (current) use of anticoagulants (principal)

== ENCOUNTER → 2023-09-09 08:12 | Outpatient (BNVA) | payer MEDICARE, SELFPAY | PROVIDERS: PCP Internal Medicine; Visit Provider Internal Medicine | DX: Z86.73 Personal history of transient ischemic attack (TIA), and cerebral infarction without residual deficits (principal); Z79.01 Long term (current) use of anticoagulants; Z51.81 Encounter for therapeutic drug level monitoring | CPT/HCPCS: 85610; 99211 ==

== ENCOUNTER 2023-09-23 08:16 | Outpatient (AMB) | payer MEDICARE, SELFPAY ==
--- NOTE | 2023-09-23 08:26 | MHC.OFFVISCO ---
Intake Intake Visit Reasons: Anticoagulation Allergies meloxicam Allergy (Intermediate, Uncoded 09/23/23 08:20) Nausea Medication List - Last Reconciled 09/23/23 by Lizet Macdonald RN ascorbic acid (vitamin C) mg PO aspirin 81 mg PO DAILY atenolol 25 mg PO DAILY atorvastatin 10 mg PO DAILY cholecalciferol (vitamin D3) PO lorazepam 0.5 mg PO DAILY PRN losartan 25 mg PO DAILY [omega 3 pt states 1 cap daily 500mg ] [REDS AND GREENS SUPPLEMENT 1 cap daily of each supplement ] warfarin 2.5 mg See Protocol PO DAILY Nursing Note INR: 2.7- in therapeutic range of 2-3 Medications and supplements reviewed- no changes taking balance of nature fruits and veg supp- has been taking for few months No changes in health, diet, medications, or supplements, Denies any signs and symptoms of bleeding or bruising or clotting. Bleeding, bruising, clotting discussed Nutritional guidance given Dose: 2.5mg x 2, 1.25mg x 5 F/U INR: pt req 4 week f/u Patient verbalizes understanding of instructions given Anti-Coag Initial Assessment Social Hx Alcohol intake frequency: does not drink Coding Level of Care Code Est Patient Level 1 Diagnoses Current use of anticoagulant therapy Z79.01 Assessment & Plan Assessment & Plan (1) Current use of anticoagulant therapy: Code(s): Z79.01 - jail (current) use of anticoagulants Category: Medical
[2023-09-23 08:27] LABS: Prothrombin Time Whole Bld POC 32.1 sec (11.1-13.5); ~PT, ~INR - Anti Coag Clinic 2.7 (0.9-1.1)
== END 2023-09-23 08:34 | disposition home or self-care (01) ==
LOC: HO.ACS 08:16
PROVIDERS: PCP Internal Medicine; Visit Provider Internal Medicine
DX: Z79.01 Long term (current) use of anticoagulants (principal)

== ENCOUNTER → 2023-09-23 08:16 | Outpatient (BNVA) | payer MEDICARE, SELFPAY | PROVIDERS: PCP Internal Medicine; Visit Provider Internal Medicine | DX: Z86.73 Personal history of transient ischemic attack (TIA), and cerebral infarction without residual deficits (principal); Z79.01 Long term (current) use of anticoagulants; Z51.81 Encounter for therapeutic drug level monitoring | CPT/HCPCS: 85610; 99211 ==

== ENCOUNTER 2023-10-21 08:12 | Outpatient (AMB) | payer MEDICARE, SELFPAY ==
--- NOTE | 2023-10-21 08:27 | MHC.OFFVISCO ---
Intake Intake Visit Reasons: Anticoagulation Allergies meloxicam Allergy (Intermediate, Uncoded 10/21/23 08:21) Nausea Medication List - Last Reconciled 10/21/23 by Lety Yusuf RN ascorbic acid (vitamin C) mg PO aspirin 81 mg PO DAILY atenolol 25 mg PO DAILY atorvastatin 10 mg PO DAILY cholecalciferol (vitamin D3) PO lorazepam 0.5 mg PO DAILY PRN losartan 25 mg PO DAILY [omega 3 pt states 1 cap daily 500mg ] [REDS AND GREENS SUPPLEMENT 1 cap daily of each supplement ] warfarin 2.5 mg See Protocol PO DAILY Nursing Note INR: 2.8 in therapeutic range Medications and supplements reviewed No changes in health, diet, medications, or supplements, Denies any signs and symptoms of bleeding or bruising or clotting. Bleeding, bruising, clotting discussed Nutritional guidance given Dose: 2.5MG X 2 DAYS/ 1.25MG X 5 DAYS F/U INR: 4 WEEKS Patient verbalizes understanding of instructions given Anti-Coag Initial Assessment Social Hx Alcohol intake frequency: does not drink Coding Level of Care Code Est Patient Level 1 Diagnoses Current use of anticoagulant therapy Z79.01 Results AMB INR Fingerstick AMB INR Fingerstick 2.8 Last Edit by Lety Yusuf RN on 10/21/23 08:28 MANUAL ENTRY FAILED INTERFACING Assessment & Plan Assessment & Plan (1) Current use of anticoagulant therapy: Code(s): Z79.01 - nursing home (current) use of anticoagulants Category: Medical
[2023-10-21 08:41] LABS: Prothrombin Time Whole Bld POC 33.1 sec (11.1-13.5); ~PT, ~INR - Anti Coag Clinic 2.8 (0.9-1.1)
== END 2023-10-21 08:32 | disposition home or self-care (01) ==
LOC: HO.ACS 08:12
PROVIDERS: PCP Internal Medicine; Visit Provider Internal Medicine
DX: Z79.01 Long term (current) use of anticoagulants (principal)

== ENCOUNTER → 2023-10-21 08:12 | Outpatient (BNVA) | payer MEDICARE, SELFPAY | PROVIDERS: PCP Internal Medicine; Visit Provider Internal Medicine | DX: Z86.73 Personal history of transient ischemic attack (TIA), and cerebral infarction without residual deficits (principal); Z79.01 Long term (current) use of anticoagulants; Z51.81 Encounter for therapeutic drug level monitoring | CPT/HCPCS: 85610; 99211 ==

== ENCOUNTER 2023-11-18 08:02 | Outpatient (AMB) | payer MEDICARE, SELFPAY ==
--- NOTE | 2023-11-18 08:22 | MHC.OFFVISCO ---
Intake Intake Visit Reasons: Anticoagulation Allergies meloxicam Allergy (Intermediate, Uncoded 11/18/23 08:17) Nausea Medication List - Last Reconciled 11/18/23 by Lizet Macdonald RN ascorbic acid (vitamin C) mg PO aspirin 81 mg PO DAILY atenolol 25 mg PO DAILY atorvastatin 10 mg PO DAILY cholecalciferol (vitamin D3) PO lorazepam 0.5 mg PO DAILY PRN losartan 25 mg PO DAILY [omega 3 pt states 1 cap daily 500mg ] [REDS AND GREENS SUPPLEMENT 1 cap daily of each supplement ] warfarin 2.5 mg See Protocol PO DAILY Nursing Note INR 3.8-?? out of therapeutic range of 2-3 Medications and supplements reviewed Patient status: no c.o Medications or supplements: no changes Diet: appetite is good, having raisins and amparo and celery Denies any signs and symptoms of bleeding or clotting or unusual bruising Bleeding, bruising, clotting discussed - occ small bruise Nutritional guidance given: eat dark cooked greens to lower inr Dose: hold dose today then cont 1.25mg x 5 , 2.5mg x 2 F/U INR Date : 2 weeks?? Patient verbalizing understanding of instructions given. 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
[2023-11-18 08:23] LABS: Prothrombin Time Whole Bld POC 45.3 sec (11.1-13.5); ~PT, ~INR - Anti Coag Clinic 3.8 (0.9-1.1)
== END 2023-11-18 08:27 | disposition home or self-care (01) ==
LOC: HO.ACS 08:02
PROVIDERS: PCP Internal Medicine; Visit Provider Internal Medicine
DX: Z79.01 Long term (current) use of anticoagulants (principal)

== ENCOUNTER → 2023-11-18 08:02 | Outpatient (BNVA) | payer MEDICARE, SELFPAY | PROVIDERS: PCP Internal Medicine; Visit Provider Internal Medicine | DX: Z86.73 Personal history of transient ischemic attack (TIA), and cerebral infarction without residual deficits (principal); Z79.01 Long term (current) use of anticoagulants; Z51.81 Encounter for therapeutic drug level monitoring | CPT/HCPCS: 85610; 99211 ==

== ENCOUNTER 2023-12-02 08:17 | Outpatient (AMB) | payer MEDICARE, SELFPAY ==
[2023-12-02 08:30] LABS: Prothrombin Time Whole Bld POC 40.9 sec (11.1-13.5); ~PT, ~INR - Anti Coag Clinic 3.4 (0.9-1.1)
--- NOTE | 2023-12-02 08:46 | MHC.OFFVISCO ---
Intake Intake Visit Reasons: Anticoagulation Allergies meloxicam Allergy (Intermediate, Uncoded 11/18/23 08:17) Nausea Medication List - Last Reconciled 12/02/23 by Lety Yusuf RN ascorbic acid (vitamin C) mg PO aspirin 81 mg PO DAILY atenolol 25 mg PO DAILY atorvastatin 10 mg PO DAILY cholecalciferol (vitamin D3) PO lorazepam 0.5 mg PO DAILY PRN losartan 25 mg PO DAILY [omega 3 pt states 1 cap daily 500mg ] [REDS AND GREENS SUPPLEMENT 1 cap daily of each supplement ] warfarin 2.5 mg See Protocol PO DAILY Nursing Note INR: 3.4 out in therapeutic range Medications and supplements reviewed No changes in health, diet, or supplements, Pt had dragon fruit few days ago, plus taking little more tylenol, aching more than usual - enc to call MD Denies any signs and symptoms of bleeding or bruising or clotting. Bleeding, bruising, clotting discussed Nutritional guidance given Dose: hold today, 2.5mg x 2 days/ 1.25mg x 5 days F/U INR: 2 weeks Patient verbalizes understanding of instructions given Anti-Coag Initial Assessment Social Hx Alcohol intake frequency: does not drink Coding Level of Care Code Est Patient Level 1 Diagnoses Current use of anticoagulant therapy Z79.01 Assessment & Plan Assessment & Plan (1) Current use of anticoagulant therapy: Code(s): Z79.01 - skilled nursing (current) use of anticoagulants Category: Medical
== END 2023-12-02 08:50 | disposition home or self-care (01) ==
LOC: HO.ACS 08:17
PROVIDERS: PCP Internal Medicine; Visit Provider Internal Medicine
DX: Z79.01 Long term (current) use of anticoagulants (principal)

== ENCOUNTER → 2023-12-02 08:17 | Outpatient (BNVA) | payer MEDICARE, SELFPAY | PROVIDERS: PCP Internal Medicine; Visit Provider Internal Medicine | DX: Z86.73 Personal history of transient ischemic attack (TIA), and cerebral infarction without residual deficits (principal); Z79.01 Long term (current) use of anticoagulants; Z51.81 Encounter for therapeutic drug level monitoring | CPT/HCPCS: 85610; 99211 ==

== ENCOUNTER 2023-12-16 08:02 | Outpatient (AMB) | payer MEDICARE, SELFPAY ==
[2023-12-16 08:12] LABS: Prothrombin Time Whole Bld POC 33.7 sec (11.1-13.5); ~PT, ~INR - Anti Coag Clinic 2.8 (0.9-1.1)
--- NOTE | 2023-12-16 08:19 | MHC.OFFVISCO ---
Intake Intake Visit Reasons: Anticoagulation Allergies meloxicam Allergy (Intermediate, Uncoded 12/16/23 08:07) Nausea Medication List - Last Reconciled 12/16/23 by Macarena Faust, RN ascorbic acid (vitamin C) mg PO aspirin 81 mg PO DAILY atenolol 25 mg PO DAILY atorvastatin 10 mg PO DAILY cholecalciferol (vitamin D3) PO lorazepam 0.5 mg PO DAILY PRN losartan 25 mg PO DAILY [omega 3 pt states 1 cap daily 500mg ] [REDS AND GREENS SUPPLEMENT 1 cap daily of each supplement ] warfarin 2.5 mg See Protocol PO DAILY Nursing Note PT.HAS STOPPED THE STATIN AND THE MYALGIAS HAVE CEASED PT.STATES. ONLY HAS TYLENOL X1 DAILY NOW. NO CP,SOB,FALLS OR SX OF BLEEDING. CONTINUE PREDSENTY DOSE AND FOLLOW-UP IN 4 WEEKS. GOOD UNDERSTANDING OF DOSING INSTR. Anti-Coag Initial Assessment Social Hx Alcohol intake frequency: does not drink Coding Level of Care Code Est Patient Level 1 Diagnoses Current use of anticoagulant therapy Z79.01 Assessment & Plan Assessment & Plan (1) Current use of anticoagulant therapy: Code(s): Z79.01 - snf (current) use of anticoagulants Category: Medical
== END 2023-12-16 08:23 | disposition home or self-care (01) ==
LOC: HO.ACS 08:02
PROVIDERS: PCP Internal Medicine; Visit Provider Internal Medicine
DX: Z79.01 Long term (current) use of anticoagulants (principal)

== ENCOUNTER → 2023-12-16 08:02 | Outpatient (BNVA) | payer MEDICARE, SELFPAY | PROVIDERS: PCP Internal Medicine; Visit Provider Internal Medicine | DX: Z86.73 Personal history of transient ischemic attack (TIA), and cerebral infarction without residual deficits (principal); Z79.01 Long term (current) use of anticoagulants; Z51.81 Encounter for therapeutic drug level monitoring | CPT/HCPCS: 85610; 99211 ==

== ENCOUNTER 2024-01-15 07:59 | Outpatient (REF) | payer MEDICARE, SELFPAY ==
--- NOTE | ~2024-01-15 | XR_ITS ---
EXAMINATION: XR CHEST CLINICAL INFORMATION: Cough COMPARISON: None available. TECHNIQUE: 2 views of the chest were obtained. FINDINGS: The cardiac and mediastinal contours are unremarkable. There is mitral annular calcification. The lungs are clear. No pleural effusion or pneumothorax. Degenerative changes of the spine and curvature of the lumbar spine to the left. XR/XR chest 2V IMPRESSION: No evidence for acute disease in the chest.
== END 2024-01-15 08:00 | disposition home or self-care (01) ==
LOC: HO.XRAY 07:59
PROVIDERS: Visit Provider Internal Medicine
DX: R05.1 Acute cough (principal); Z86.73 Personal history of transient ischemic attack (TIA), and cerebral infarction without residual deficits; Z51.81 Encounter for therapeutic drug level monitoring; Z79.01 Long term (current) use of anticoagulants
CPT/HCPCS: 71046; 85610; 99211

== ENCOUNTER 2024-01-15 08:30 | Outpatient (AMB) | payer MEDICARE, SELFPAY ==
[2024-01-15 08:52] LABS: Prothrombin Time Whole Bld POC 21.8 sec (11.1-13.5); ~PT, ~INR - Anti Coag Clinic 1.8 (0.9-1.1)
--- NOTE | 2024-01-15 08:52 | MHC.OFFVISCO ---
Intake Intake Visit Reasons: Anticoagulation Allergies meloxicam Allergy (Intermediate, Uncoded 01/15/24 08:32) Nausea Medication List - Last Reconciled 01/15/24 by Lizet Macdonald RN ascorbic acid (vitamin C) mg PO aspirin 81 mg PO DAILY atenolol 25 mg PO DAILY atorvastatin 10 mg PO DAILY cefuroxime axetil 500 mg PO BID cholecalciferol (vitamin D3) PO lorazepam 0.5 mg PO DAILY PRN losartan 25 mg PO DAILY [omega 3 pt states 1 cap daily 500mg ] [REDS AND GREENS SUPPLEMENT 1 cap daily of each supplement ] warfarin 2.5 mg See Protocol PO DAILY Nursing Note INR 1.8-?? out of therapeutic range of 2-3 Medications and supplements reviewed Patient status: pt with c.o congestion, cough, hoarseness, saw pcp and on antibiotics and mucinex cough productive- green phlegm, had cxr today, pt instructed to call pcp if green phlegm cont pt taking veg and fruit supplements for months Medications or supplements: ceftin 500mg bid x 7 days, started tu. mucinex sinus atorvastatin d/c, rosuvastatin prescribed but pt not taking yet- aware will raise inr Diet: appetite improving Denies any signs and symptoms of bleeding or clotting or unusual bruising Bleeding, bruising, clotting discussed Nutritional guidance given: no greens for 2-3 days, eat reds to raise Dose: 2.5mg today then cont reg 2.5mg x 2, 1.25mg x 5 F/U INR Date : 1 week? Patient verbalizing understanding of instructions given. 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
== END 2024-01-15 09:24 | disposition home or self-care (01) ==
LOC: HO.ACS 08:30
PROVIDERS: PCP Internal Medicine; Visit Provider Internal Medicine
DX: Z79.01 Long term (current) use of anticoagulants (principal)

== ENCOUNTER 2024-01-25 09:04 | Outpatient (AMB) | payer MEDICARE, SELFPAY ==
--- NOTE | 2024-01-25 09:17 | MHC.OFFVISCO ---
Intake Intake Visit Reasons: Anticoagulation Allergies meloxicam Allergy (Intermediate, Uncoded 01/25/24 09:12) Nausea Medication List - Last Reconciled 01/25/24 by Lizet Macdonald, RN ascorbic acid (vitamin C) mg PO DAILY aspirin 81 mg PO DAILY atenolol 25 mg PO DAILY cholecalciferol (vitamin D3) PO DAILY fluticasone propionate 50 mcg/actuation 1 spray intranasal DAILY PRN lorazepam 0.5 mg PO DAILY PRN losartan 25 mg PO DAILY [omega 3 pt states 1 cap daily 500mg ] [id number] 5-325-200 mg (Mucinex Sinus-Max Severe Congestion Relief) 2 tabs PO Q4-6H PRN [REDS AND GREENS SUPPLEMENT 1 cap daily of each supplement ] rosuvastatin 5 mg PO DAILY warfarin 2.5 mg See Protocol PO DAILY Nursing Note INR 1.7-? out of therapeutic range of 2-3 Medications and supplements reviewed Patient status: pt has been ill with increased phlegm- had cxr last week which she states was neg, phlegm clear- yellow, enc to notify pcp - has seen pcp Medications or supplements: finished ceftin last week, taking fruit and veg supp Diet: appetite improved Denies any signs and symptoms of bleeding or clotting or unusual bruising Bleeding, bruising, clotting discussed Nutritional guidance given: no greens for 2-3 days, eat reds to raise Dose: pt vague on dosing thursday, unsure if missed dose, take 2.5mg today and tomm then cont 2.5mg x 2, 1.25mg x 5 F/U INR Date : one week? Patient verbalizing understanding of instructions given. 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
[2024-01-25 09:18] LABS: Prothrombin Time Whole Bld POC 19.9 sec (11.1-13.5); ~PT, ~INR - Anti Coag Clinic 1.7 (0.9-1.1)
== END 2024-01-25 09:28 | disposition home or self-care (01) ==
LOC: HO.ACS 09:04
PROVIDERS: PCP Internal Medicine; Visit Provider Internal Medicine
DX: Z79.01 Long term (current) use of anticoagulants (principal)

== ENCOUNTER → 2024-01-25 09:04 | Outpatient (BNVA) | payer MEDICARE, SELFPAY | PROVIDERS: PCP Internal Medicine; Visit Provider Internal Medicine | DX: Z86.73 Personal history of transient ischemic attack (TIA), and cerebral infarction without residual deficits (principal); Z51.81 Encounter for therapeutic drug level monitoring; Z79.01 Long term (current) use of anticoagulants | CPT/HCPCS: 85610; 99211 ==

== ENCOUNTER 2024-02-01 08:50 | Outpatient (AMB) | payer MEDICARE, SELFPAY ==
--- NOTE | 2024-02-01 09:07 | MHC.OFFVISCO ---
Intake Intake Visit Reasons: Anticoagulation Allergies meloxicam Allergy (Intermediate, Uncoded 02/01/24 08:53) Nausea Medication List - Last Reconciled 02/01/24 by Bev Laws RN ascorbic acid (vitamin C) mg PO DAILY aspirin 81 mg PO DAILY atenolol 25 mg PO DAILY cholecalciferol (vitamin D3) PO DAILY fluticasone propionate 50 mcg/actuation 1 spray intranasal DAILY PRN lorazepam 0.5 mg PO DAILY PRN losartan 25 mg PO DAILY [omega 3 pt states 1 cap daily 500mg ] bxveriksowkxn-[id number] 5-325-200 mg (Mucinex Sinus-Max Severe Congestion Relief) 2 tabs PO Q4-6H PRN [REDS AND GREENS SUPPLEMENT 1 cap daily of each supplement ] rosuvastatin 5 mg PO DAILY warfarin 2.5 mg See Protocol PO DAILY Nursing Note INR: 2.3 in therapeutic range of 2-3 Medications and supplements reviewed: started Rosuvastatin 01/31/24 No changes in health, diet, medications, or supplements, Denies any signs and symptoms of bleeding or bruising or clotting. Bleeding, bruising, clotting discussed Nutritional guidance given to add greens each day 3-5 days after starting the new med Dose: 2.5mg X 2 days and 1.25mg X5 days F/U INR: 1 week Patient verbalizes understanding of instructions given Anti-Coag Initial Assessment Social Hx Alcohol intake frequency: does not drink Coding Level of Care Code Est Patient Level 1 Diagnoses Current use of anticoagulant therapy Z79.01 Results AMB INR Fingerstick AMB INR Fingerstick 2.3 Last Edit by Bev Laws RN on 02/01/24 09:09 interface delay AMB INR Fingerstick AMB INR Fingerstick 2.3 Last Edit by Bev Laws RN on 02/01/24 09:10 interface delay Assessment & Plan Assessment & Plan (1) Current use of anticoagulant therapy: Code(s): Z79.01 - [facility] (current) use of anticoagulants Category: Medical
[2024-02-01 09:08] LABS: Prothrombin Time Whole Bld POC 27.4 sec (11.1-13.5); ~PT, ~INR - Anti Coag Clinic 2.3 (0.9-1.1)
== END 2024-02-01 09:30 | disposition home or self-care (01) ==
LOC: HO.ACS 08:50
PROVIDERS: PCP Internal Medicine; Visit Provider Internal Medicine
DX: Z79.01 Long term (current) use of anticoagulants (principal)

== ENCOUNTER → 2024-02-01 08:50 | Outpatient (BNVA) | payer MEDICARE, SELFPAY | PROVIDERS: PCP Internal Medicine; Visit Provider Internal Medicine | DX: Z86.73 Personal history of transient ischemic attack (TIA), and cerebral infarction without residual deficits (principal); Z79.01 Long term (current) use of anticoagulants; Z51.81 Encounter for therapeutic drug level monitoring | CPT/HCPCS: 85610; 99211 ==

== ENCOUNTER → 2024-02-08 08:53 | Outpatient (BNVA) | payer MEDICARE, SELFPAY | PROVIDERS: PCP Internal Medicine; Visit Provider Internal Medicine | DX: Z86.73 Personal history of transient ischemic attack (TIA), and cerebral infarction without residual deficits (principal); Z51.81 Encounter for therapeutic drug level monitoring; Z79.01 Long term (current) use of anticoagulants | CPT/HCPCS: 85610; 99211 ==

== ENCOUNTER → 2024-02-16 14:00 | Outpatient (BNVA) | payer MEDICARE, SELFPAY | PROVIDERS: PCP Internal Medicine; Visit Provider Internal Medicine ==

== ENCOUNTER 2024-02-19 08:42 | Outpatient (AMB) | payer MEDICARE, SELFPAY ==
[2024-02-19 09:01] LABS: Prothrombin Time Whole Bld POC 39.6 sec (11.1-13.5); ~PT, ~INR - Anti Coag Clinic 3.3 (0.9-1.1)
--- NOTE | 2024-02-19 09:10 | MHC.OFFVISCO ---
Intake Intake Visit Reasons: Anticoagulation Allergies meloxicam Allergy (Intermediate, Uncoded 02/19/24 08:55) Nausea Medication List - Last Reconciled 02/19/24 by Bev Alcazar, RN ascorbic acid (vitamin C) mg PO DAILY aspirin 81 mg PO DAILY atenolol 25 mg PO DAILY cefuroxime axetil 500 mg PO BID cholecalciferol (vitamin D3) PO DAILY fluticasone propionate 50 mcg/actuation 1 spray intranasal DAILY PRN lorazepam 0.5 mg PO DAILY PRN losartan 25 mg PO DAILY [omega 3 pt states 1 cap daily 500mg ] qiestdvhxruuc-udxxkhkjtqgsd-CQ 5-325-200 mg (Mucinex Sinus-Max Severe Congestion Relief) 2 tabs PO Q4-6H PRN [REDS AND GREENS SUPPLEMENT 1 cap daily of each supplement ] rosuvastatin 5 mg PO DAILY warfarin 2.5 mg See Protocol PO DAILY Nursing Note amb to [facility] using cane, feeling well Medications and supplements reviewed,pt will be completing cefuroxime tomorrow (no warfarin interferance) pt has started rosuvastatin this month- potential for INR increase, sts she had stopped her greens and reds supplement but started back on it after last visit sts she takes 1 green and 1 red supplement pt indicates that she has been increasing her tylenol last few days due to bilat knee pain No other changes in health, diet, medications, or supplements, Denies any unusual signs and symptoms of bleeding, bruising, or clotting. INR 3.3 above therapeutic range, maybe start of rise due to rosuvastatin or increased tylenol use will keep on same dosing for now 2.5mg x 2 days and 1.25mg x 5 days Nutritional guidance given increase greens over weekend and when taking more than usual amounts of tylenol F/U INR: Friday 03/02, if continued elevation may need weekly dose decrease Patient verbalizes understanding of instructions given Anti-Coag Initial Assessment Social Hx Alcohol intake frequency: does not drink Questionnaires HAS-BLED Does the patient had uncontrolled Hypertension?: No Does the patient have renal disease?: No Does the patient have liver disease?: No Does the patient have a history of stroke?: Yes Has the patient had major bleeding or predisposition to bleeding?: Yes Does the patient have labile INRs?: Yes Is the patient over 65 years of age?: Yes Is the patient on medications that gives them a predisposition to bleeding?: Yes Does the patient use alcohol?: No HAS-BLED Score: 5 CHADSVASC Age: 75 or over Gender: Female Does the patient have a history of CHF?: No Does the patient have a history of Hypertension?: Yes Does the patient have a history of Stroke/TIA/Thromboembolism?: Yes Does the patient have a history of Vascular Disease (prior [place], PAD or aortic plaque)?: Yes Does the patient have a history of Diabetes?: Yes CHADS VACS Score: 8 Sheng Prediction Score Rsk VTE Active Cancer: No Previous VTE, excluding superficial vein thrombosis: No Reduced mobility: No Already known Thrombophilic Condition: Yes With-in last month Trauma and/or Surgery: No Elderly 70 year or older: Yes Heart and/or Respiratory Failure: No Acute Myocardial infarction and/or Ischemic Stroke: Yes Acute Infection and/or Rheumatologic Disorder: No Obesity (BMI 30 or greater): No Ongoing Hormonal Treatment: No Score: 5 Sheng Score less than 4; Low Risk of VTE Sheng Score 4 or greater; High Risk of VTE Coding Level of Care Code Est Patient Level 1 Diagnoses Current use of anticoagulant therapy Z79.01 Time Spent (min) 15 Assessment & Plan Assessment & Plan (1) Current use of anticoagulant therapy: Code(s): 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
== END 2024-02-19 09:39 | disposition home or self-care (01) ==
LOC: HO.ACS 08:42
PROVIDERS: PCP Internal Medicine; Visit Provider Internal Medicine
DX: Z79.01 Long term (current) use of anticoagulants (principal)

== ENCOUNTER → 2024-02-19 08:42 | Outpatient (BNVA) | payer MEDICARE, SELFPAY | PROVIDERS: PCP Internal Medicine; Visit Provider Internal Medicine | DX: Z86.73 Personal history of transient ischemic attack (TIA), and cerebral infarction without residual deficits (principal); Z79.01 Long term (current) use of anticoagulants; Z51.81 Encounter for therapeutic drug level monitoring | CPT/HCPCS: 85610; 99211 ==

== ENCOUNTER 2024-03-02 08:56 | Outpatient (AMB) | payer MEDICARE, SELFPAY ==
[2024-03-02 09:04] LABS: Prothrombin Time Whole Bld POC 37.7 sec (11.1-13.5); ~PT, ~INR - Anti Coag Clinic 3.1 (0.9-1.1)
--- NOTE | 2024-03-02 09:16 | MHC.OFFVISCO ---
Intake Intake Visit Reasons: Anticoagulation Allergies meloxicam Allergy (Intermediate, Uncoded 03/02/24 08:59) Nausea Medication List - Last Reconciled 03/02/24 by Macarena Faust, RN ascorbic acid (vitamin C) mg PO DAILY aspirin 81 mg PO DAILY atenolol 25 mg PO DAILY cefuroxime axetil 500 mg PO BID cholecalciferol (vitamin D3) PO DAILY fluticasone propionate 50 mcg/actuation 1 spray intranasal DAILY PRN lorazepam 0.5 mg PO DAILY PRN losartan 25 mg PO DAILY [omega 3 pt states 1 cap daily 500mg ] bpvddlaemcfsc-ziymkignlznol-SF 5-325-200 mg (Mucinex Sinus-Max Severe Congestion Relief) 2 tabs PO Q4-6H PRN [REDS AND GREENS SUPPLEMENT 1 cap daily of each supplement ] rosuvastatin 5 mg PO DAILY warfarin 2.5 mg See Protocol PO DAILY Nursing Note PT.STATES THAT SHE CONTINUES TO NEED TYLENOL BID. WILL LOWER WEEKLY DOSE SLIGHTLY AND FOLLOW-UP IN 3 WEEKS. WILL BE SURE TO HAVE GREENS TODAY AND 2-3X WEEKLY. 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 PT.DENIES ANY CP,SOB OR SX OF BLEEDING. GOOD UNDERSTANDING OF DOSING INSTR. 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
== END 2024-03-02 09:20 | disposition home or self-care (01) ==
LOC: HO.ACS 08:56
PROVIDERS: PCP Internal Medicine; Visit Provider Internal Medicine
DX: Z79.01 Long term (current) use of anticoagulants (principal)

== ENCOUNTER → 2024-03-02 08:56 | Outpatient (BNVA) | payer MEDICARE, SELFPAY | PROVIDERS: PCP Internal Medicine; Visit Provider Internal Medicine | DX: Z86.73 Personal history of transient ischemic attack (TIA), and cerebral infarction without residual deficits (principal); Z79.01 Long term (current) use of anticoagulants; Z51.81 Encounter for therapeutic drug level monitoring | CPT/HCPCS: 85610; 99211 ==

== ENCOUNTER 2024-03-23 08:39 | Outpatient (AMB) | payer MEDICARE, SELFPAY ==
--- NOTE | 2024-03-23 08:54 | MHC.OFFVISCO ---
Intake Intake Visit Reasons: Anticoagulation Allergies rosuvastatin Adverse Reaction (Intermediate, Verified 03/23/24 08:47) Weakness meloxicam Allergy (Intermediate, Uncoded 03/23/24 08:44) Nausea Medication List - Last Reconciled 03/23/24 by Lizet Macdonald, RN ascorbic acid (vitamin C) mg PO DAILY aspirin 81 mg PO DAILY atenolol 25 mg PO DAILY cholecalciferol (vitamin D3) PO DAILY fluticasone propionate 50 mcg/actuation 1 spray intranasal DAILY PRN lorazepam 0.5 mg PO DAILY PRN losartan 25 mg PO DAILY [omega 3 pt states 1 cap daily 500mg ] eejkmokaazdbo-qnvipyqparvxe-TS 5-325-200 mg (Mucinex Sinus-Max Severe Congestion Relief) 2 tabs PO Q4-6H PRN [REDS AND GREENS SUPPLEMENT 1 cap daily of each supplement ] warfarin 2.5 mg See Protocol PO DAILY Nursing Note INR: 2.9- in therapeutic range of 2-3 Medications and supplements reviewe pt states rosuvastatin was d/c by pcp due to pt c.o weakness pt aware this med raises inr, so d/c may lower inr No changes in health, diet, medications, or supplements, Denies any signs and symptoms of bleeding or bruising or clotting. Bleeding, bruising, clotting discussed Nutritional guidance given Dose: 2.5mg x 1. 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
[2024-03-23 08:55] LABS: Prothrombin Time Whole Bld POC 35.3 sec (11.1-13.5); ~PT, ~INR - Anti Coag Clinic 2.9 (0.9-1.1)
== END 2024-03-23 09:00 | disposition home or self-care (01) ==
LOC: HO.ACS 08:39
PROVIDERS: PCP Internal Medicine; Visit Provider Internal Medicine
DX: Z79.01 Long term (current) use of anticoagulants (principal)

== ENCOUNTER → 2024-03-23 08:39 | Outpatient (BNVA) | payer MEDICARE, SELFPAY | PROVIDERS: PCP Internal Medicine; Visit Provider Internal Medicine | DX: Z86.73 Personal history of transient ischemic attack (TIA), and cerebral infarction without residual deficits (principal); Z51.81 Encounter for therapeutic drug level monitoring; Z79.01 Long term (current) use of anticoagulants | CPT/HCPCS: 85610; 99211 ==

== ENCOUNTER 2024-04-13 08:19 | Outpatient (AMB) | payer MEDICARE, SELFPAY ==
--- NOTE | 2024-04-13 08:38 | MHC.OFFVISCO ---
Intake Intake Visit Reasons: Anticoagulation Allergies rosuvastatin Adverse Reaction (Intermediate, Verified 04/13/24 08:33) Weakness meloxicam Allergy (Intermediate, Uncoded 04/13/24 08:33) Nausea Medication List - Last Reconciled 04/13/24 by Lizet Macdonald, RN ascorbic acid (vitamin C) mg PO DAILY aspirin 81 mg PO DAILY atenolol 25 mg PO DAILY cholecalciferol (vitamin D3) PO DAILY fluticasone propionate 50 mcg/actuation 1 spray intranasal DAILY PRN lorazepam 0.5 mg PO DAILY PRN losartan 25 mg PO DAILY [omega 3 pt states 1 cap daily 500mg ] hafdycopxszjn-tpbprohbfvuqf-DW 5-325-200 mg (Mucinex Sinus-Max Severe Congestion Relief) 2 tabs PO Q4-6H PRN [REDS AND GREENS SUPPLEMENT 1 cap daily of each supplement ] warfarin 2.5 mg See Protocol PO DAILY Nursing Note INR: 2.6- in therapeutic range of 2-3 Medications and supplements reviewed No changes in health, diet, medications, or supplements, Denies any signs and symptoms of bleeding or bruising or clotting. 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
[2024-04-13 08:39] LABS: Prothrombin Time Whole Bld POC 31.4 sec (11.1-13.5); ~PT, ~INR - Anti Coag Clinic 2.6 (0.9-1.1)
== END 2024-04-13 08:54 | disposition home or self-care (01) ==
LOC: HO.ACS 08:19
PROVIDERS: PCP Internal Medicine; Visit Provider Internal Medicine
DX: Z79.01 Long term (current) use of anticoagulants (principal)

== ENCOUNTER → 2024-04-13 08:19 | Outpatient (BNVA) | payer MEDICARE, SELFPAY | PROVIDERS: PCP Internal Medicine; Visit Provider Internal Medicine | DX: Z86.73 Personal history of transient ischemic attack (TIA), and cerebral infarction without residual deficits (principal); Z79.01 Long term (current) use of anticoagulants; Z51.81 Encounter for therapeutic drug level monitoring | CPT/HCPCS: 85610; 99211 ==

== ENCOUNTER 2024-05-11 08:27 | Outpatient (AMB) | payer MEDICARE, SELFPAY ==
--- NOTE | 2024-05-11 08:42 | MHC.OFFVISCO ---
Intake Intake Visit Reasons: Anticoagulation Allergies rosuvastatin Adverse Reaction (Intermediate, Verified 05/11/24 08:37) Weakness meloxicam Allergy (Intermediate, Uncoded 05/11/24 08:37) Nausea Medication List - Last Reconciled 05/11/24 by Lizet Macdonald, RN ascorbic acid (vitamin C) mg PO DAILY aspirin 81 mg PO DAILY atenolol 25 mg PO DAILY cholecalciferol (vitamin D3) PO DAILY fluticasone propionate 50 mcg/actuation 1 spray intranasal DAILY PRN lorazepam 0.5 mg PO DAILY PRN losartan 25 mg PO DAILY [omega 3 pt states 1 cap daily 500mg ] qnlskhdebdzrs-ftlucnaqolqms-PA 5-325-200 mg (Mucinex Sinus-Max Severe Congestion Relief) 2 tabs PO Q4-6H PRN [REDS AND GREENS SUPPLEMENT 1 cap daily of each supplement ] warfarin 2.5 mg See Protocol PO DAILY Nursing Note INR: 2.4- in therapeutic range of 2-3 Medications and supplements reviewed- no changes No changes in health, diet, medications, or supplements, Denies any signs and symptoms of bleeding or bruising or clotting. Bleeding, bruising, clotting discussed Nutritional guidance given Dose: 2.5mg x 1. 1.25mg x 6 F/U INR: 4 weeks Patient verbalizes understanding of instructions given Anti-Coag Initial Assessment Social Hx Alcohol intake frequency: does not drink Coding Level of Care Code Est Patient Level 1 Diagnoses Current use of anticoagulant therapy Z79.01 Assessment & Plan Assessment & Plan (1) Current use of anticoagulant therapy: Code(s): Z79.01 - [facility] (current) use of anticoagulants Category: Medical
[2024-05-11 08:43] LABS: ~PT, ~INR - Anti Coag Clinic 2.4 (0.9-1.1)
== END 2024-05-11 09:24 | disposition home or self-care (01) ==
LOC: HO.ACS 08:27
PROVIDERS: PCP Internal Medicine; Visit Provider Internal Medicine
DX: Z79.01 Long term (current) use of anticoagulants (principal)

== ENCOUNTER → 2024-05-11 08:27 | Outpatient (BNVA) | payer MEDICARE, SELFPAY | PROVIDERS: PCP Internal Medicine; Visit Provider Internal Medicine | DX: Z79.01 Long term (current) use of anticoagulants (principal); Z51.81 Encounter for therapeutic drug level monitoring | CPT/HCPCS: 85610; 99211 ==

== ENCOUNTER 2024-06-08 08:21 | Outpatient (AMB) | payer MEDICARE, SELFPAY ==
--- NOTE | 2024-06-08 08:37 | MHC.OFFVISCO ---
Intake Intake Visit Reasons: Anticoagulation Allergies rosuvastatin Adverse Reaction (Intermediate, Verified 06/08/24 08:31) Weakness meloxicam Allergy (Intermediate, Uncoded 06/08/24 08:31) Nausea Medication List - Last Reconciled 06/08/24 by Lizet Macdonald, RN ascorbic acid (vitamin C) mg PO DAILY aspirin 81 mg PO DAILY atenolol 25 mg PO DAILY cholecalciferol (vitamin D3) PO DAILY fluticasone propionate 50 mcg/actuation 1 spray intranasal DAILY PRN lorazepam 0.5 mg PO DAILY PRN losartan 25 mg PO DAILY [omega 3 pt states 1 cap daily 500mg ] zjhrpequnrnzy-nbqgyabwtxtvx-IE 5-325-200 mg (Mucinex Sinus-Max Severe Congestion Relief) 2 tabs PO Q4-6H PRN [REDS AND GREENS SUPPLEMENT 1 cap daily of each supplement ] warfarin 2.5 mg See Protocol PO DAILY Nursing Note INR: 2.9- in therapeutic range of 2-3 Medications and supplements reviewed- no changes No changes in health, diet, medications, or supplements, Denies any signs and symptoms of bleeding or bruising or clotting. Bleeding, bruising, clotting discussed Nutritional guidance given Dose: 2.5mg x 1. 1.25mg x 6 F/U INR: 4 weeks Patient verbalizes understanding of instructions given Anti-Coag Initial Assessment Social Hx Alcohol intake frequency: does not drink Coding Level of Care Code Est Patient Level 1 Diagnoses Current use of anticoagulant therapy Z79.01 Assessment & Plan Assessment & Plan (1) Current use of anticoagulant therapy: Code(s): Z79.01 - half-way (current) use of anticoagulants Category: Medical
[2024-06-08 08:39] LABS: Prothrombin Time Whole Bld POC 34.3 sec (11.1-13.5); ~PT, ~INR - Anti Coag Clinic 2.9 (0.9-1.1)
== END 2024-06-08 08:46 | disposition home or self-care (01) ==
LOC: HO.ACS 08:21
PROVIDERS: PCP Internal Medicine; Visit Provider Internal Medicine
DX: Z79.01 Long term (current) use of anticoagulants (principal)

== ENCOUNTER → 2024-06-08 08:21 | Outpatient (BNVA) | payer MEDICARE, SELFPAY | PROVIDERS: PCP Internal Medicine; Visit Provider Internal Medicine | DX: Z86.73 Personal history of transient ischemic attack (TIA), and cerebral infarction without residual deficits (principal); Z79.01 Long term (current) use of anticoagulants; Z51.81 Encounter for therapeutic drug level monitoring | CPT/HCPCS: 85610; 99211 ==

== ENCOUNTER 2024-07-15 08:36 | Outpatient (AMB) | payer MEDICARE, SELFPAY ==
[2024-07-15 08:47] LABS: Prothrombin Time Whole Bld POC 22.4 sec (11.1-13.5); ~PT, ~INR - Anti Coag Clinic 1.9 (0.9-1.1)
--- NOTE | 2024-07-15 08:55 | MHC.OFFVISCO ---
Intake Intake Visit Reasons: Anticoagulation Allergies rosuvastatin Adverse Reaction (Intermediate, Verified 07/15/24 08:42) Weakness meloxicam Allergy (Intermediate, Uncoded 06/08/24 08:31) Nausea Medication List - Last Reconciled 07/15/24 by Macarena Faust, RN ascorbic acid (vitamin C) mg PO DAILY aspirin 81 mg PO DAILY atenolol 25 mg PO DAILY cholecalciferol (vitamin D3) PO DAILY fluticasone propionate 50 mcg/actuation 1 spray intranasal DAILY PRN lorazepam 0.5 mg PO DAILY PRN losartan 25 mg PO DAILY [omega 3 pt states 1 cap daily 500mg ] qfwhwshkcyvmh-wbmnzwcrhrven-HJ 5-325-200 mg (Mucinex Sinus-Max Severe Congestion Relief) 2 tabs PO Q4-6H PRN [REDS AND GREENS SUPPLEMENT 1 cap daily of each supplement ] warfarin 2.5 mg See Protocol PO DAILY Nursing Note NO CP,SOB,DIET/MED CHANGES,FALLS OR SX OF BLEEDING. BOOST TO 2.5MGM TODAY THEN RESUME USUAL DOSE AND FOLLOW-UP IN 4 WEEKS. GOOD UNDERSTANDING OF DOSING INSTR. 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
== END 2024-07-15 08:57 | disposition home or self-care (01) ==
LOC: HO.ACS 08:36
PROVIDERS: PCP Internal Medicine; Visit Provider Internal Medicine
DX: Z79.01 Long term (current) use of anticoagulants (principal)

== ENCOUNTER → 2024-07-15 08:36 | Outpatient (BNVA) | payer MEDICARE, SELFPAY | PROVIDERS: PCP Internal Medicine; Visit Provider Internal Medicine | DX: Z86.73 Personal history of transient ischemic attack (TIA), and cerebral infarction without residual deficits (principal); Z79.01 Long term (current) use of anticoagulants; Z51.81 Encounter for therapeutic drug level monitoring | CPT/HCPCS: 85610; 99211 ==

== ENCOUNTER 2024-08-12 08:40 | Outpatient (AMB) | payer MEDICARE, SELFPAY ==
[2024-08-12 08:54] LABS: Prothrombin Time Whole Bld POC 25.3 sec (11.1-13.5); ~PT, ~INR - Anti Coag Clinic 2.1 (0.9-1.1)
--- NOTE | 2024-08-12 09:01 | MHC.OFFVISCO ---
Intake Intake Visit Reasons: Anticoagulation Allergies rosuvastatin Adverse Reaction (Intermediate, Verified 08/12/24 08:46) Weakness meloxicam Allergy (Intermediate, Uncoded 06/08/24 08:31) Nausea Medication List - Last Reconciled 08/12/24 by Macarena Faust, RN ascorbic acid (vitamin C) mg PO DAILY aspirin 81 mg PO DAILY atenolol 25 mg PO DAILY cholecalciferol (vitamin D3) PO DAILY fluticasone propionate 50 mcg/actuation 1 spray intranasal DAILY PRN lorazepam 0.5 mg PO DAILY PRN losartan 25 mg PO DAILY [omega 3 pt states 1 cap daily 500mg ] gidxuzqkguuff-jjgjzdrddvkxz-QJ 5-325-200 mg (Mucinex Sinus-Max Severe Congestion Relief) 2 tabs PO Q4-6H PRN [REDS AND GREENS SUPPLEMENT 1 cap daily of each supplement ] warfarin 2.5 mg See Protocol PO DAILY Nursing Note NO CP,SOB,DIET/MED CHANGES,FALLS OR SX OF BLEEDING. CONTINUE PRESENT DOSE AND FOLLOW-UP IN 4 WEEKS. GOOD UNDERSTANDING OF DOSING INSTR. 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
== END 2024-08-12 09:02 | disposition home or self-care (01) ==
LOC: HO.ACS 08:40
PROVIDERS: PCP Internal Medicine; Visit Provider Internal Medicine
DX: Z79.01 Long term (current) use of anticoagulants (principal)

== ENCOUNTER → 2024-08-12 08:40 | Outpatient (BNVA) | payer MEDICARE, SELFPAY | PROVIDERS: PCP Internal Medicine; Visit Provider Internal Medicine | DX: Z86.73 Personal history of transient ischemic attack (TIA), and cerebral infarction without residual deficits (principal); Z79.01 Long term (current) use of anticoagulants; Z51.81 Encounter for therapeutic drug level monitoring | CPT/HCPCS: 85610; 99211 ==

== ENCOUNTER 2024-09-09 08:56 | Outpatient (AMB) | payer MEDICARE, SELFPAY ==
[2024-09-09 09:01] LABS: Prothrombin Time Whole Bld POC 30.5 sec (11.1-13.5); ~PT, ~INR - Anti Coag Clinic 2.5 (0.9-1.1)
--- OUTSIDE RECORDS SUMMARY | 2024-09-09 09:04 | XMS_ITS ---
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 Generated for Printi oscar/Puneet/eTransmitting on:?09/09/2024 09:04 AM EST
--- OUTSIDE RECORDS SUMMARY | 2024-09-09 09:04 | XMS_ITS ---
Author Organization [facility] [place] Address [address] [place] [address] Care Team Providers Care Global Head [employer] Name Role Phone Aries Giles MD Primary Care Provider Kimberly Dixon Unavailable [phone] Allergies Allergen (clinical drug ingredient) Drug/Non Drug Allergy documented on EMR Reaction Allergy Type Onset Date Status Adhesive rash Allergy Active lisinopril Lisinopril coughing Drug Allergy Activ e meloxicam Meloxicam Unknown Drug Allergy Active REASON FOR VISIT Pcp-01/03/23, At Risk Footcare, Painful Nail(s) aggrevated by shoes and causing difficulty standing/walking, Skin problem(s) Medications Medication SIG (Take, Route, Frequency, Duration) Notes Start Date End Date Status Atenolol 25 MG 1 tablet Orally Once a day Active Coumadin Active Losartan Potassium 25 MG as directed Orally Active Rosuvastatin Calcium Not-Taking Fish Oil 1200 MG 1 capsule Orally Once a day Active Lisinopril Not-Takin g Valtrex 500 MG 1 tablet Orally Once a day for 10 day(s) Not-Taking Calcium 150 MG as directed Orally Not-Taking Biotin Not-Taking hydroCHLOROthiazide 12.5 MG 1 capsule Or ally Once a day for 30 day(s) Not-Taking Atorvastatin Calcium 10 MG Orally Not-Taking Warfarin Sodium Acti ve Lipitor Not-Taking Vitamin D3 1000 UNIT 3 tabs Orally Active Tylenol Active Vitamin C 500 MG Orally Act yaneth Aspirin 81 MG Orally Active Flonase 50 MCG/ACT 1 spray in each nostril Nasally PRN Active Social History Tobacco Use: Social History Observation Description Date Details (start date - stop date) Never Smoker NA - NA Tobacco Use/Smoking Question Answer Notes Are you a: nonsmoker Additional Findings: Tobacco Non-User Current no n-smoker Tobacco use other than smoking: Question Answer Notes Are you an other tobacco user? No Vital Signs Height 5 ft 3 in in 06/03/2024 Weight 169 lbs 06/03/2024 BMI 29.93 kg/m2 06/03/2024 Blood pressure systolic 118 mm Hg 06/03/20 24 Blood pressure diastolic 64 mm Hg 024 Encounters Encounter Location Date Provider Diagnosis [facility] [place] [address] [place] [address] 06/03/2024 Kimberly Marmolejo Type 2 diabetes mellitus with diabetic polyneuropathy E11.42 ; Xerosis of skin L85.3 and Tinea unguium B35.1 Assessments Encounter Date Diagnosis (ICD Code) Assessment Notes Treatment Notes Treatment Clinical Notes Section Notes 06/03/2024 Type 2 diabetes mellitus with diabetic polyneuropathy (ICD-10 - E11.42) 06/03/2024 Xerosis of skin (ICD-10 - L85.3) 06/03/2024 Tinea unguium (ICD-10 - B35.1) Plan Of Treatment Next Appt Details Follow Up: 3 Months, Reason: Provider Name:Kimberly malone, 11/18/2024 12:30:00 PM, [address] [place] [address], [phone], Procedure Notes * Category Sub-Category Detail Notes Debride Nail 6-10 Nail debridement Nail debridem ent performed extensively to reduce/remove overall nail length and girth, subungual debris, and necrotic tissue, by manual and electrical means with use of a nail nipper and/or dremel, to more viable healthy nail plate or bed tissue 6-10. Silver nitrate used for any petechial bleeding as necessary. Patient chooses, no pharmaceutical tx (12048) Keratoma Treatment Parring or Cutting o f Benign Hyperkeratotic Lesion(s) 53232 ( >4 Lesions) - The Benign hyperkeratotic lesions, as described above were pared, and/or cut utilizing a sterile #15 blade, tissue nippers, and/or dremel Progress Notes * Antonina MONTEROB: 8 (88 yo F)Acc No.[id number]:06/03/2024 Progress Note Patient:?Marissa Montero Provider:?Kimberly Marmolejo DPM :1935???Age:88 Y???Sex:Female D ate:06/03/2024 Address:[address] [place] [address] [place] Pcp:Aries Giles MD Subjective: * Chief Complaints: * ???Pcp-01/03/23At Risk Footc arePainful Nail(s) aggrevated by shoes and causing difficulty standing/walkingSkin problem(s) * HPI: ???At Risk footcare:?Pt States Last PCP Visit:?Date?01/04/2024 ???Skin problems:?Nature:?dryness , scaling.?Location:?B/L .?Duration:?several days.?Course:?worse.? * ROS:?General/Constitutional:?Nausea?denies, denies.?Vomiting?denies, denies.?Hunger Thirst?denies, denies.?Loss appetite?denies, denies.?Chills?denies, denies.?Fatigue?denies, denies.?Fever?denies, denies.?Night Sweats denies, denies.?Unexplained weight loss?denies, denies.?Unexplained weight gain?denies, denies.?HEENTM:?Dentures?denies, denies.?Dizziness?denies, denies.?Glasses/contacts?admits, admits.?Retinopathy?denies, denies.?Blurred/double vision?denies, denies.?TMJ?denies, denies.?Discharge/drainage?denies, denies.?Implants?denies, denies.?Sore throat?denies, denies.?Dental implants?denies, denies.?Hard of hearing ?denies, denies.?Difficulty chewing/swallowing/speaking?denies, denies.?Nose bleeds?denies, denies.?Sore mouth?denies, denies.?Respiratory:?On Oxygen?denies, denies.?Pneumonia/pleurisy?denies, denies.?Bronchitis?denies, denies.?Emphysema?denies, denies.?Coughing?denies, denies.?Cough blood?denies, denies.?Shortness of breath?denies, denies.?Wheezing?denies, denies.?Cardiovascular:?Pacemaker?denies, denies.?MVP?denies, denies.?WPW?denies, denies.?CHF?denies, denies.?Heart attack?denies, denies.?Septal defect?denies, denies.?Rapid beat?denies, denies.?Chest pain ?denies, denies.?Atrial Fib.?denies, denies.?Murmur/Palpitations?denies, denies.?Gastrointestinal:?Hemorrhoids?denies, denies.?Stomach/Abdominal pain?denies, denies.?Dark blood stool?denies, denies.?Irritable bowel ?denies, denies.?Constipation?denies, denies.?Diarrhea?denies, denies.?Hematology:?Swelling?denies, denies.?Clots?denies, denies.?Varicose Veins?denies, denies.?Bruising?admits, denies, admits, denies.?Bleeding problem?denies, denies.?Genitourinary:?Blood urine?denies, denies.?Frequent/Painfu/urination/bladder control?denies, denies.?Kidney stones?denies, denies.?Infection (UTI)?denies, denies.?Nephropathy?denies, denies.?sex trans dis (STD)?denies, denies.?Prostate?denies, denies.?Musculoskeletal:?Hammertoes?denies, denies.?Bunions?denies, denies.?Back Pain?denies, denies.?Muscle Cramps/ Resting?denies, denies.?Muscle cramps / walking?denies, denies.?Generalized aches and pains?admits, denies, admits, denies.?Weakness?denies, denies.?Integ.:?Moon?denies, denies.?Scars?denies, denies.?Corns/calluses?denies, denies.?Ingrown nails?denies, denies.?Painful nails?denies, denies.?Open Sores?denies, denies.?Rashes?denies, denies.?Neurologic:?Difficulty sleeping?denies, denies.?Brain disorder?denies, denies.?Numbness?denies, denies.?Balance trouble?admits, admits.?Confusion?denies, denies.?Fainting/blackouts?denies, denies.?Tingling?denies, denies.?Tremors?denies, denies.? * Medical History:? 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 * Social History:?Tobacco Use:?Tobacco Use/Smoking?Are you a:?nonsmoker ?Additional Findings: Tobacco Non-User?Current non-smoker ?Tobacco use other than smoking?Are you an other tobacco user??No ???Miscellaneous:?Caffeine: yes, 1-2 cups per day. ?Children: yes. ?Exercise: yes, walking. ?Marital status: . 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 * Medications:?TakingCoumadin Losartan Potassium 25 MG Tablet as directed Orally Atenolol 25 MG Tablet 1 tablet Orally Once a dayFish Oil 1200 MG Capsule 1 capsule Orally Once a dayFlonase 50 MCG/ACT Suspension 1 spray in each nostril Nasally PRNVitamin C 500 MG Capsule Orally Aspirin 81 MG Tablet Delayed Release Orally Vitamin D3 1000 UNIT Capsule 3 tabs Orally Tylenol Warfarin Sodium Taking Coumadin Taking Losartan Potassium 25 MG Tablet as directed Orally Taking Atenolol 25 MG Tablet 1 tablet Orally Once a dayTaking Fish Oil 1200 MG Capsule 1 capsule Orally Once a dayTaking Flonase 50 MCG/ACT Suspension 1 spray in each nostril Nasally PRNTaking Vitamin C 500 MG Capsule Orally Taking Aspirin 81 MG Tablet Delayed Release Orally Taking Vitamin D3 1000 UNIT Capsule 3 tabs Orally Taking Tylenol Taking Warfarin Sodium Not-Taking/PRNRosuvastatin Calcium Lipitor Atorvastatin Calcium 10 MG Tablet Orally Lisinopril Valtrex 500 MG Tablet 1 tablet Orally Once a dayBiotin hydroCHLOROthiazide 12.5 MG Capsule 1 capsule Orally Once a dayCalcium 150 MG Tablet as directed Orally Medication List reviewed and reconciled with the patientNot-Taking/PRN Rosuvastatin Calcium Not-Taking/PRN Lipitor Not-Taking/PRN Atorvastatin Calcium 10 MG Tablet Orally Not-Taking/PRN Lisinopril Not- Taking/PRN Valtrex 500 MG Tablet 1 tablet Orally Once a dayNot-Taking/PRN Biotin Not- Taking/PRN hydroCHLOROthiazide 12.5 MG Capsule 1 capsule Orally Once a dayNot-Taking/PRN Calcium 150 MG Tablet as directed Orally Medication List reviewed and reconciled with the patient * Allergies:?Adhesive: rashLis inopril: coughing - Side EffectsMeloxicamyes[Allergies Verified] Objective: * Vitals:?Ht: 5 ft 3 in, Wt: 1 69, BMI: 29.93, Shoe size: 11, BP: 118/64 mm Hg, BS: not taken, Wt-k.66 kg. * ???Past Orders: ???Lab:HEMOGLOBIN A1C (GLYCO HEMOGLOBIN) (Order Date - 01/04/2024) (Collection Date - 01/04/2024) ? Value Reference Range ?HEMOGLOBIN A1C % (HH) 5.0 * Examination: ???Ophthalmology Referral: ?DIABETES EYE EXAM?Neurological: ?SENSORY:?Neurological exam demonstrates reduced light touch sensation reduced sharp/dull pin prick discrimination reduced vibration sensation reduced proprioception sensation in a stocking fashion plantar aspects 5.07 monofilament test performed at plantar aspects of 5 varied sites per foot shows sensation reduced at Forefoot B/L.?Nails: ?NAILS are:?Elongated, overgrown, dystrophic, lytic, greater than 3mm thick, discolored and friable with crumbly malodorous subungual debris with dull to no pain on palpation due to neuropathy, 1-5 B/L.?Dermatologic: ?SKIN FINDINGS:?Skin exam reveals Keratotic lesion(s) located at, TA, T5, T1, T6 T2 T7 SUB MTH (s) 5 B/L, , Skin shows sign(s) of, dryness, scaling, in a stocking fashion, no fissure(s) present, B/L.? Assessment: * Assessment: 1.?Type 2 diabetes mellitus with diabetic polyneuropathy - E11.42?2.?Xerosis of skin - L85.3 (Primary), Acute problem, Uncomplicated (3),Rx Management (4)?3.?Tinea unguium - B35.1? Plan: * Treatment: * Procedures:?Debride Nail 6-10:?Nail debridement?Nail debridement performed extensively to reduce/remove overall nail length and girth, subungual debris, and necrotic tissue, by manual and electrical means with use of a nail nipper and/or dremel, to more viable healthy nail plate or bed tissue 6-10. Silver nitrate used for any petechial bleeding as necessary. Patient chooses, no pharmaceutical tx (44640).?Keratoma Treatment:?Parring or Cutting of Benign Hyperkeratotic Lesion(s)?27428 ( >4 Lesions) - The Benign hyperkeratotic lesions, as described above were pared, and/or cut utilizing a sterile #15 blade, tissue nippers, and/or dremel.? * Procedure Codes:?04161 DEBRI DE NAIL, 6 OR MORE, Modifiers: XS 08706 TRIM SKIN LESIONS, OVER 4, Modifiers: XS * Preventive Medicine:? ??Counseling:?Discussion:?-13: Office or other outpatient visit for the evaluation and management of an established patient, which required a medically appropriate history and/or examination and LOW level of DECISION MAKING for: 1 STABLE ACUTE UNCOMPLICATED PROBLEM, 2 OR MORE MINOR PROBLEMS, OR 1 STABLE CHRONIC PROBLEM, THAT POSE(S) A LOW RISK FOR MORBIDITY/MORTALITY. The visit on the day of the encounter encompassed interpreting the data and educating the patient as to the nature of their condition, treatment options available according to their individual PMH, meds, allergies, and overall health/living conditions, as well as any potential risks or complications that may occur from a failure to adhere to, and participate in, the recommended course of therapy. The discussion included a complete verbal, and/or written explanation of the examination results, any x-rays taken, the proposed diagnosis, and outline of the treatment plan. A schedule for future care needs was also explained. The patient verbalized an understanding of the instructions at this time and agreed to be an active participant in their treatment. If the patient should think of any questions or concerns after the visit, I have encouraged the patient to call the office.?Xerosis:?The patient was counseled on the diagnosis, potential etiologies, and treatment options for their skin condition. We discussed the risks and benefits of each option from performing no treatment, to utilizing OTC topical skin creams/ointments, to utilizing prescription topical creams/ointments, to utilizing customized compounded topical medications and use of nocturnal occlusion with any/all previously detailed therapies. We discussed the advantages and disadvantages of each possible treatment and importance for adherence to all the recommended therapies for optimum success and avoid potential complications such as open sore/infection/possible hospitalization. We discussed the potential effectiveness of each topical preparation as well as each ones possible side effects and/or patient medication interactions. Patient questions re: use, dosage, successful outcomes, and application consistency were reviewed and the patient verbalized that all answers were clearly understood. The patient has decided to apply Rx skin creams to their feet save the interspaces while paying special attention to the heels. Such was sent to their pharmacy at the time of visit.? * Follow Up:?3 Months * Images: * Sign off status: Completed true * Provider:?Kimberly Mramolejo DPTroy Date:? Generated for Dana moore/Puneet/Chris on:?09/09/2024 09:04 AM EST History and Physical Notes * HPI (History of Present Illness) Category Sub-Category Detail Notes Category Not es Skin problems Nature: dryness , scaling Location: B/L Duration: several days Course: worse At Risk footcare Pt States Last PCP Visit: Date: 4 Examination Category Sub-Category Detail Notes Category Not es Neurological SENSORY: Neurological exa m demonstrates reduced light touch sensation reduced sharp/dull pin prick discrimination reduced vibration sensation reduced proprioception sensation in a stocking fashion plantar aspects 5.07 monofilament test performed at plantar aspects of 5 varied sites per foot shows sensation reduced at Forefoot B/L Dermatologic SKIN FINDINGS: Skin exam reveal s Keratotic lesion(s) located at, TA, T5, T1, T6 T2 T7 SUB MTH (s) 5 B/L, , Skin shows sign(s) of, dryness, scaling, in a stocking fashion, no fissure(s) present, B/L Ophthalmology Referral DIABETES EYE EXAM Diabeti c Retinopathy Screening:: Yes Findings of Diabetic Eye Exam:: no retin opathy Nails NAILS are: Elongated, overg rown, dystrophic, lytic, greater than 3mm thick, discolored and friable with crumbly malodorous subungual debris with dull to no pain on palpation due to neuropathy, 1-5 B/L
--- OUTSIDE RECORDS SUMMARY | 2024-09-09 09:04 | XMS_ITS ---
Author Organization [facility] Address [address] [place] [address] Care Team Providers Care Survey Superintendent Name Role Phone Aries Giles MD Primary Care Provider Kimberly Dixon [phone] Encounters Encounter Location Date Provider Diagnosis [facility] [address] [place] [address] 09/02/2024 Kimberly Marmolejo Plan Of Treatment Next Appt Details Provider Name:Kimberly malone, 11/18/2024 12:30:00 PM, [address] [place] [address], [phone], Progress Notes * Marissa MONTERODOB: 8 (88 yo F)Acc No.[id number]:09/02/2024 Progress Note Patient:?Marissa MONTERO Provider:?Kimberly Marmolejo DPM :1935???Age:88 Y???Sex:Female D ate:09/02/2024 Address:[address] [place], [place] [address] Pcp:Aries Giles MD Subjective: * Chief Complaints: * ??? * Medical History:? Objective: * Vitals:? Assessment: Plan: * Treatment: * Images: * The named appointment provid er may or may not be the originator of this progress note, and it is not deemed complete until electronically signed by the appointment provider. Sign off status: Pending * Provider:?Kimberly Marmolejo DPM Date:? Generated for Dana moore/Puneet/Jeniferitting on:?09/09/2024 09:04 AM EST
--- OUTSIDE RECORDS SUMMARY | 2024-09-09 09:04 | XMS_ITS | Patient Health Record ---
Author Organization [facility] Address [address] [place] [address] Care Team Providers Care Library Director Name Role Phone Aries Giles MD Primary Care Provider Kimberly Dixon Unavailable [phone] Allergies Allergen (clinical drug ingredient) Drug/Non Drug Allergy documented on EMR Reaction Allergy Type Onset Date Status Adhesive rash Allergy Active lisinopril Lisinopril coughing Drug Allergy Activ e meloxicam Meloxicam Unknown Drug Allergy Active Results Component Value Reference Range Notes HEMOGLOBIN A1C (GLYCOHEMOGLO BIN) Reviewed date:06/03/2024 08:57:27 AM Interpretation: Performing Lab: Notes/Report: HEMOGLOBIN A1C % (HH) 5.0 HEMOGLOBIN A1C (GLYCOHEMOGLO BIN) Reviewed date:02/23/2024 03:23:27 PM Interpretation: Performing Lab: Notes/Report: HEMOGLOBIN A1C % (HH) 6.1 Reason For Referral No Information Medications Medication SIG (Take, Route, Frequency, Duration) Notes Start Date End Date Status Lisinopril Not-Takin g Atenolol 25 MG 1 tablet Orally Once a day Active Valtrex 500 MG 1 tablet Orally Once a day for 10 day(s) Not-Taking Coumadin Active Atorvastatin Calcium 10 MG Orally Not-Taking Losartan Potassium 25 MG as directed Orally Active Warfarin Sodium Acti ve Rosuvastatin Calcium Not-Taking Lipitor Not-Taking Vitamin D3 1000 UNIT 3 tabs Orally Active Tylenol Active Vitamin C 500 MG Orally Act yaneth Calcium 150 MG as directed Orally Not-Taking Aspirin 81 MG Orally Active Fish Oil 1200 MG 1 capsule Orally Once a day Active Biotin Not-Taking Flonase 50 MCG/ACT 1 spray in each nostril Nasally PRN Active hydroCHLOROthiazide 12.5 MG 1 capsule Or ally Once a day for 30 day(s) Not-Taking Immunizations Vaccine Route Administration Date Status Comme nts Influenza Unknown 06/03/2018 Administered Influenza Unknown 07/18/2019 Administered Influenza Unknown 07/09/2020 Administered Influenza Unknown 06/24/2021 Administered Influenza Unknown 03/11/2023 Refused Influenza Unknown 06/22/2023 Administered Social History Tobacco Use: Social History Observation Description Date Details (start date - stop date) Never Smoker NA - NA Tobacco Use/Smoking Question Answer Notes Are you a: nonsmoker Additional Findings: Tobacco Non-User Current no n-smoker Alcohol Screen Question Answer Notes Did you have a drink containing alcohol in the p ast year? No Points 0 Interpretation Negative Tobacco use other than smoking: Question Answer Notes Are you an other tobacco user? No Problems Problem Type SNOMED Code ICD Code Onset Dates Problem Status W/U Status Risk Notes Problem Polyneuropathy due to type 2 diabetes mellitus ([id number]) Type 2 diabetes mellitus with diabetic polyneuropathy (E11.42) Active confirmed Vital Signs Blood pressure diastolic 64 mm Hg 06/03/2024 Height 5 ft 3 in in 06/03/2024 Blood pressure systolic 118 mm Hg 06/03/2024 Weight 169 lbs 06/03/2024 BMI 29.93 kg/m2 06/03/2024 Encounters Encounter Location Date Provider Diagnosis [address] [address] 10/13/2023 Kimberly Marmolejo Type 2 diabetes mellitus with diabetic polyneuropathy E11.42 ; Tinea unguium B35.1 and Contusion of lesser toe of right foot without damage to nail, [facility] [address] 02/23/[facility]24 Kimberly Marmolejo Type 2 diabetes mellitus with diabetic polyneuropathy E11.42 and Tinea unguium B35.[address] [address] 06/03/2024 Kimberly Marmolejo Type 2 diabetes mellitus with diabetic polyneuropathy E11.42 ; Xerosis of skin L85.3 and Tinea unguium B35.[address] [address] 01/12/2024 Kimberly Marmolejo [facility] [place] [address] [place] [address] 08/31/2024 Kimberly Marmolejo Assessments Encounter Date Diagnosis (ICD Code) Assessment Notes Treatment Notes Treatment Clinical Notes Section Notes 10/13/2023 Tinea unguium (ICD-10 - B35.1) 10/13/2023 Type 2 diabetes mellitus with diabetic polyneuropathy (ICD-10 - E11.42) 02/23/2024 Tinea unguium (ICD-10 - B35.1) 02/23/2024 Type 2 diabetes mellitus with diabetic polyneuropathy (ICD-10 - E11.42) 06/03/2024 Type 2 diabetes mellitus with diabetic polyneuropathy (ICD-10 - E11.42) 06/03/2024 Xerosis of skin (ICD-10 - L85.3) 06/03/2024 Tinea unguium (ICD-10 - B35.1) 10/13/2023 Contusion of lesser toe of right foot without damage to nail, initial encounter (ICD-10 - S90.121A) Plan Of Treatment Pending Test Test Name Order Date [id number] NAIL, 6 OR MORE 05/09/2013 [id number] NAIL, 6 OR MORE 12/15/2013 [id number] Plate 12/15/2013 [id number] Plate Each Additional Next Appt Details Provider Name:Kimberly malone, 11/18/2024 12:30:00 PM, [address] [facility], [place], [address], Insurance Providers Payer Name Payer Address Payer Phone Subscriber Number Group Number Insured Name Patient Relationship to Insured Coverage Start Date Coverage End Date Medicare National [facility] [address] [facility] [id number] [phone] [id number] Marissa Montero Self - patient is the insured [employer] [address] [place] [address] [id number] Marissa Montero Self - patient is the insured Medical (General) History Medical History History ICD Code Arthritis chicken pox measles eczema thyroid disorder pre type II diabetes Neuropathy TIA Cataracts Surgical History Surgery Date(Month/Year) appendectomy 1966 cataract surgery 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
--- NOTE | 2024-09-09 09:17 | MHC.OFFVISCO ---
Intake Intake Visit Reasons: Anticoagulation Allergies rosuvastatin Adverse Reaction (Intermediate, Verified 09/09/24 08:56) Weakness meloxicam Allergy (Intermediate, Uncoded 06/08/24 08:31) Nausea Medication List - Last Reconciled 09/09/24 by Macarena Faust, RN ascorbic acid (vitamin C) mg PO DAILY aspirin 81 mg PO DAILY atenolol 25 mg PO DAILY cholecalciferol (vitamin D3) PO DAILY fluticasone propionate 50 mcg/actuation 1 spray intranasal DAILY PRN lorazepam 0.5 mg PO DAILY PRN losartan 25 mg PO DAILY [omega 3 pt states 1 cap daily 500mg ] [id number] 5-325-200 mg (Mucinex Sinus-Max Severe Congestion Relief) 2 tabs PO Q4-6H PRN [REDS AND GREENS SUPPLEMENT 1 cap daily of each supplement ] warfarin 2.5 mg See Protocol PO DAILY Nursing Note NO CP,SOB,DIET/MED CHANGES,FALLS OR SX OF BLEEDING. CONTINUE PRESENT DOSE AND FOLLOW-UP IN 5 WEEKS DUE TO WINTER WEATHER. GOOD UNDERSTANDING OF DOSING INSTR. 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
== END 2024-09-09 09:32 | disposition home or self-care (01) ==
LOC: HO.ACS 08:56
PROVIDERS: PCP Internal Medicine; Visit Provider Internal Medicine
DX: Z79.01 Long term (current) use of anticoagulants (principal)

== ENCOUNTER → 2024-09-09 08:56 | Outpatient (BNVA) | payer MEDICARE, SELFPAY | PROVIDERS: PCP Internal Medicine; Visit Provider Internal Medicine | DX: Z86.73 Personal history of transient ischemic attack (TIA), and cerebral infarction without residual deficits (principal); Z79.01 Long term (current) use of anticoagulants; Z51.81 Encounter for therapeutic drug level monitoring | CPT/HCPCS: 85610; 99211 ==

== ENCOUNTER 2024-10-21 09:04 | Outpatient (AMB) | payer MEDICARE, SELFPAY ==
[2024-10-21 09:24] LABS: Prothrombin Time Whole Bld POC 23.8 sec (11.1-13.5)
--- NOTE | 2024-10-21 09:56 | MHC.OFFVISCO ---
Intake Intake Visit Reasons: Anticoagulation Allergies rosuvastatin Adverse Reaction (Intermediate, Verified 10/21/24 09:17) Weakness meloxicam Allergy (Intermediate, Uncoded 10/21/24 09:17) Nausea Medication List - Last Reconciled 10/21/24 by Lety Yusuf RN ascorbic acid (vitamin C) mg PO DAILY aspirin 81 mg PO DAILY atenolol 25 mg PO DAILY cholecalciferol (vitamin D3) PO DAILY fluticasone propionate 50 mcg/actuation 1 spray intranasal DAILY PRN lorazepam 0.5 mg PO DAILY PRN losartan 25 mg PO DAILY [omega 3 pt states 1 cap daily 500mg ] [id number] 5-325-200 mg (Mucinex Sinus-Max Severe Congestion Relief) 2 tabs PO Q4-6H PRN [REDS AND GREENS SUPPLEMENT 1 cap daily of each supplement ] warfarin 2.5 mg See Protocol PO DAILY Nursing Note INR: 2.0 in therapeutic range Medications and supplements reviewed pt has lost weight by being more active taking care of spouse - he has fallen at home Denies any signs and symptoms of bleeding or bruising or clotting. Bleeding, bruising, clotting discussed Nutritional guidance given - avoid greens today- eat orange and reds to help raise the INR Dose: keep usual dose 2.5mg x 1 day/ 1.25mg x 6 days F/U INR: 1 month Patient verbalizes understanding of instructions given with read back and date on paper Anti-Coag Initial Assessment Social Hx Alcohol intake frequency: does not drink Coding Level of Care Code Est Patient Level 1 Diagnoses Current use of anticoagulant therapy Z79.01 Results AMB INR Fingerstick AMB INR Fingerstick 2.0 Last Edit by Lety Yusuf RN on 10/21/24 09:24 manual entry Assessment & Plan Assessment & Plan (1) Current use of anticoagulant therapy: Code(s): Z79.01 - 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
== END 2024-10-21 10:03 | disposition home or self-care (01) ==
LOC: HO.ACS 09:04
PROVIDERS: PCP Internal Medicine; Visit Provider Internal Medicine
DX: Z79.01 Long term (current) use of anticoagulants (principal)

== ENCOUNTER 2024-11-18 09:06 | Outpatient (AMB) | payer MEDICARE, SELFPAY ==
[2024-11-18 09:16] LABS: Prothrombin Time Whole Bld POC 28.4 sec (11.1-13.5); ~PT, ~INR - Anti Coag Clinic 2.4 (0.9-1.1)
--- NOTE | 2024-11-18 09:21 | MHC.OFFVISCO ---
Intake Intake Visit Reasons: Anticoagulation Allergies rosuvastatin Adverse Reaction (Intermediate, Verified 11/18/24 09:12) Weakness meloxicam Allergy (Intermediate, Uncoded 11/18/24 09:12) Nausea Medication List - Last Reconciled 11/18/24 by Bev Laws, RN ascorbic acid (vitamin C) mg PO DAILY aspirin 81 mg PO DAILY atenolol 25 mg PO DAILY cholecalciferol (vitamin D3) PO DAILY fluticasone propionate 50 mcg/actuation 1 spray intranasal DAILY PRN lorazepam 0.5 mg PO DAILY PRN losartan 25 mg PO DAILY [omega 3 pt states 1 cap daily 500mg ] [id number]-zxcugtilmcrej-NN 5-325-200 mg (Mucinex Sinus-Max Severe Congestion Relief) 2 tabs PO Q4-6H PRN [REDS AND GREENS SUPPLEMENT 1 cap daily of each supplement ] warfarin 2.5 mg See Protocol PO DAILY Nursing Note INR: 2.4 in therapeutic range of 2-3 Medications and supplements reviewed No changes in health, diet, medications, or supplements, Denies any signs and symptoms of bleeding or bruising or clotting. Bleeding, bruising, clotting discussed Nutritional guidance given Dose: 1.25mg X 6 days and 2.5mg X 1 day (Mon) F/U INR: 4 weeks Patient verbalizes understanding of instructions given Anti-Coag Initial Assessment Social Hx Alcohol intake frequency: does not drink Coding Level of Care Code Est Patient Level 1 Diagnoses Current use of anticoagulant therapy Z79.01 Results AMB INR Fingerstick AMB INR Fingerstick 2.4 Last Edit by Bev Laws, DAJA on 11/18/24 09:15 interface delay Assessment & Plan Assessment & Plan (1) Current use of anticoagulant therapy: Code(s): Z79.01 - halfway (current) use of anticoagulants Category: Medical
--- OUTSIDE RECORDS SUMMARY | 2024-11-18 09:38 | XMS_ITS ---
Author Organization [facility] Address [address] [place] [address] Care Team Providers Care Mainspring Torque Tester Name Role Phone Aries Giles MD Primary Care Provider Kimberly Dixon Unavailable [phone] Allergies Allergen (clinical drug ingredient) Drug/Non Drug Allergy documented on EMR Reaction Allergy Type Onset Date Status Adhesive rash Allergy Active lisinopril Lisinopril coughing Drug Allergy Activ e meloxicam Meloxicam Unknown Drug Allergy Active Medications Medication SIG (Take, Route, Frequency, Duration) Notes Start Date End Date Status Calcium 150 MG as directed Orally Not-Taking Valtrex 500 MG 1 tablet Orally Once a day for 10 day(s) Not-Taking Lisinopril Not-Takin g hydroCHLOROthiazide 12.5 MG 1 capsule Or ally Once a day for 30 day(s) Not-Taking Biotin Not-Taking Tylenol Active Rosuvastatin Calcium Not-Taking Warfarin Sodium Acti ve Atorvastatin Calcium 10 MG Orally Not-Taking Lipitor Not-Taking Aspirin 81 MG Orally Active Vitamin C 500 MG Orally Act yaneth Vitamin D3 1000 UNIT 3 tabs Orally Active Flonase 50 MCG/ACT 1 spray in each nostril Nasally PRN Active Fish Oil 1200 MG 1 capsule Orally Once a day Active Atenolol 25 MG 1 tablet Orally Once a day Active Losartan Potassium 25 MG as directed Orally Active Coumadin Active Encounters Encounter Location Date Provider Diagnosis [facility] [address] [place] [address] 11/18/2024 Kimberly Marmolejo Plan Of Treatment No Information Progress Notes * Marissa MONTERODOB: 8 (89 yo F)Acc No.[id number]:11/18/2024 Progress Note Patient:?Marissa MONTERO Provider:?Kimberly Marmolejo DPM :1935???Age:89 Y???Sex:Female D ate:11/18/2024 Address:[address] [place], [place] [id number] Pcp:Aries Giles MD Subjective: * Chief Complaints: * ??? * Medical History:?Arthritis, Chicken pox, Measles, Eczema, Thyroid disorder, pre type II diabetes, Neuropathy, TIA, Cataracts. * Medications:?Taking Coumadin , Taking Losartan Potassium 25 MG Tablet as directed Orally , Taking Atenolol 25 MG Tablet 1 tablet Orally Once a day , Taking Fish Oil 1200 MG Capsule 1 capsule Orally Once a day , Taking Flonase 50 MCG/ACT Suspension 1 spray in each nostril Nasally PRN , Taking Vitamin C 500 MG Capsule Orally , Taking Aspirin 81 MG Tablet Delayed Release Orally , Taking Vitamin D3 1000 UNIT Capsule 3 tabs Orally , Taking Tylenol , Taking Warfarin Sodium , Not-Taking/PRN Rosuvastatin Calcium , Not-Taking/PRN Lipitor , Not-Taking/PRN Atorvastatin Calcium 10 MG Tablet Orally , Not-Taking/PRN Lisinopril , Not-Taking/PRN Valtrex 500 MG Tablet 1 tablet Orally Once a day , Not-Taking/PRN Biotin , Not-Taking/PRN hydroCHLOROthiazide 12.5 MG Capsule 1 capsule Orally Once a day , Not-Taking/PRN Calcium 150 MG Tablet as directed Orally * Allergies:?Adhesive: rash, L isinopril: coughing - Side Effects, Meloxicam. Objective: * Vitals:? Assessment: Plan: * Treatment: * Images: * The named appointment provid er may or may not be the originator of this progress note, and it is not deemed complete until electronically signed by the appointment provider. Sign off status: Pending * Provider:?Kimberly Marmolejo DPM Date:? Generated for Dana moore/Puneet/Chris on:?11/18/2024 09:38 AM EST
--- OUTSIDE RECORDS SUMMARY | 2024-11-18 09:39 | XMS_ITS | Patient Health Record ---
Author Organization [facility] Address [address] [facility] [place] [address] Care Team Providers Care Toolmaker Name Role Phone Aries Giles MD Primary Care Provider Kimberly Dixon Unavailable [phone] Allergies Allergen (clinical drug ingredient) Drug/Non Drug [...] Duration) Notes Start Date End Date Status Aspirin 81 MG Orally Active Vitamin C 500 MG Orally Act yaneth Tylenol Active Vitamin D3 1000 UNIT 3 tabs Orally Active Atenolol 25 MG 1 tablet Orally Once a day Active Losartan Potassium 25 MG as directed Orally Active Flonase 50 MCG/ACT 1 spray in each nostril Nasally PRN Active Fish Oil 1200 MG 1 capsule Orally Once a day Active Valtrex 500 MG 1 tablet Orally Once a day for 10 day(s) Not-Taking Lisinopril Not-Takin g hydroCHLOROthiazide 12.5 MG 1 capsule Or ally Once a day for 30 day(s) Not-Taking Biotin Not-Taking Rosuvastatin Calcium Not-Taking Warfarin Sodium Acti ve Atorvastatin Calcium 10 MG Orally Not-Taking Lipitor Not-Taking Calcium 150 MG as directed Orally Not-Taking Coumadin Active Immunizations Vaccine Route Administration Date Status Comme [...] Polyneuropathy due to type 2 diabetes mellitus ([id number]) Type 2 diabetes mellitus with diabetic polyneuropathy (E11.42) Active confirmed Vital Signs Blood pressure diastolic 64 mm Hg 06/03/2024 Height 5 ft 3 in in 06/03/2024 Blood pressure systolic 118 mm Hg 06/03/2024 Weight 169 lbs 06/03/2024 BMI 29.93 kg/m2 06/03/2024 Encounters Encounter Location Date Provider Diagnosis [address] [address] 02/23/2024 Kimberly Marmolejo Type 2 diabetes mellitus with diabetic polyneuropathy E11.42 and Tinea unguium B35.[address] [address] 06/03/2024 Kimberly Marmolejo Type 2 diabetes mellitus with diabetic polyneuropathy E11.42 ; Xerosis of skin L85.3 and Tinea unguium B35.[address] [address] 01/12/2024 Kimberly Marmolejo [address] [address] 08/31/2024 Kimberly Marmolejo [address] [address] 11/16/2024 Kimberly Marmolejo Assessments Encounter Date Diagnosis (ICD Code) Assessment Notes Treatment Notes Treatment Clinical Notes Section Notes 02/23/2024 Tinea unguium (ICD-10 - B35.1) 02/23/2024 Type 2 diabetes mellitus with diabetic polyneuropathy (ICD-10 - E11.42) 06/03/2024 Type 2 diabetes mellitus with diabetic polyneuropathy (ICD-10 - E11.42) 06/03/2024 Xerosis of skin (ICD-10 - L85.3) 06/03/2024 Tinea unguium (ICD-10 - B35.1) Plan Of Treatment Pending Test Test Name Order Date [id number] NAIL, 6 OR MORE 05/09/2013 [id number] NAIL, 6 OR MORE 12/15/2013 [id number] Plate 12/15/2013 [id number] Plate Each Additional Insurance Providers Payer Name Payer Address Payer Phone Subscriber Number Group Number Insured Name Patient Relationship to Insured Coverage Start Date Coverage End Date Medicare National [employer] [address] 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
--- OUTSIDE RECORDS SUMMARY | 2024-11-18 09:39 | XMS_ITS ---
Author Organization [facility] Address [address] [place] [address] Care Team Providers Care Locomotive Mechanic Apprentice Name Role Phone Chan MEEHAN, Aries Primary Care Provider Kimberly Dixon [phone] Encounters Encounter Location Date Provider Diagnosis [facility] [address] [place] [address] 09/02/2024 Kimberly Marmolejo Plan Of Treatment No Information Progress Notes * Marissa MONTERODOB: 8 (89 yo F)Acc No.[id number]:09/02/2024 Progress Note Patient:?Marissa MONTERO Provider:?Kimberly Marmolejo DPM :1935???Age:88 Y???Sex:Female D ate:09/02/2024 Address:[address] [place], [place] [id number] Pcp:Aries Giles MD Subjective: * Chief Complaints: * ??? * Medical History:? Objective: * Vitals:? Assessment: Plan: * Treatment: * Images: * The named appointment provid er may or may not be the originator of this progress note, and it is not deemed complete until electronically signed by the appointment provider. Sign off status: Pending * Provider:?Kimberly Marmolejo DPM Date:? Generated for Dana moore/Puneet/eTransmitting on:?11/18/2024 09:38 AM EST
--- OUTSIDE RECORDS SUMMARY | 2024-11-18 09:39 | XMS_ITS ---
Author Organization [facility] Address [address] [place] [address] Care Team Providers Care Internal Medicine Physician Assistant Name Role Phone Aries Giles MD Primary Care Provider Kimberly Dixon [phone] REASON FOR VISIT cx appt Encounters Encounter Location Date Provider Diagnosis [facility] [address] [place] [address] 11/16/2024 Kimberly Marmolejo Plan Of Treatment No Information Progress Notes * Lamonte MONTEROsumitDOB: 8 (89 yo F)Acc No.[id number]:11/16/2024 Patient:?Marissa MONTERO :1935???Age:89 Y???Sex:Female Address:[address] [place] [address] * true * Date:? Generated for Dana moore/Puneet/eTransmitting on:?11/18/2024 09:39 AM EST
== END 2024-11-18 09:23 | disposition home or self-care (01) ==
LOC: HO.ACS 09:06
PROVIDERS: PCP Internal Medicine; Visit Provider Internal Medicine
DX: Z79.01 Long term (current) use of anticoagulants (principal)

== ENCOUNTER → 2024-11-18 09:06 | Outpatient (BNVA) | payer MEDICARE, SELFPAY | PROVIDERS: PCP Internal Medicine; Visit Provider Internal Medicine | DX: Z86.73 Personal history of transient ischemic attack (TIA), and cerebral infarction without residual deficits (principal); Z79.01 Long term (current) use of anticoagulants; Z51.81 Encounter for therapeutic drug level monitoring | CPT/HCPCS: 85610; 99211 ==

== ENCOUNTER 2024-12-08 13:11 | Outpatient (AMB) | payer MEDICARE, SELFPAY ==
--- NOTE | 2024-12-08 13:16 | MHC.PC.OV ---
Vital Signs 12/08/24 13:18 Height 5 ft 2.6 in Weight 159 lb 8 oz BMI 28.6 BP 130/60 Blood Pressure Location Lt brachial Position Sitting Pulse 70 Pulse Source Pulse Oximeter Temp 97.4 F Temp Source Temporal Artery Scan Pulse Oximetry (%) 97 Oxygen Delivery Method Room Air Intake Visit Reasons: establish care Intake Note: Patient is a new patient here to establish care for Stroke/TIA, HTN, Cholesterol, Sleep apnea (use cpap machine), Thyroid problems, DM. Transferring care from A[facility] Tim. Medical records have been requested and have not received. Event Attendant Required: No Director Of Casework Department: Present Accompanied by: Son Allergies rosuvastatin Adverse Reaction (Intermediate, Verified 12/08/24 13:45) Weakness meloxicam Allergy (Intermediate, Uncoded 12/08/24 13:45) Nausea Medication List - Last Reconciled 12/08/24 by Mary Booth PA-C ascorbic acid (vitamin C) mg PO DAILY aspirin 81 mg PO DAILY atenolol 12.5 mg PO DAILY cholecalciferol (vitamin D3) PO DAILY fluticasone propionate 50 mcg/actuation 1 spray intranasal DAILY PRN losartan 25 mg PO DAILY [omega 3 pt states 1 cap daily 500mg ] indhzeihjsdhj-hmahsdjamhqxr-NM 5-325-200 mg (Mucinex Sinus-Max Severe Congestion Relief) 2 tabs PO Q4-6H PRN [REDS AND GREENS SUPPLEMENT 1 cap daily of each supplement ] warfarin 2.5 mg See Protocol PO DAILY Tobacco use date assessed: 12/08/24 Fall risk assessment: No Falls in past year Last assessed Fall Risk: 12/08/24 Dental Screening Dental Screen Date: 12/08/24 Did you have a dental visit in the last 12 months?: Yes Did you have a dental problem in the last 6 months where you did not have access to dental care?: No Was dental information given to patient?: Patient has dentist HPI establish care HPI Details 89-year-old female coming to the office for the 1st time. Patient was previously being seen by Nilam Bravo in [place]. The patient is an 89-year-old female presenting for a transfer visit and comprehensive review of chronic conditions. She was diagnosed with pre-diabetes, she manages this primarily through dietary modifications. She has a documented history of stroke in 2013, discovered after an episode of unusual handwriting, with carotid artery narrowing noted during follow-up imaging. She has hypertension and has experienced side effects from lipid-lowering medications, leading to their discontinuation. The patient is also affected by sleep apnea, successfully managed with a CPAP machine. 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 [facility] Medical History Subarachnoid hemorrhage Sleep apnea HLD (hyperlipidemia) HTN (hypertension) Cataract TIA (transient ischemic attack) Surgical History History of cataract surgery Hx of appendectomy Social History Housing: House Alcohol intake: never Patient Tobacco Use Status: Never used Tobacco e-Cigarette/Vaping Use: Never Used Second Hand Smoke Exposure: No service: No Current occupational status: retired Cognitive needs: Yes (walker) Hearing needs: No Vision needs: Yes (Glasses) Questionnaire PHQ-9 Over the last 2 weeks, how often have you been bothered by any of the following problems? 1. Little interest or pleasure in doing things: not at all 2. Feeling down, depressed, or hopeless: not at all 3. Trouble falling or staying asleep, or sleeping too much: not at all 4. Feeling tired or having little energy: not at all 5. Poor appetite or overeating: not at all 6. Feeling bad about yourself - or that you are a failure or have let yourself or your family down: not at all 7. Trouble concentrating on things, such as reading the newspaper or watching television: not at all 8. Moving or speaking so slowly that other people could have noticed. Or the opposite - being so fidgety or restless that you have been moving around a lot more than usual: not at all 9. Thoughts that you would be better off or of hurting yourself in some way: not at all Total score: 0 Depression Screening Interpretation: Negative Depression Screening Done: Yes Source: Developed by Drs. Avila Merlos, Fallon Sales, Quinton Muñoz and colleagues, with an educational jose luis from [employer]. Thrive Questionnaire Date Thrive assessed: 12/08/24 I am a: Patient What is your living situation today?: I have a steady place to live Within the past 12 months, did the food you bought not last and you didn't have the money to get more?: Never true Within the past 12 months, did you worry whether your food would run out before you got money to buy more?: Never true Do you have trouble paying for medicines?: No Do you have trouble getting transportation to medical appointments?: No Do you have trouble paying your heating and electricity bill?: No Do you have trouble taking care of your child, family member or friend?: No Do you have trouble with day-to-day activities such as bathing, preparing meals, shopping, managing finances, etc.?: No Are you currently unemployed and looking for a job?: No Are you interested in more education?: No Please select the resources that you would like help with: None Currently or been in a relationship where the following occur: No concerns reported THRIVE Score: 0 AUDIT C Alcohol Use Questionnaire (AUDIT-C) 1. How often do you have a drink containing alcohol?: Never Total Score: 0 MALATHI-7 AMB Questionnaire MALATHI-7 Date MALATHI - 7 assessed: 12/08/24 Feeling nervous, anxious, or on edge: 0 = Not at all Not being able to stop or control worryin = Not at all Worrying too much about different things: 0 = Not at all Trouble relaxin = Not at all Being so restless that it is hard to sit still: 0 = Not at all Becoming easily annoyed or irritable: 0 = Not at all Feeling afraid as if something awful might happen: 0 = Not at all Total MALATHI-7 score (0-4 normal; 5-9 mild; 10-14 moderate; 15-21 severe): 0 Source: Developed by Drs. Avial Merlos, Fallon Sales, Quinton Muñoz and colleagues, with an educational jose luis from [employer]. Review of Systems Const Denies body aches, Denies chills, Denies fever(s), Denies headache(s) and Denies poor appetite Eyes Reports no additional complaints ENT Denies dysphagia, Denies dizziness, Denies headache(s) and Denies odynophagia Card Denies chest pain, Denies syncope, Denies edema, Denies irregular heart rhythm, Denies lightheadedness and Denies dyspnea Resp Denies cough and Denies dyspnea GI Denies abdominal pain, Reports constipation, Denies dysphagia, Denies diarrhea, Denies nausea, Denies odynophagia and Denies vomiting Reports no additional complaints Musc Reports no additional complaints and Denies abnormal gait Skin/Breast Reports system reviewed and no additional complaints, except as documented Neuro Denies abnormal gait, Denies dizziness, Denies syncope and Denies headache(s) Psych Reports no additional complaints Physical exam (Primary Care) Vital Signs: Last Vital Signs Temp 97.4 F 12/08/24 13:18 Pulse 70 12/08/24 13:18 BP 130/60 12/08/24 13:18 Pulse Ox 97 12/08/24 13:18 Oxygen Delivery Method Room Air 12/08/24 13:18 BMI result Body Mass Index 28.6 Tobacco/Smoking Status: Tobacco use Status Tobacco use date assessed 12/08/24 12/08/24 13:22 Patient Tobacco Use Status Never used Tobacco 12/08/24 13:22 e-Cigarette/Vaping Use Never Used 12/08/24 13:22 PHQ-9: PHQ-9 Score PHQ-9: Total score 0 12/08/24 13:52 Depression Screening Interpretation: Negative Thrive Assessment: Date of Thrive Assessment Date Thrive assessed 12/08/24 12/08/24 13:22 Currently or been in a relationship where the following occur: No concerns reported Const General: cooperative, healthy appearing, comfortable and no acute distress Orientation/consciousness: patient oriented x3 [facility] Head: Yes normocephalic Ears: hearing grossly normal bilaterally General nose exam: Normal external nose present Eyes General: appearance normal, both eyes and all related structures Conjunctivae: conjunctivae normal Neck Neck: Yes full ROM and Yes no lymphadenopathy Resp Effort & Inspection: normal respiratory effort Auscultation: clear to auscultation bilaterally, no crackles, no rales, no rhonchi and no wheezes Cardio Rate: regular rate Rhythm: regular rhythm Skin General skin exam: no rashes or lesions noted Neuro General: patient oriented x3 Gait exam (Neuro): Normal gait present Extrem Other: Bruising and discoloration 2nd and 3rd toe of the right foot without pain to palpation, erythema or swelling General: Yes normal to inspection, Yes full ROM and No edema Psych Affect: normal affect Attitude: cooperative Insight: Good insight present (Psych) Judgement: Good judgement present (Psych) Results AMB Hemoglobin A1c AMB Hemoglobin A1c 5.6 % Last Edit by GEOVANNA Flannery on 12/08/24 13:52 Results Reviewed Results Reviewed: Laboratory Last Values Hgb A1c (Clinic) 5.6 % (4.0-6.0) 12/08/24 13:44 Coding Level of Care Code New Pt Level 4 (64548) Diagnoses CVA (cerebral vascular accident) I63.9 HTN (hypertension) I10 Sleep apnea G47.30 HLD (hyperlipidemia) E78.5 Carotid stenosis I65.29 GERD (gastroesophageal reflux disease) K21.9 Impaired glucose tolerance R73.02 Constipation K59.00 Assessment & Plan Assessment & Plan (1) CVA (cerebral vascular accident): Code(s): I63.9 - Cerebral infarction, unspecified Category: Medical Plan: Patient was last seen in 2021 by her neurologist recommended reach out to the office to reschedule appointment. Advised good control of blood pressure, cholesterol and blood sugars. Ordered for updated blood work. (2) HTN (hypertension): Code(s): I10 - Essential (primary) hypertension Category: Medical Plan: Continue on current blood pressure medication. Avoid salt intake and encourage healthy diet and regular exercise. (3) Sleep apnea: Comment: uses CPAP nightly Code(s): G47.30 - Sleep apnea, unspecified Category: Medical Plan: Uses CPAP faithfully at least 4 hours a night and benefits from this therapy. (4) HLD (hyperlipidemia): Code(s): E78.5 - Hyperlipidemia, unspecified Category: Medical Plan: Avoid foods that are high in cholesterol such as red meat, fried foods, eggs and baked goods. Triglyceride goal of less than 150 and LDL goal of less than 70. Not currently on medical management. Ordered for updated blood work (5) Carotid stenosis: Code(s): I65.29 - Occlusion and stenosis of unspecified carotid artery Category: Medical Plan: We encouraged ongoing monitoring of the patient's carotid artery status given her history of stroke and carotid stenosis. Recommended following up with her neurologist as they were previously managing this condition. (6) GERD (gastroesophageal reflux disease): Code(s): K21.9 - Gastro-esophageal reflux disease without esophagitis Category: Medical Plan: Avoid trigger foods such as citrus, tomato products, soda, caffeine, spicy foods and other foods that may be irritating to your stomach. Avoid laying flat 3-4 hours after eating and elevate the head of the bed 30 degrees to prevent acid from moving into the esophagus. Not currently on medical management (7) Impaired glucose tolerance: Code(s): R73.02 - Impaired glucose tolerance (oral) Category: Medical Plan: Decrease the amount of carbohydrates such as pasta, bread, rice, and potatoes and limit the amount of sweets. Although fruits are generally healthy they should be eaten in moderation as they are still high in sugar. (8) Constipation: Code(s): K59.00 - Constipation, unspecified Category: Medical Plan: For gastrointestinal symptoms related to hemorrhoids and constipation, recommendations include increased fiber, hydration, and possibly combining senna with Colace. Plan This note was constructed using voice recognition software. While every effort has been made to ensure accuracy and children's librarian, still areas may have been included sometimes these areas may affect the content or meeting of the given symptoms. Total time spent caring for the patient today was 30 minutes. This includes time spent before the visit reviewing the chart, time spent during the visit, and time spent after the visit and documentation. Patient was informed and verbally consented to the use of an ambient scribe for clinic note documentation during this visit. Orders: Orders Comprehensive Met. Panel Today Z00.00 - Encounter for general adult medical examination without abnormal findings Complete Blood Count Auto Diff Today Z00.00 - Encounter for general adult medical examination without abnormal findings Lipid Panel Today E78.00 - Pure hypercholesterolemia, unspecified Vitamin D 25-OH Total Today Z00.00 - Encounter for general adult medical examination without abnormal findings AMB Hemoglobin A1c Today E11.9 - Type 2 diabetes mellitus without complications Free T4 (Free Thyroxine) Today Z00.00 - Encounter for general adult medical examination without abnormal findings Vitamin B12 and Folate Today Z00.00 - Encounter for general adult medical examination without abnormal findings TSH reflex Free T4 Today Z00.00 - Encounter for general adult medical examination without abnormal findings UA CC w/rflx Micro + Cult Today R35.89 - Other polyuria
[2024-12-08 13:18] VITALS: BP 130/60; PULSE 70; TEMP 36.3; O2SAT 97; BMI 28.6
--- OUTSIDE RECORDS SUMMARY | 2024-12-08 15:40 | XMS_ITS ---
Author Organization [facility] Address [address] [place] [address] Care Team Providers Care Media Center Assistant Name Role Phone Aries Giles MD Primary Care Provider Kimberly Dixon Unavailable [phone] Allergies Allergen (clinical drug ingredient) Drug/Non Drug [...] Active Encounters Encounter Location Date Provider Diagnosis [facility] [address] [place] [address] 11/18/2024 Kimberly Marmolejo Plan Of Treatment No Information Progress Notes * Marissa MONTERODOB: 8 (89 yo F)Acc No.[id number]:11/18/2024 Progress Note Patient:?Marissa MONTERO Provider:?Kimberly Marmolejo DPM :1935???Age:89 Y???Sex:Female D ate:11/18/2024 Address:[address] [place], [place] [id number] Pcp:Aries Giles MD Subjective: * Chief Complaints: [...] Marmolejo DPM Date:? Generated for Dana moore/Puneet/Chris on:?12/08/2024 03:40 PM EDT
--- OUTSIDE RECORDS SUMMARY | 2024-12-08 15:40 | XMS_ITS ---
Author Organization [facility] Address [address] [place] [address] Care Team Providers Care Tailor Garment Fitter Name Role Phone Chan MEEHAN, Aries Primary Care Provider Kimberly Dixon [phone] Encounters Encounter Location Date Provider Diagnosis [facility] [address] [place] [address] 09/02/2024 Kimberly Marmolejo Plan Of Treatment No Information Progress Notes * Marissa MONTERODOB: 8 (89 yo F)Acc No.[id number]:09/02/2024 Progress Note Patient:?Marissa MONTERO Provider:?Kimberly Marmolejo DPM :1935???Age:88 Y???Sex:Female D ate:09/02/2024 Address:[address] [place], [place] [id number] Pcp:Aries Giles MD Subjective: * Chief Complaints: * ??? * Medical History:? Objective: * Vitals:? Assessment: Plan: * Treatment: * Images: * The named appointment provid er may or may not be the originator of this progress note, and it is not deemed complete until electronically signed by the appointment provider. Sign off status: Pending * Provider:?Kimberly Marmolejo DPM Date:? Generated for Adalbertoi oscar/Faalice/eTransmitting on:?12/08/2024 03:40 PM EDT
--- OUTSIDE RECORDS SUMMARY | 2024-12-08 15:40 | XMS_ITS | Patient Health Record ---
Author Organization [facility] Address [address] [place] [address] Care Team Providers Care Hedis Registered Nurse Rn Name Role Phone Aries Giles MD Primary Care Provider Kimberly Dixon Unavailable [phone] Allergies Allergen (clinical drug ingredient) Drug/Non Drug [...] Polyneuropathy due to type 2 diabetes mellitus ([id number]) Type 2 diabetes mellitus with diabetic polyneuropathy (E11.42) Active confirmed Vital Signs Blood pressure diastolic 64 mm Hg 06/03/2024 Height 5 ft 3 in in 06/03/2024 Blood pressure systolic 118 mm Hg 06/03/2024 Weight 169 lbs 06/03/2024 BMI 29.93 kg/m2 06/03/2024 Encounters Encounter Location Date Provider Diagnosis [address] [address] 02/23/2024 Kimberly Marmolejo Type 2 diabetes mellitus with diabetic polyneuropathy E11.42 and Tinea unguium B35.[address] [address] 06/03/2024 Kimberly Marmolejo Type 2 diabetes mellitus with diabetic polyneuropathy E11.42 ; Xerosis of skin L85.3 and Tinea unguium B35.[address] [address] 01/12/2024 Kimberly Marmolejo [address] [address] 08/31/2024 Kimberly Marmolejo [address] [address] 11/16/2024 Kimberly Marmolejo Assessments Encounter Date Diagnosis [...] Treatment Pending Test Test Name Order Date [id number] NAIL, 6 OR MORE 05/09/2013 [id number] NAIL, 6 OR MORE 12/15/2013 [id number] Plate 12/15/2013 [id number] Plate Each Additional Insurance Providers Payer Name Payer Address Payer Phone Subscriber Number Group Number Insured Name Patient Relationship to Insured Coverage Start Date Coverage End Date Medicare National [employer]t [employer] [address] [facility] [place] [address] [id number] Marissa Montero Self - patient is the insured [employer] [address] [place] [address] [id number] Marissa Montero Self - patient is the insured Medical (General) History Medical History History ICD Code Arthritis chicken pox measles eczema thyroid disorder pre type II diabetes Neuropathy TIA Cataracts Surgical History Surgery Date(Month/Year) appendectomy 1967 cataract surgery 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
--- OUTSIDE RECORDS SUMMARY | 2024-12-08 15:40 | XMS_ITS ---
Author Organization [facility] Address [address] [place] [address] Care Team Providers Care Mortgage Professional Name Role Phone Aries Giles MD Primary Care Provider Kimberly Dixon [phone] REASON FOR VISIT cx appt Encounters Encounter Location Date Provider Diagnosis [facility] [address] [place] [address] 11/16/2024 Kimberly Marmolejo Plan Of Treatment No Information Progress Notes * Lamonte MONTEROsumitDOB: 8 (89 yo F)Acc No.[id number]:11/16/2024 Patient:?Marissa MONTERO :1935???Age:89 Y???Sex:Female Address:[address] [place] [address] * true * Date:? Generated for Dana moore/Puneet/eTransmitting on:?12/08/2024 03:40 PM EDT
== END 2024-12-08 14:25 | disposition home or self-care (01) ==
LOC: HO.HMCH 13:11
PROVIDERS: PCP Internal Medicine
DX: I63.9 Cerebral infarction, unspecified (principal); I10 Essential (primary) hypertension; G47.30 Sleep apnea, unspecified; E78.5 Hyperlipidemia, unspecified; I65.29 Occlusion and stenosis of unspecified carotid artery; K21.9 Gastro-esophageal reflux disease without esophagitis; R73.02 Impaired glucose tolerance (oral); K59.00 Constipation, unspecified; E11.9 Type 2 diabetes mellitus without complications

== ENCOUNTER → 2024-12-08 13:11 | Outpatient (BNVA) | payer MEDICARE, SELFPAY | PROVIDERS: PCP Internal Medicine | DX: I63.9 Cerebral infarction, unspecified (principal); I10 Essential (primary) hypertension; E78.5 Hyperlipidemia, unspecified; G47.30 Sleep apnea, unspecified; K21.9 Gastro-esophageal reflux disease without esophagitis; R73.02 Impaired glucose tolerance (oral); K59.00 Constipation, unspecified | CPT/HCPCS: 83036; 99202 ==

== ENCOUNTER 2024-12-16 08:46 | Outpatient (AMB) | payer MEDICARE, SELFPAY ==
[2024-12-16 09:09] LABS: Prothrombin Time Whole Bld POC 17.2 sec (11.1-13.5); ~PT, ~INR - Anti Coag Clinic 1.4 (0.9-1.1)
--- NOTE | 2024-12-16 09:12 | MHC.OFFVISCO ---
Intake Intake Visit Reasons: Anticoagulation Allergies rosuvastatin Adverse Reaction (Intermediate, Verified 12/16/24 08:50) Weakness meloxicam Allergy (Intermediate, Uncoded 12/16/24 08:50) Nausea Medication List - Last Reconciled 12/16/24 by Lety Yusuf, RN ascorbic acid (vitamin C) mg PO DAILY aspirin 81 mg PO DAILY atenolol 12.5 mg PO DAILY cholecalciferol (vitamin D3) PO DAILY fluticasone propionate 50 mcg/actuation 1 spray intranasal DAILY PRN losartan 25 mg PO DAILY [omega 3 pt states 1 cap daily 500mg ] ipqfdqouudyox-kupesoyxfdixn-XN 5-325-200 mg (Mucinex Sinus-Max Severe Congestion Relief) 2 tabs PO Q4-6H PRN [REDS AND GREENS SUPPLEMENT 1 cap daily of each supplement ] warfarin 2.5 mg See Protocol PO DAILY Nursing Note pt comes to appt with son- ambulating with a walker, A+O x 3, pt appears more tiered - she is helping take care of her spouse who is on VNA services. Her spouse use to bring her to her appt - her family is not always able- request for VNA INR and med assist to PCP. INR ?1.4 out of therapeutic range Medications and supplements reviewed Patient status: she stated she had sever constipation few weeks ago and now taking colace daily prn- prior to relief she had tried several means of releaving constipation and finally had a large relief and maintaining regularity with colace - it is possible that it may have disrupted her INR in the process due change in her gut health. Medications or supplements: resumed her reds and greens supplements - also may affect INR Diet: good Denies any signs and symptoms of bleeding or clotting or unusual bruising Bleeding, bruising, clotting discussed Nutritional guidance given: avoid greens x 4 days Dose: 2.5mg today / 1.25mg sat sun 2.5 mg Thursday and recheck Thursday ( usual dose 2.5mg x 1 day/ 1.25mg x 6 days) F/U INR Date : 12/20/24 ?? Patient verbalizing understanding of instructions given with read back. Anti-Coag Initial Assessment Social Hx Patient Tobacco Use Status: Never used Tobacco alcohol intake: never Alcohol intake frequency: does not drink Coding Level of Care Code Est Patient Level 1 Diagnoses Current use of anticoagulant therapy Z79.01 Results AMB INR Fingerstick AMB INR Fingerstick 1.4 Last Edit by Lety Yusuf RN on 12/16/24 08:58 MANUAL ENTRY Assessment & Plan Assessment & Plan (1) Current use of anticoagulant therapy: Code(s): Z79.01 - half-way (current) use of anticoagulants Category: Medical Medications: New docusate sodium (Colace Clear) PO PRN
== END 2024-12-16 09:51 | disposition home or self-care (01) ==
LOC: HO.ACS 08:46
PROVIDERS: Visit Provider Internal Medicine Medical Oncology
DX: Z79.01 Long term (current) use of anticoagulants (principal)

== ENCOUNTER → 2024-12-16 08:46 | Outpatient (BNVA) | payer MEDICARE, SELFPAY | PROVIDERS: Visit Provider Internal Medicine Medical Oncology | DX: Z86.73 Personal history of transient ischemic attack (TIA), and cerebral infarction without residual deficits (principal); Z79.01 Long term (current) use of anticoagulants; Z51.81 Encounter for therapeutic drug level monitoring | CPT/HCPCS: 85610; 99211 ==

== ENCOUNTER → 2024-12-27 11:48 | Outpatient (BNVA) | payer MEDICARE, SELFPAY | PROVIDERS: Visit Provider Internal Medicine Medical Oncology ==

== ENCOUNTER → 2025-01-02 10:47 | Outpatient (BNVA) | payer MEDICARE, SELFPAY | PROVIDERS: Visit Provider Internal Medicine Medical Oncology | DX: Z13.89 Encounter for screening for other disorder (principal) ==

== ENCOUNTER 2025-01-05 08:54 | Emergency (ER) | payer MEDICARE, SELFPAY ==
--- NOTE | ~2025-01-05 | CT_ITS ---
EXAMINATION: CT HEAD WITHOUT CONTRAST CLINICAL INFORMATION: Severe headache, on Coumadin. COMPARISON: 08/26/2023, 05/07/2023. MRI brain 07/17/2021. TECHNIQUE: Contiguous axial imaging was performed from the skull base to vertex without intravenous administration of contrast. This CT examination was performed using dose optimization techniques as appropriate, variously including the following: *Automated exposure control *Adjustment of mA and/or kV according to patient size (this includes techniques or standardized protocols for targeted exams where dose is matched to indication/reason for exam; i.e. extremities or head) *Use of iterative reconstruction technique FINDINGS: There is no evidence of intracranial hemorrhage or extra-axial fluid collection. There is no mass effect, or edema. No CT evidence of acute territorial infarct. Ventricles, sulci, and cisterns are mildly diffusely prominent, in keeping with age-related cerebral and cerebellar volume loss. No hydrocephalus. No midline shift. Negative hyperdense MCA sign. Negative insular ribbon sign. Patchy periventricular and deep white matter hypoattenuation is consistent with mild to moderate small vessel ischemic changes. Old lacunar type infarcts in the anterior gangliocapsular regions, and bilateral cerebellar hemispheres. Dense calcification of the pineal, unchanged. Chronic small parenchymal 6 mm calcification abutting the right sylvian fissure, possibly related to a right MCA aneurysm. This is unchanged from multiple prior exams Mild atheromatous calcification of the bilateral carotid siphons and V4 segments vertebral arteries bilaterally. Globes and orbital contents image normally. No extracranial soft tissue abnormalities. Chronic opacification of the left sphenoid sinus. The paranasal sinuses, mastoid air cells, and tympanic cavities are otherwise normally aerated. No suspicious bony abnormalities. There are no acute fractures evident. CT/CT head/brain wo IV con IMPRESSION: 1. No acute intracranial abnormality. 2. Chronic changes as discussed. 3. 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 Electronically signed by: Mikael Go MD 01/05/2025 10:08 AM EDT
[2025-01-05 09:08] VITALS: BP 182/76; PULSE 60; RESP 14; TEMP 36.1; O2SAT 100; BMI 28.8
--- NOTE | 2025-01-05 09:14 | ECG_ITS ---
Test Reason : fall Blood Pressure : */* mmHG Vent. Rate : 56 BPM Atrial Rate : 56 BPM P-R Int : 200 ms QRS Dur : 100 ms QT Int : 464 ms P-R-T Axes : 49 -28 32 degrees QTcB Int : 447 ms Sinus bradycardia Minimal voltage criteria for LVH, may be normal variant ( [place]shorn product ) Cannot rule out Anterior infarct (cited on or before 07-May-2023) Abnormal ECG When compared with ECG of 07-May-2023 07:36, No significant change was found Referred By: Generic ED Physician Electronically Signed By: ABEL PEPE MD
[2025-01-05 09:26] LABS: MANUAL DIFF FLAG NO
[2025-01-05 09:32] LABS: Basophils Absolute Auto 0.1 X10*3/uL (0.0-0.2); Basophils Percent Auto 0.7 % (0-2); Eosinophils Absolute Auto 0.1 X10*3/uL (0.0-0.4); Eosinophils Percent Auto 1.3 % (0-4); Hematocrit 41.4 % (37.0-47.0); Hemoglobin 14.1 g/dl (12.0-16.0); Imm Gran Abs Auto 0.03 X10*3/uL (0.00-0.03); Imm Gran Pct Auto 0.4 % (0.0-0.4); Lymphocytes Absolute Auto 1.9 X10*3/uL (1.2-4.9); Lymphocytes Percent Auto 28.4 % (20-40); Mean Corpuscular HGB Conc 34.1 g/dl (31.0-35.0); Mean Corpuscular Hemoglobin 32.1 pg (27.0-33.0); Mean Corpuscular Volume 94.3 fL (80.0-98.0); Mean Platelet Volume 9.6 fL (9.4-12.3); Monocytes Absolute Auto 0.7 X10*3/uL (0.1-1.2); Monocytes Percent Auto 10.5 % (2-11); Neutrophils Absolute Auto 3.9 x10*3/uL (2.0-8.3); Neutrophils Percent Auto 58.7 % (45-73); Platelet Count 155 X10*3/uL (160-400); Red Blood Count 4.39 X10*6/uL (4.20-5.50); Red Cell Distribution Width 11.9 % (11.0-16.0); White Blood Count 6.7 X10*3/uL (4.8-10.8)
[2025-01-05 09:35] LABS: INTERNATIONAL NORM RATIO 2.3 (0.9-1.1); Prothrombin Time 26.7 SEC (10.9-12.4)
[2025-01-05 09:46] LABS: Troponin-I High Sensitivity 8.3 ng/L (<3.5-17.0)
--- NOTE | 2025-01-05 09:47 | ED.GENADULT ---
HPI - General Adult General Chief complaint: General Medical Stated complaint: high BP Time Seen by Provider: 01/05/25 09:19 Source: patient Mode of arrival: ambulatory Limitations: no limitations History of Present Illness ED Provider: MY KRAMER narrative: 89 year old female with PMHx of CVA-stroke, HTN, HLD, carotid stenosis, GERD, on coumadin presents to the ED due to headache. She states headache started last night (01/04) around 9pm where pain is concentrated over the right eye. She states the headache quality is constant and throbbing and has increased in intensity since last night. She denies fall, LOC, headstrike, nausea, vomiting, visual changes, facial paralysis, speech changes, chest pain SOB. NO ttp or swelling of temporal artery. She took her regular BP meds this AM MD complaint: headache Onset (ago): hour(s) (last night 9pm ) Location: head (over R eye ) Radiation: non-radiation Severity: severe Quality: aching and constant Pain Consistency: constant Relieving factors: none Exacerbating factors: none and movement Associated symptoms: denies other symptoms Related Data Home Medications ?Medication ?Instructions ?Recorded ?Confirmed losartan 25 mg tablet 25 mg PO DAILY 07/17/21 01/02/25 aspirin 81 mg capsule 81 mg PO DAILY 10/29/22 01/02/25 REDS AND GREENS SUPPLEMENT PO 07/08/23 01/02/25 omega 3 PO 07/08/23 01/02/25 ascorbic acid (vitamin C) 500 mg mg PO DAILY 01/15/24 01/02/25 capsule cholecalciferol (vitamin D3) PO DAILY 01/15/24 01/02/25 fluticasone propionate 50 1 spray intranasal DAILY PRN 01/15/24 01/02/25 mcg/actuation nasal spray,suspension brimbotrulwqs-egntupazmckcf-cokvkdlwvsm 2 tab PO Q4-6H PRN 01/15/24 01/02/25 5 mg-325 mg-200 mg tablet (Mucinex Sinus-Max Severe Congestion Relief) atenolol 25 mg tablet 12.5 mg PO DAILY 12/08/24 01/02/25 docusate sodium [Colace Clear] PO PRN 12/16/24 01/02/25 Previous Rx's ?Medication ?Instructions ?Recorded warfarin 2.5 mg tablet 2.5 mg PO DAILY #90 tabs 06/22/20 Allergies Allergy/AdvReac Type Severity Reaction Status Date / Time rosuvastatin AdvReac Intermediate Weakness Verified 01/05/25 09:12 meloxicam Allergy Intermediate Nausea Uncoded 01/05/25 09:12 Review of Systems Review of Systems: Constitutional : No Fever, No Chills, No Fatigue ENT/Mouth : No sore throat, No Rhinorrhea Eyes: No Eye Pain, No Swelling, No Redness Cardiovascular : No Chest Pain, No SOB, No Dyspnea on Exertion Respiratory : No Cough, No Sputum Gastrointestinal : No Nausea, No Vomiting, No Diarrhea, No abdominal Pain Genitourinary : No Dysuria, No Urinary Frequency, No Hematuria, Musculoskeletal : No joint pain, No Myalgias, No Joint Swelling Skin : No Skin Lesions, No rash Neuro : No Weakness, No Numbness, No Dizziness, no visual changes, no facial drooping, no speech changes, positive Headache Psych : No Anxiety/Panic, No Depression Heme/Lymph: No Bruising, No Bleeding,No Lymphadenopathy Endocrine : No Polyuria, No Polydipsia All other systems reviewed and are negative Yes all other systems are reviewed and are negative COUNTS INCLUDE 234 BEDS AT THE [facility] Past Medical History Attestation statement: The following information was validated with the patient. Source: old records reviewed Medical History Subarachnoid hemorrhage Sleep apnea HLD (hyperlipidemia) HTN (hypertension) Cataract TIA (transient ischemic attack) Surgical History History of cataract surgery Hx of appendectomy Social History Social History Housing: House Alcohol intake: never Patient Tobacco Use Status: Never used Tobacco e-Cigarette/Vaping Use: Never Used Second Hand Smoke Exposure: No Advance Directives: No Advance Directives Information Provided: Yes service: No Current occupational status: retired Cognitive needs: Yes (walker) Hearing needs: No Vision needs: Yes (Glasses) Physical Exam ED Vital Signs: Vital Signs - 24 hr 01/05/25 09:08 01/05/25 10:36 Temperature 97 F Pulse Rate 60 55 Respiratory Rate 14 20 Blood Pressure 182/76 H 169/57 H Pulse Oximetry 100 99 Oxygen Delivery Method Room Air Room Air BMI result Body Mass Index 28.8 Appearance: Alert. Oriented X3. No acute distress. Eyes: Pupils equal, round and reactive to light. ENT: Pharynx normal. Neck: Normal inspection. Neck supple. CVS: Normal heart rate and rhythm. Pulses normal. Respiratory: No respiratory distress. Breath sounds normal. Abdomen: Soft and nontender. Skin: Skin warm and dry. Normal skin color. Normal skin turgor. Extremities: No lower extremity edema. No calf ttp Neuro: Oriented X 3. No motor deficit. No sensory deficit. CN2-12 intact NIH Stroke Scale Internal: Initial- Upon Arrival Level of Consciousness: Alert Level of Consciousness Questions: Answers both questions correctly Level of Consciousness Commands: Performs both tasks correctly Best Gaze: Normal Visual: No visual loss Facial Palsy: Normal Motor Arm (Right): No drift Motor Arm (Left): No drift Motor Leg (Right): No drift Motor Leg (Left): No drift Limb Ataxia: Absent Sensory: Normal Best Language: No aphasia Dysarthia: Normal Extinction and Inattention: No abnormality Score: 0 Medications Administered Discontinued Medications Generic Name Dose Route Start Last Admin Trade Name Silvano PRN Reason Stop Dose Admin Acetaminophen 325 mg 01/05/25 09:41 01/05/25 09:57 Acetaminophen 325 Mg Tablet PO 01/05/25 09:42 325 mg ONCE ONE Administration Morphine Sulfate 2 mg 01/05/25 09:41 01/05/25 09:57 Morphine Sulfate 2 Mg/Ml Cartridge IVPUSH 01/05/25 09:42 2 mg ONCE ONE Administration Protocol Ondansetron HCl 4 mg 01/05/25 09:41 01/05/25 09:57 Ondansetron Odt 4 Mg Tab.Rapdis TRANSLINGU 01/05/25 09:42 4 mg ONCE ONE Administration Medical Decision Making Medical Decision Making [facility] Narrative: 89 year old female with PMHx of CVA-stroke, HTN, HLD, carotid stenosis, GERD, on coumadin here with c/o atraumatic headache - she has no neuro deficits no ttp along temporal artery at this time will obtain labs, stat head CT for ICH and treat pain first as she does have hx of headaches post stroke. If no response will treat BP. She has no fevers to suggest APPR[employer]IS[employer] infection Differential Diagnosis Differential Diagnoses: The differential diagnosis associated with the presentation includes ICH, headache, HTN Admission/Observation Consideration of admission/observation: Escalation of care including admission/observation considered INR 2.3 no temporal artery ttp ESR under 20 CT head normal BP coming down headache improved patient is under a lot of stress at home and not sleeping Lab Data [facility] Lab Attestation statement: I reviewed the patient's lab results. 01/05/25 09:22 01/05/25 09:22 Labs: Lab Results 01/05/25 Range/Units 09:22 WBC 6.7 (4.8-10.8) X10*3/uL RBC 4.39 (4.20-5.50) X10*6/uL Hgb 14.1 (12.0-16.0) g/dl Hct 41.4 (37.0-47.0) % MCV 94.3 (80.0-98.0) fL MCH 32.1 (27.0-33.0) pg MCHC 34.1 (31.0-35.0) g/dl RDW 11.9 (11.0-16.0) % Plt Count 155 L (160-400) X10*3/uL MPV 9.6 (9.4-12.3) fL Immature Gran % (Auto) 0.4 (0.0-0.4) % Neut % (Auto) 58.7 (45-73) % Lymph % (Auto) 28.4 (20-40) % Lamb % (Auto) 10.5 (2-11) % Eos % (Auto) 1.3 (0-4) % Baso % (Auto) 0.7 (0-2) % Lymph # (Auto) 1.9 (1.2-4.9) X10*3/uL Lamb # (Auto) 0.7 (0.1-1.2) X10*3/uL Eos # (Auto) 0.1 (0.0-0.4) X10*3/uL Baso # (Auto) 0.1 (0.0-0.2) X10*3/uL Abs Immat Gran (auto) 0.03 (0.00-0.03) X10*3/uL Absolute Neuts (auto) 3.9 (2.0-8.3) x10*3/uL Absolute Nucleated RBC 0.000 (0.0-0.012) X10*3/uL Nucleated RBC % (auto) 0.0 (0.0-0.2) /100WBC ESR 12 (0-20) MM/HR PT 26.7 H (10.9-12.4) SEC INR 2.3 H (0.9-1.1) Sodium 142 (135-145) mmol/L Potassium 4.0 (3.3-5.1) mmol/L Chloride 107 (96-108) mmol/L Carbon Dioxide 27 (22-29) mmol/L Anion Gap 12 (12-20) BUN 17 H (9-16) mg/dL Creatinine 0.69 (0.5-1.4) mg/dL Estim Creat Clear Calc 57.3 Estimated GFR > 60 Random Glucose 106 (60-115) mg/dL Calcium 9.8 (8.4-10.2) mg/dL Total Bilirubin 0.9 (0.0-1.0) mg/dL AST 23 (5-31) U/L ALT 11 (0-31) U/L Troponin I High Sens 8.3 D (<3.5-17.0) ng/L Total Protein 7.0 (6.5-8.0) g/dL Albumin 4.2 (3.5-5.0) g/dL Independent Interpretation I performed an independent interpretation of an: EKG and CT Scan (no ICH) Interpretation: Rate: 56 Rhythm: sinus bradycardia [place]: left, LVH Normal P waves. Normal YESSY. Normal QRS complex. ST T wave : normal no ANISH qTC: 447 prior studies: no acute ischemia The study has been interpreted contemporaneously by me. . Radiology Impression Discussion of test interpretation with radiology: I have reviewed the radiologist's reading. Independent Historian Clinical information obtained from an independent historian. History obtained from or confirmed by: Other (family) External Record Review External record reviewed: Outpatient record Discharge Plan Discharge Clinical Impression: HTN (hypertension), Acute headache Instructions: Chronic Hypertension (ED), Acute Headache (DC) Additional Instructions: labs, EKG and CT scan shows no acute findings INR 2.3 return for worsening pain, fevers, confusion, increased blood pressure over 170 with symptoms, or any other concerns. Prescriptions: No Action warfarin 2.5 mg tablet 2.5 mg PO DAILY Qty: 90 0RF Protocol: Dose Management Condition: Thursday (Week One) Dose/Route: 1.25 mg Instruction: 0.5 x 2.5 mg tablets Condition: Thursday Dose/Route: 3.75 mg Instruction: 1.5 x 2.5 mg tablets Condition: Thursday Dose/Route: 3.75 mg Instruction: 1.5 x 2.5 mg tablets Condition: Thursday Dose/Route: 1.25 mg Instruction: 0.5 x 2.5 mg tablets Condition: Dose/Route: 1.25 mg Instruction: 0.5 x 2.5 mg tablets Condition: Thursday Dose/Route: 1.25 mg Instruction: 0.5 x 2.5 mg tablets Condition: Thursday Dose/Route: 1.25 mg Instruction: 0.5 x 2.5 mg tablets Condition: Thursday (Week Two) Dose/Route: 1.25 mg Instruction: 0.5 x 2.5 mg tablets Condition: Thursday Dose/Route: 2.5 mg Instruction: 1 x 2.5 mg tablet Condition: Thursday Dose/Route: 1.25 mg Instruction: 0.5 x 2.5 mg tablets Condition: Thursday Dose/Route: 1.25 mg Instruction: 0.5 x 2.5 mg tablets Condition: Dose/Route: 1.25 mg Instruction: 0.5 x 2.5 mg tablets Condition: Thursday Dose/Route: 1.25 mg Instruction: 0.5 x 2.5 mg tablets Condition: Thursday Dose/Route: 1.25 mg Instruction: 0.5 x 2.5 mg tablets Protocol Text: Adjustment Start Date: Thursday01/02/25 INR Value: 1.6 INR Date: 01/02/25 Recheck Date: 01/09/25 atenolol 25 mg tablet 12.5 mg PO DAILY losartan 25 mg tablet 25 mg PO DAILY aspirin 81 mg capsule 81 mg PO DAILY REDS AND GREENS SUPPLEMENT PO Rx Instructions: 1 cap daily of each supplement omega 3 PO Rx Instructions: pt states 1 cap daily 500mg Mucinex Sinus-Max Sev Congestn 5-325-200 mg tablet 2 tab PO Q4-6H PRN ascorbic acid (vitamin C) 500 mg capsule PO DAILY cholecalciferol (vitamin D3) PO DAILY fluticasone propionate 50 mcg/actuation spray,suspension 1 spray intranasal DAILY PRN Rx Instructions: administer into each nostril docusate sodium [Colace Clear] PO PRN Print Language: Kazakh
[2025-01-05] MEDS: Morphine Sulfate 2 MG/ML CARTRIDGE IVPUSH (09:57)
[2025-01-05] MEDS: Acetaminophen 325 MG TABLET PO (09:57)
[2025-01-05] MEDS: Ondansetron ODT 4 MG TAB.RAPDIS TRANSLINGU (09:57)
[2025-01-05 10:08] LABS: Alanine Aminotransferase 11 U/L (0-31); Albumin Level 4.2 g/dL (3.5-5.0); Anion Gap 12 (12-20); Aspartate Amino Transferase 23 U/L (5-31); Bilirubin Total 0.9 mg/dL (0.0-1.0); Blood Urea Nitrogen 17 mg/dL (9-16); Calcium 9.8 mg/dL (8.4-10.2); Carbon Dioxide 27 mmol/L (22-29); Chloride 107 mmol/L (96-108); Creatinine Clr Calc Pharmacy 57.3; Estimated Glomerular Filt Rate > 60; Glucose Random 106 mg/dL (60-115); Sodium 142 mmol/L (135-145)
[2025-01-05 10:32] LABS: Erythrocyte Sedimentation Rate 12 MM/HR (0-20)
[2025-01-05 10:36] VITALS: BP 169/57; PULSE 55; RESP 20; O2SAT 99
[2025-01-05 11:18] LABS: Alkaline Phosphatase 73 U/L (39-117)
[2025-01-05 12:28] VITALS: BP 146/61; PULSE 55; RESP 14; TEMP 36.1; O2SAT 95
[2025-01-05 13:37] VITALS: BP 146/61; PULSE 55; RESP 14; TEMP 36.1; O2SAT 95
== END 2025-01-05 13:38 | disposition home or self-care (01) ==
PROVIDERS: Emergency Provider Emergency Medicine
DX: I10 Essential (primary) hypertension (principal); R51.9 Headache, unspecified; R00.1 Bradycardia, unspecified; E78.5 Hyperlipidemia, unspecified; R29.700 NIHSS score 0; Z86.73 Personal history of transient ischemic attack (TIA), and cerebral infarction without residual deficits; Z79.82 Long term (current) use of aspirin; Z79.01 Long term (current) use of anticoagulants
CPT/HCPCS: 36415; 70450; 80053; 84484; 85025; 85610; 85652; 93005; 96374; 99284; J2270

== ENCOUNTER → 2025-01-05 09:14 | Outpatient (BNV) | payer MEDICARE, SELFPAY | PROVIDERS: Emergency Provider Emergency Medicine; Visit Provider Internal Medicine Cardiovascular Disease | DX: R00.1 Bradycardia, unspecified (principal) | CPT/HCPCS: 93010 ==

== ENCOUNTER → 2025-01-05 09:29 | Outpatient (BNV) | payer MEDICARE, SELFPAY | PROVIDERS: Emergency Provider Emergency Medicine; Visit Provider Radiology Diagnostic Radiology | DX: I25.84 Coronary atherosclerosis due to calcified coronary lesion (principal) | CPT/HCPCS: 70450 ==

== ENCOUNTER 2025-01-17 09:00 | Outpatient (REF) | payer MEDICARE, SELFPAY ==
[2025-01-17 09:35] LABS: MANUAL DIFF FLAG NO
--- OUTSIDE RECORDS SUMMARY | 2025-01-17 09:35 | XMS_ITS ---
Author Organization [facility] Address [address] [place] [address] Care Team Providers Care Front Elevator Operator Name Role Phone Aries Giles MD Primary Care Provider Kimberly Dixon Unavailable [phone] Allergies Allergen (clinical drug ingredient) Drug/Non Drug [...] Active Encounters Encounter Location Date Provider Diagnosis [facility] [address] [place] [address] 11/18/2024 Kimberly Marmolejo Plan Of Treatment No Information Progress Notes * Marissa MONTERODOB: 8 (89 yo F)Acc No.[id number]:11/18/2024 Progress Note Patient:?Marissa MONTERO Provider:?Kimberly Marmolejo DPM :1935???Age:89 Y???Sex:Female D ate:11/18/2024 Address:[address] [place], [place] [id number] Pcp:Aries Giles MD Subjective: * Chief Complaints: [...] Marmolejo DPM Date:? Generated for Dana moore/Puneet/Chris on:?01/17/2025 09:35 AM EDT
--- OUTSIDE RECORDS SUMMARY | 2025-01-17 09:35 | XMS_ITS ---
Author Organization [facility] Address [address] [place] [address] Care Team Providers Care Spraying Machine Operator Name Role Phone Chan MEEHAN, Aries Primary Care Provider Kimberly Dixon [phone] Encounters Encounter Location Date Provider Diagnosis [facility] [address] [place] [address] 09/02/2024 Kimberly Marmolejo Plan Of Treatment No Information Progress Notes * Marissa MONTERODOB: 8 (89 yo F)Acc No.[id number]:09/02/2024 Progress Note Patient:?Marissa MONTERO Provider:?Kimberly Marmolejo DPM :1935???Age:88 Y???Sex:Female D ate:09/02/2024 Address:[address] [place], [place] [id number] Pcp:Aries Giles MD Subjective: * Chief Complaints: * ??? * Medical History:? Objective: * Vitals:? Assessment: Plan: * Treatment: * Images: * The named appointment provid er may or may not be the originator of this progress note, and it is not deemed complete until electronically signed by the appointment provider. Sign off status: Pending * Provider:?Kimberly Marmolejo DPM Date:? Generated for Adalbertoi oscar/Puneet/eTransmitting on:?01/17/2025 09:35 AM EDT
--- OUTSIDE RECORDS SUMMARY | 2025-01-17 09:36 | XMS_ITS ---
Author Organization [facility] Address [address] [place] [address] Care Team Providers Care Agriculture Worker Name Role Phone Aries Giles MD Primary Care Provider Kimberly Dixon [phone] REASON FOR VISIT cx appt Encounters Encounter Location Date Provider Diagnosis [facility] [address] [place] [address] 11/16/2024 Kimberly Marmolejo Plan Of Treatment No Information Progress Notes * Lamonte MONTEROsumitDOB: 8 (89 yo F)Acc No.[id number]:11/16/2024 Patient:?Marissa MONTERO :1935???Age:89 Y???Sex:Female Address:[address] [place] [address] * true * Date:? Generated for Dana moore/Puneet/eTransmitting on:?01/17/2025 09:35 AM EDT
--- OUTSIDE RECORDS SUMMARY | 2025-01-17 09:36 | XMS_ITS | Patient Health Record ---
Author Organization [facility] ryan Beggs Address [address] [place] [address] Care Team Providers Care Automatic Coil Machine Operator Name Role Phone Aries Giles MD Primary Care Provider Kimberly Dixon Unavailable [phone] Allergies Allergen (clinical drug ingredient) Drug/Non Drug Allergy documented on EMR Reaction Allergy Type Onset Date Status Adhesive rash Allergy Active lisinopril Lisinopril coughing Drug Allergy Activ e meloxicam Meloxicam Unknown Drug Allergy Active Reason For Referral No Information Medications Medication [...] Polyneuropathy due to type 2 diabetes mellitus ([id number]) Type 2 diabetes mellitus with diabetic polyneuropathy (E11.42) Active confirmed Vital Signs Blood pressure diastolic 64 mm Hg 06/03/2024 Height 5 ft 3 in in 06/03/2024 Blood pressure systolic 118 mm Hg 06/03/2024 Weight 169 lbs 06/03/2024 BMI 29.93 kg/m2 06/03/2024 Encounters Encounter Location Date Provider Diagnosis [address] [address] 02/23/2024 Kimberly Marmolejo Type 2 diabetes mellitus with diabetic polyneuropathy E11.42 and Tinea unguium B35.[address] [address] 06/03/2024 Kimberly Marmolejo Type 2 diabetes mellitus with diabetic polyneuropathy E11.42 ; Xerosis of skin L85.3 and Tinea unguium B35.[address] [address] 08/31/2024 Kimberly Marmolejo [address] [address] 11/16/2024 Kimberly Marmolejo Assessments Encounter Date Diagnosis [...] Treatment Pending Test Test Name Order Date [id number] NAIL, 6 OR MORE 05/09/2013 [id number] NAIL, 6 OR MORE 12/15/2013 [id number] Plate 12/15/2013 [id number] Plate Each Additional Insurance Providers Payer Name Payer Address Payer Phone Subscriber Number Group Number Insured Name Patient Relationship to Insured Coverage Start Date Coverage End Date Medicare National [employer] [address] [place] [address] [id number] Marissa Montero Self - patient is the insured [employer] [address] [place] [address] [id number] Marissa Motnero Self - patient is the insured Medical (General) History Medical History History ICD Code Arthritis chicken pox measles eczema thyroid disorder pre type II diabetes Neuropathy TIA Cataracts Surgical History Surgery Date(Month/Year) appendectomy 1967 cataract surgery D 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
[2025-01-17 09:40] LABS: Basophils Absolute Auto 0.1 X10*3/uL (0.0-0.2); Basophils Percent Auto 0.8 % (0-2); Eosinophils Absolute Auto 0.1 X10*3/uL (0.0-0.4); Eosinophils Percent Auto 1.5 % (0-4); Hematocrit 42.4 % (37.0-47.0); Hemoglobin 14.3 g/dl (12.0-16.0); Imm Gran Abs Auto 0.02 X10*3/uL (0.00-0.03); Imm Gran Pct Auto 0.3 % (0.0-0.4); Lymphocytes Absolute Auto 1.5 X10*3/uL (1.2-4.9); Lymphocytes Percent Auto 22.8 % (20-40); Mean Corpuscular HGB Conc 33.7 g/dl (31.0-35.0); Mean Corpuscular Hemoglobin 32.1 pg (27.0-33.0); Mean Corpuscular Volume 95.1 fL (80.0-98.0); Mean Platelet Volume 9.5 fL (9.4-12.3); Monocytes Absolute Auto 0.7 X10*3/uL (0.1-1.2); Monocytes Percent Auto 11.3 % (2-11); Neutrophils Absolute Auto 4.1 x10*3/uL (2.0-8.3); Neutrophils Percent Auto 63.3 % (45-73); Platelet Count 147 X10*3/uL (160-400); Red Blood Count 4.46 X10*6/uL (4.20-5.50); Red Cell Distribution Width 12.3 % (11.0-16.0); White Blood Count 6.5 X10*3/uL (4.8-10.8)
[2025-01-17 10:27] LABS: Alanine Aminotransferase 12 U/L (0-31); Albumin Level 4.3 g/dL (3.5-5.0); Alkaline Phosphatase 72 U/L (39-117); Anion Gap 11 (12-20); Aspartate Amino Transferase 21 U/L (5-31); Bilirubin Total 0.9 mg/dL (0.0-1.0); Blood Urea Nitrogen 12 mg/dL (9-16); Calcium 9.6 mg/dL (8.4-10.2); Carbon Dioxide 29 mmol/L (22-29); Chloride 107 mmol/L (96-108); Cholesterol 254 mg/dL (<200); Estimated Glomerular Filt Rate > 60; Glucose Random 103 mg/dL (60-115); HDL Cholesterol 63 mg/dL (>40); LDL Cholesterol Calculated 168 mg/dL (<100); Potassium 4.2 mmol/L (3.3-5.1); Sodium 143 mmol/L (135-145); Total Protein 7.1 g/dL (6.5-8.0); Triglycerides 115 mg/dL (<150)
[2025-01-17 10:35] LABS: Free T4 (Free Thyroxine) 1.03 ng/dL (0.71-1.85); Vitamin D 25-OH Total 41.8 ng/mL (>30)
[2025-01-17 11:02] LABS: Folate 8.3 ng/mL (> or = 4.0); Vitamin B12 231 pg/mL (200-900)
== END 2025-01-17 09:01 | disposition home or self-care (01) ==
LOC: HO.LAB 09:00
DX: Z00.00 Encounter for general adult medical examination without abnormal findings (principal); E78.00 Pure hypercholesterolemia, unspecified; R35.89 Other polyuria; Z79.01 Long term (current) use of anticoagulants
CPT/HCPCS: 36415; 80053; 80061; 81003; 82306; 82607; 82746; 84439; 84443; 85025; 85610; 99211

== ENCOUNTER 2025-01-17 09:04 | Outpatient (AMB) | payer MEDICARE, SELFPAY ==
[2025-01-17 09:13] LABS: Prothrombin Time Whole Bld POC 25.6 sec (11.1-13.5); ~PT, ~INR - Anti Coag Clinic 2.1 (0.9-1.1)
--- NOTE | 2025-01-17 09:21 | MHC.OFFVISCO ---
Intake Intake Visit Reasons: Anticoagulation Allergies rosuvastatin Adverse Reaction (Intermediate, Verified 01/05/25 09:12) Weakness meloxicam Allergy (Intermediate, Uncoded 01/05/25 09:12) Nausea Medication List - Last Reconciled 01/17/25 by Bev Laws, RN ascorbic acid (vitamin C) mg PO DAILY aspirin 81 mg PO DAILY atenolol 12.5 mg PO DAILY cholecalciferol (vitamin D3) PO DAILY docusate sodium (Colace Clear) PO PRN fluticasone propionate 50 mcg/actuation 1 spray intranasal DAILY PRN losartan 25 mg PO DAILY [omega 3 pt states 1 cap daily 500mg ] cicerngonghhi-equhltdgcught-EJ 5-325-200 mg (Mucinex Sinus-Max Severe Congestion Relief) 2 tabs PO Q4-6H PRN [REDS AND GREENS SUPPLEMENT 1 cap daily of each supplement ] warfarin 2.5 mg See Protocol PO DAILY Nursing Note INR: 2.1 in therapeutic range 2-3 Medications and supplements reviewed No changes in health, diet, medications, or supplements, Denies any signs and symptoms of bleeding or bruising or clotting. Bleeding, bruising, clotting discussed Nutritional guidance given Dose: increase today's dose to 2.5mg (1.25mg) then resume usual dose of 1.25mg X 6 days and 2.5mg X 1 day (Mon) F/U INR: 01/30/25 Patient verbalizes understanding of instructions given Anti-Coag Initial Assessment Social Hx Patient Tobacco Use Status: Never used Tobacco alcohol intake: never Alcohol intake frequency: does not drink Coding Level of Care Code Est Patient Level 1 Diagnoses Current use of anticoagulant therapy Z79.01 Results AMB INR Fingerstick AMB INR Fingerstick 2.1 Last Edit by Bev Laws, RN on 01/17/25 09:14 interface delay Assessment & Plan Assessment & Plan (1) Current use of anticoagulant therapy: Code(s): Z79.01 - nursing home (current) use of anticoagulants Category: Medical
== END 2025-01-17 09:23 | disposition home or self-care (01) ==
LOC: HO.ACS 09:04
PROVIDERS: Visit Provider Internal Medicine Medical Oncology
DX: Z79.01 Long term (current) use of anticoagulants (principal)

== ENCOUNTER 2025-01-30 09:43 | Outpatient (AMB) | payer MEDICARE, SELFPAY ==
[2025-01-30 10:03] LABS: Prothrombin Time Whole Bld POC 25.4 sec (11.1-13.5); ~PT, ~INR - Anti Coag Clinic 2.1 (0.9-1.1)
--- NOTE | 2025-01-30 10:15 | MHC.OFFVISCO ---
Intake Intake Visit Reasons: Anticoagulation Allergies rosuvastatin Adverse Reaction (Intermediate, Verified 01/30/25 09:55) Weakness meloxicam Allergy (Intermediate, Uncoded 01/30/25 09:55) Nausea Medication List - Last Reconciled 01/30/25 by Lety Yusuf RN ascorbic acid (vitamin C) mg PO DAILY aspirin 81 mg PO DAILY atenolol 12.5 mg PO DAILY cholecalciferol (vitamin D3) PO DAILY docusate sodium (Colace Clear) PO PRN ezetimibe 10 mg PO DAILY fluticasone propionate 50 mcg/actuation 1 spray intranasal DAILY PRN losartan 25 mg PO DAILY [omega 3 pt states 1 cap daily 500mg ] flokvaxsdcbdq-grxzelmmfgcgv-TU 5-325-200 mg (Mucinex Sinus-Max Severe Congestion Relief) 2 tabs PO Q4-6H PRN [REDS AND GREENS SUPPLEMENT 1 cap daily of each supplement ] warfarin 2.5 mg See Protocol PO DAILY Nursing Note pt came with son via walker - A+O x 3 - has neurology appt this week- spouse has increased dementia - she has home health care at home for him INR: 2.1 in therapeutic range Medications and supplements reviewed - started esetimbe low dose end of December which can raise the INR - delayed on set Denies any signs and symptoms of bleeding or bruising or clotting. Bleeding, bruising, clotting discussed Nutritional guidance given - eat a mix of fruits and vegetables Dose: keep same dose due to new cholesterol med 2.5mg thursday/1.25mg x 6days F/U INR: 1 week due to cholesterol med 02/07/25 Patient verbalizes understanding of instructions given Anti-Coag Initial Assessment Social Hx Patient Tobacco Use Status: Never used Tobacco alcohol intake: never Alcohol intake frequency: does not drink Questionnaires HAS-BLED Does the patient had uncontrolled Hypertension?: No Does the patient have renal disease?: No Does the patient have liver disease?: No Does the patient have a history of stroke?: Yes Has the patient had major bleeding or predisposition to bleeding?: Yes Does the patient have labile INRs?: Yes Is the patient over 65 years of age?: Yes Is the patient on medications that gives them a predisposition to bleeding?: Yes Does the patient use alcohol?: No HAS-BLED Score: 5 CHADSVASC Age: 75 or over Gender: Female Does the patient have a history of CHF?: No Does the patient have a history of Hypertension?: Yes Does the patient have a history of Stroke/TIA/Thromboembolism?: Yes Does the patient have a history of Vascular Disease (prior GA, PAD or aortic plaque)?: Yes Does the patient have a history of Diabetes?: Yes CHADS VACS Score: 8 Sheng Prediction Score Rsk VTE Active Cancer: No Previous VTE, excluding superficial vein thrombosis: No Reduced mobility: No Already known Thrombophilic Condition: No With-in last month Trauma and/or Surgery: No Elderly 70 year or older: Yes Heart and/or Respiratory Failure: No Acute Myocardial infarction and/or Ischemic Stroke: Yes Acute Infection and/or Rheumatologic Disorder: No Obesity (BMI 30 or greater): No Ongoing Hormonal Treatment: No Score: 2 Sheng Score less than 4; Low Risk of VTE Sheng Score 4 or greater; High Risk of VTE Coding Level of Care Code Est Patient Level 1 Diagnoses Current use of anticoagulant therapy Z79.01 Assessment & Plan Assessment & Plan (1) Current use of anticoagulant therapy: Code(s): Z79.01 - assisted (current) use of anticoagulants Category: Medical
== END 2025-01-30 10:20 | disposition home or self-care (01) ==
LOC: HO.ACS 09:43
PROVIDERS: Visit Provider Internal Medicine Medical Oncology
DX: Z79.01 Long term (current) use of anticoagulants (principal)

== ENCOUNTER → 2025-01-30 09:43 | Outpatient (BNVA) | payer MEDICARE, SELFPAY | PROVIDERS: Visit Provider Internal Medicine Medical Oncology | DX: Z86.73 Personal history of transient ischemic attack (TIA), and cerebral infarction without residual deficits (principal); Z79.01 Long term (current) use of anticoagulants; Z51.81 Encounter for therapeutic drug level monitoring | CPT/HCPCS: 85610; 99211 ==

== ENCOUNTER 2025-02-06 12:45 | Outpatient (REF) | payer MEDICARE, SELFPAY ==
[2025-02-07 11:00] LABS: Appearance Urine Clear; Color Urine Yellow; Glucose Urine UA Negative (Negative); Leukocyte Esterase Urine Moderate (2+) (Negative); Nitrite Urine Negative (Negative); PH 6.5 (5.0-9.0); UMIC TRIGGER UACC YES; Urine Blood Negative (Negative); Urine Ketones Trace mg/dL (Negative); Urine Protein Trace mg/dL (Neg-Trace)
[2025-02-07 11:05] LABS: Bacteria Urine 4+ (None Seen); Hyaline Casts Urine 0-2 /LPF (0-2); RBC Urine 0-2 /HPF (0-2); Squamous Epithelial Cell Urine 0-2 /HPF (0-2); UACC Culture Trigger YES; WBC Urine >50 /HPF (0-5)
== END 2025-02-06 12:46 | disposition home or self-care (01) ==
LOC: HO.LNP 12:45
DX: R35.89 Other polyuria (principal)
CPT/HCPCS: 81001; 87086; 87088; 87186

== ENCOUNTER 2025-02-07 09:05 | Outpatient (AMB) | payer MEDICARE, SELFPAY ==
[2025-02-07 09:14] LABS: Prothrombin Time Whole Bld POC 23.5 sec (11.1-13.5)
--- NOTE | 2025-02-07 09:28 | MHC.OFFVISCO ---
Intake Intake Visit Reasons: Anticoagulation Allergies rosuvastatin Adverse Reaction (Intermediate, Verified 02/07/25 09:09) Weakness meloxicam Allergy (Intermediate, Uncoded 01/30/25 09:55) Nausea Medication List - Last Reconciled 02/07/25 by Macarena Faust, RN ascorbic acid (vitamin C) mg PO DAILY aspirin 81 mg PO DAILY atenolol 12.5 mg PO DAILY cholecalciferol (vitamin D3) PO DAILY docusate sodium (Colace Clear) PO PRN ezetimibe 10 mg PO DAILY fluticasone propionate 50 mcg/actuation 1 spray intranasal DAILY PRN losartan 25 mg PO DAILY [omega 3 pt states 1 cap daily 500mg ] ifkqovaiyskuj-jumygwgxtpgbx-KO 5-325-200 mg (Mucinex Sinus-Max Severe Congestion Relief) 2 tabs PO Q4-6H PRN [REDS AND GREENS SUPPLEMENT 1 cap daily of each supplement ] warfarin 2.5 mg See Protocol PO DAILY Nursing Note NO CP,SOB,DIET/MED CHANGES,FALLS OR SX OF BLEEDING. BOOST SLIGHTLY TODAY AND FOLLOW-UP IN 2 WEEKS. GOOD UNDERSTANDING OF DOSING INSTR. Anti-Coag Initial Assessment Social Hx Patient Tobacco Use Status: Never used Tobacco alcohol intake: never Alcohol intake frequency: does not drink Coding Level of Care Code Est Patient Level 1 Diagnoses Current use of anticoagulant therapy Z79.01 Assessment & Plan Assessment & Plan (1) Current use of anticoagulant therapy: Code(s): Z79.01 - superintendent terminal (current) use of anticoagulants Category: Medical
== END 2025-02-07 09:30 | disposition home or self-care (01) ==
LOC: HO.ACS 09:05
PROVIDERS: Visit Provider Internal Medicine Medical Oncology
DX: Z79.01 Long term (current) use of anticoagulants (principal)

== ENCOUNTER → 2025-02-07 09:05 | Outpatient (BNVA) | payer MEDICARE, SELFPAY | PROVIDERS: Visit Provider Internal Medicine Medical Oncology | DX: Z86.73 Personal history of transient ischemic attack (TIA), and cerebral infarction without residual deficits (principal); Z79.01 Long term (current) use of anticoagulants; Z51.81 Encounter for therapeutic drug level monitoring | CPT/HCPCS: 85610; 99211 ==

== ENCOUNTER 2025-02-09 10:18 | Outpatient (AMB) | payer MEDICARE, SELFPAY ==
--- NOTE | 2025-02-09 10:24 | A.OFFPC_ITS ---
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 Accompanied by: Self / Same As Patient Allergies rosuvastatin Adverse Reaction (Intermediate, Verified 02/09/25 10:38) Weakness meloxicam Allergy (Intermediate, Uncoded 02/09/25 10:38) Nausea Medication List - Last Reconciled 02/09/25 by Mary Booth PA-C ascorbic acid (vitamin C) mg PO DAILY aspirin 81 mg PO DAILY atenolol 12.5 mg PO DAILY cholecalciferol (vitamin D3) PO DAILY docusate sodium (Colace Clear) PO PRN ezetimibe 10 mg PO DAILY fluticasone propionate 50 mcg/actuation 1 spray intranasal DAILY PRN losartan 25 mg PO DAILY [omega 3 pt states 1 cap daily 500mg ] anpbvcpdzutvl-kxwqucghoyibj-AP 5-325-200 mg (Mucinex Sinus-Max Severe Congestion Relief) 2 tabs PO Q4-6H PRN [REDS AND GREENS SUPPLEMENT 1 cap daily of each supplement ] warfarin 2.5 mg See Protocol PO DAILY Tobacco use date assessed: 02/09/25 Fall risk assessment: No Falls in past year Last assessed Fall Risk: 02/09/25 Dental Screening Dental Screen Date: 12/08/24 Did you have a dental visit in the last 12 months?: Yes Did you have a dental problem in the last 6 months where you did not have access to dental care?: No Was dental information given to patient?: Patient has dentist HPI 2 month f/u HPI Details 89 year old female with past medical his tory of CVA, sleep apnea, hypertension, hyperlipidemia, GERD, impaired glucose tolerance and carotid stenosis last seen 11/2024 coming in for follow up.?Patient was seen in [facility] 12/[address], EKG, labs showing no acute findings and patient was discharged home. Recently experienced a mild headache similar to a previous stroke event, prompting a hospital visit. Workup was reassuring and patient was discharged home. Blood pressure monitoring since then has shown normal results, and there have been no additional headaches or neurological symptoms. She has carotid artery stenosis at 50% and elevated cholesterol despite being on Zetia and Coumadin. She was recently seen by Neurology advised to stay on the warfarin indefinitely. [facility] Medical History Subarachnoid hemorrhage Sleep apnea HLD (hyperlipidemia) HTN (hypertension) Cataract TIA (transient ischemic attack) Surgical History History of cataract surgery Hx of appendectomy Social History Housing: House Alcohol intake: never Patient Tobacco Use Status: Never used Tobacco e-Cigarette/Vaping Use: Never Used Second Hand Smoke Exposure: No service: No Current occupational status: retired Cognitive needs: Yes (walker) Hearing needs: No Vision needs: Yes (Glasses) Questionnaire PHQ-9 Over the last 2 weeks, how often have you been bothered by any of the following problems? 1. Little interest or pleasure in doing things: not at all 2. Feeling down, depressed, or hopeless: not at all 3. Trouble falling or staying asleep, or sleeping too much: not at all 4. Feeling tired or having little energy: not at all 5. Poor appetite or overeating: not at all 6. Feeling bad about yourself - or that you are a failure or have let yourself or your family down: not at all 7. Trouble concentrating on things, such as reading the newspaper or watching television: not at all 8. Moving or speaking so slowly that other people could have noticed. Or the opposite - being so fidgety or restless that you have been moving around a lot more than usual: not at all 9. Thoughts that you would be better off or of hurting yourself in some way: not at all Total score: 0 Source: Developed by Drs. Avila Merlos, Fallon Sales, Quinton Muñoz and colleagues, with an educational jose luis from [employer]. Thrive Questionnaire Date Thrive assessed: 02/09/25 I am a: Patient What is your living situation today?: I have a steady place to live Within the past 12 months, did the food you bought not last and you didn't have the money to get more?: Never true Within the past 12 months, did you worry whether your food would run out before you got money to buy more?: Never true Do you have trouble paying for medicines?: No Do you have trouble getting transportation to medical appointments?: No Do you have trouble paying your heating and electricity bill?: No Do you have trouble taking care of your child, family member or friend?: I choose not to answer this question Do you have trouble with day-to-day activities such as bathing, preparing meals, shopping, managing finances, etc.?: I choose not to answer this question Are you currently unemployed and looking for a job?: No Are you interested in more education?: No Please select the resources that you would like help with: None Currently or been in a relationship where the following occur: I choose not to answer THRIVE Score: 0 AUDIT C Alcohol Use Questionnaire (AUDIT-C) 1. How often do you have a drink containing alcohol?: Never 3. How often do you have six or more drinks on one occasion?: Never Total Score: 0 MALATHI-7 AMB Questionnaire MALATHI-7 Date MALATHI - 7 assessed: 02/09/25 Feeling nervous, anxious, or on edge: 2 = More than half the days Not being able to stop or control worryin = More than half the days Worrying too much about different things: 2 = More than half the days Trouble relaxin = More than half the days Being so restless that it is hard to sit still: 1 = Several days Becoming easily annoyed or irritable: 1 = Several days Feeling afraid as if something awful might happen: 0 = Not at all Total MALATHI-7 score (0-4 normal; 5-9 mild; 10-14 moderate; 15-21 severe): 10 Source: Developed by Drs. Avila Merlos, Fallon Sales, Quinton Muñoz and colleagues, with an educational jose luis from [employer]. Review of Systems Const Denies body aches, Denies chills, Denies fever(s), Denies headache(s) and Denies poor appetite Eyes Reports no additional complaints ENT Denies dysphagia, Denies dizziness, Denies headache(s) and Denies odynophagia Card Denies chest pain, Denies syncope, Denies edema, Denies irregular heart rhythm, Denies lightheadedness and Denies dyspnea Resp Denies cough and Denies dyspnea GI Denies abdominal pain, Denies constipation, Denies dysphagia, Denies diarrhea, Denies nausea, Denies odynophagia and Denies vomiting Reports no additional complaints Musc Reports no additional complaints and Denies abnormal gait Skin/Breast Reports system reviewed and no additional complaints, except as documented Neuro Denies abnormal gait, Denies dizziness, Denies syncope and Denies headache(s) Psych Reports no additional complaints Physical exam (Primary Care) Vital Signs: Last Vital Signs Pulse 59 02/09/25 10:26 BP 132/80 02/09/25 10:26 Pulse Ox 97 02/09/25 10:26 Oxygen Delivery Method Room Air 02/09/25 10:26 BMI result Body Mass Index 26.9 Tobacco/Smoking Status: Tobacco use Status Tobacco use date assessed 02/09/25 02/09/25 10:31 Patient Tobacco Use Status Never used Tobacco 02/09/25 10:24 e-Cigarette/Vaping Use Never Used 02/09/25 10:24 PHQ-9: PHQ-9 Score PHQ-9: Total score 0 02/09/25 11:46 Thrive Assessment: Date of Thrive Assessment Date Thrive assessed 02/09/25 02/09/25 10:31 Currently or been in a relationship where the following occur: I choose not to answer Const General: cooperative, healthy appearing, comfortable and no acute distress Orientation/consciousness: patient oriented x3 HENMT Head: Yes normocephalic Ears: hearing grossly normal bilaterally General nose exam: Normal external nose present Eyes General: appearance normal, both eyes and all related structures Conjunctivae: conjunctivae normal Neck Neck: Yes full ROM and Yes no lymphadenopathy Resp Effort & Inspection: normal respiratory effort Auscultation: clear to auscultation bilaterally, no crackles, no rales, no rhonchi and no wheezes Cardio Rate: regular rate Rhythm: regular rhythm Skin General skin exam: no rashes or lesions noted Neuro General: patient oriented x3 Gait exam (Neuro): Normal gait present Extrem General: Yes normal to inspection, Yes full ROM and No edema Psych Affect: normal affect Attitude: cooperative Insight: Good insight present (Psych) Judgement: Good judgement present (Psych) Coding Level of Care Code Est Pt Level 3 (28615) Diagnoses CVA (cerebral vascular accident) I63.9 HTN (hypertension) I10 Hypertension type: unspecified HLD (hyperlipidemia) E78.5 Carotid stenosis I65.29 Asymptomatic bacteriuria R82.71 Assessment & Plan Assessment & Plan (1) CVA (cerebral vascular accident): Comment: 2013 Code(s): I63.9 - Cerebral infarction, unspecified Category: Medical Plan: Patient recently seen by Neurology advised to continue on the warfarin indefinitely. Advised good control of blood pressure, cholesterol and blood sugars. Plan to obtain neurology notes (2) HTN (hypertension): Code(s): I10 - Essential (primary) hypertension Category: Medical Qualifiers: Hypertension type: unspecified Qualified Code(s): I10 - Essential (primary) hypertension Plan: Continue on current blood pressure medication. Avoid salt intake and encourage healthy diet and regular exercise. (3) HLD (hyperlipidemia): Code(s): E78.5 - Hyperlipidemia, unspecified Category: Medical Plan: Avoid foods that are high in cholesterol such as red meat, fried foods, eggs and baked goods. Triglyceride goal of less than 150 and LDL goal of less than 70. Recently started on Zetia has been tolerating the medication well. She was given rosuvastatin and had severe muscle weakness and rosuvastatin was discontinued. Plan to obtain review blood work in 3 months. (4) Carotid stenosis: Code(s): I65.29 - Occlusion and stenosis of unspecified carotid artery Category: Medical Plan: We encouraged ongoing monitoring of the patient's carotid artery status given her history of stroke and carotid stenosis. Recommended following up with her neurologist as they were previously managing this condition. (5) Asymptomatic bacteriuria: Code(s): R82.71 - Bacteriuria Category: Medical Plan: Patient has a history of asymptomatic bacteriuria. Most recent urine did show elevation in leukocytes however patient is declining any symptoms and declines treatment today. Continue to monitor for symptoms Plan Management includes optimizing post-stroke recovery, revisiting current medication regimens, and maintaining diligent monitoring of her cardiovascular health. Continued administration of Coumadin is endorsed due to her variable INR values, and Zetia will be sustained for cholesterol control, as it has less risk of muscular side effects. No immediate invasive procedures for carotid stenosis, given the lack of symptoms. Stress management is underlined as an influencing factor on anticoagulation control. Anticipated lipid reassessment is scheduled in three months. For varicose veins, the plan involves compression stockings and elevation when feasible. This note was constructed using voice recognition software. While every effort has been made to ensure accuracy and accounting clerk, still areas may have been included sometimes these areas may affect the content or meeting of the given symptoms. Total time spent caring for the patient today was 30 minutes. This includes time spent before the visit reviewing the chart, time spent during the visit, and time spent after the visit and documentation.
[2025-02-09 10:26] VITALS: BP 132/80; PULSE 59; O2SAT 97; BMI 26.9
== END 2025-02-09 11:36 | disposition home or self-care (01) ==
LOC: HO.HMCH 10:19
DX: I63.9 Cerebral infarction, unspecified (principal); I10 Essential (primary) hypertension; E78.5 Hyperlipidemia, unspecified; I65.29 Occlusion and stenosis of unspecified carotid artery; R82.71 Bacteriuria

== ENCOUNTER → 2025-02-09 10:18 | Outpatient (BNVA) | payer MEDICARE, SELFPAY | DX: I63.9 Cerebral infarction, unspecified (principal); I10 Essential (primary) hypertension; E78.5 Hyperlipidemia, unspecified; I65.29 Occlusion and stenosis of unspecified carotid artery; R82.71 Bacteriuria | CPT/HCPCS: 99212 ==

== ENCOUNTER 2025-02-21 09:14 | Outpatient (AMB) | payer MEDICARE, SELFPAY ==
[2025-02-21 09:25] LABS: Prothrombin Time Whole Bld POC 24.8 sec (11.1-13.5); ~PT, ~INR - Anti Coag Clinic 2.1 (0.9-1.1)
--- NOTE | 2025-02-21 09:46 | MHC.OFFVISCO ---
Intake Intake Visit Reasons: Anticoagulation Allergies rosuvastatin Adverse Reaction (Intermediate, Verified 02/09/25 10:38) Weakness meloxicam Allergy (Intermediate, Uncoded 02/09/25 10:38) Nausea Medication List - Last Reconciled 02/21/25 by Bev Laws, RN ascorbic acid (vitamin C) mg PO DAILY aspirin 81 mg PO DAILY atenolol 12.5 mg PO DAILY cholecalciferol (vitamin D3) PO DAILY docusate sodium (Colace Clear) PO PRN ezetimibe 10 mg PO DAILY fluticasone propionate 50 mcg/actuation 1 spray intranasal DAILY PRN losartan 25 mg PO DAILY [omega 3 pt states 1 cap daily 500mg ] dmalycybgunwq-zcdqdkmfcuuxe-WZ 5-325-200 mg (Mucinex Sinus-Max Severe Congestion Relief) 2 tabs PO Q4-6H PRN [REDS AND GREENS SUPPLEMENT 1 cap daily of each supplement ] warfarin 2.5 mg See Protocol PO DAILY Nursing Note INR: 2.1 in therapeutic range 2-3 Medications and supplements reviewed No changes in health, diet, medications, or supplements, Denies any signs and symptoms of bleeding or bruising or clotting. 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
== END 2025-02-21 10:01 | disposition home or self-care (01) ==
LOC: HO.ACS 09:14
PROVIDERS: Visit Provider Internal Medicine Medical Oncology
DX: Z79.01 Long term (current) use of anticoagulants (principal)

== ENCOUNTER → 2025-02-21 09:14 | Outpatient (BNVA) | payer MEDICARE, SELFPAY | PROVIDERS: Visit Provider Internal Medicine Medical Oncology | DX: Z86.73 Personal history of transient ischemic attack (TIA), and cerebral infarction without residual deficits (principal); Z79.01 Long term (current) use of anticoagulants; Z51.81 Encounter for therapeutic drug level monitoring | CPT/HCPCS: 85610; 99211 ==

== ENCOUNTER 2025-03-08 09:08 | Outpatient (AMB) | payer MEDICARE, SELFPAY ==
--- NOTE | 2025-03-08 09:17 | MHC.OFFVISCO ---
Intake Intake Visit Reasons: Anticoagulation Allergies rosuvastatin Adverse Reaction (Intermediate, Verified 03/08/25 09:11) Weakness meloxicam Allergy (Intermediate, Uncoded 03/08/25 09:11) Nausea Medication List - Last Reconciled 03/08/25 by Lizet Macdonald, RN ascorbic acid (vitamin C) mg PO DAILY aspirin 81 mg PO DAILY atenolol 12.5 mg PO DAILY cholecalciferol (vitamin D3) PO DAILY docusate sodium (Colace Clear) PO PRN ezetimibe 10 mg PO DAILY fluticasone propionate 50 mcg/actuation 1 spray intranasal DAILY PRN losartan 25 mg PO DAILY [omega 3 pt states 1 cap daily 500mg ] qfrghyudxgjuc-mmtuzbzmoppsf-MD 5-325-200 mg (Mucinex Sinus-Max Severe Congestion Relief) 2 tabs PO Q4-6H PRN [REDS AND GREENS SUPPLEMENT 1 cap daily of each supplement ] warfarin 2.5 mg See Protocol PO DAILY Nursing Note INR: 2.6- in therapeutic range of 2-3 Medications and supplements reviewed- no changes No changes in health, diet, medications, or supplements, Denies any signs and symptoms of bleeding or bruising or clotting. Bleeding, bruising, clotting discussed Nutritional guidance given Dose: 2.5mg x 1, 1.25mg x 6 F/U INR: 2 weeks Patient verbalizes understanding of instructions given pt passed on 03/05/25 Anti-Coag Initial Assessment Social Hx Patient Tobacco Use Status: Never used Tobacco alcohol intake: never Alcohol intake frequency: does not drink Coding Level of Care Code Est Patient Level 1 Diagnoses Current use of anticoagulant therapy Z79.01 Assessment & Plan Assessment & Plan (1) Current use of anticoagulant therapy: Code(s): Z79.01 - [facility] (current) use of anticoagulants Category: Medical
[2025-03-08 09:18] LABS: Prothrombin Time Whole Bld POC 31.5 sec (11.1-13.5); ~PT, ~INR - Anti Coag Clinic 2.6 (0.9-1.1)
== END 2025-03-08 09:35 | disposition home or self-care (01) ==
LOC: HO.ACS 09:08
PROVIDERS: Visit Provider Internal Medicine Medical Oncology
DX: Z79.01 Long term (current) use of anticoagulants (principal)

== ENCOUNTER → 2025-03-08 09:08 | Outpatient (BNVA) | payer MEDICARE, SELFPAY | PROVIDERS: Visit Provider Internal Medicine Medical Oncology | DX: Z86.73 Personal history of transient ischemic attack (TIA), and cerebral infarction without residual deficits (principal); Z79.01 Long term (current) use of anticoagulants; Z51.81 Encounter for therapeutic drug level monitoring | CPT/HCPCS: 85610; 99211 ==

== ENCOUNTER 2025-03-23 09:11 | Outpatient (AMB) | payer MEDICARE, SELFPAY ==
[2025-03-23 09:17] LABS: Prothrombin Time Whole Bld POC 24.3 sec (11.1-13.5); ~PT, ~INR - Anti Coag Clinic 2.0 (0.9-1.1)
--- NOTE | 2025-03-23 09:27 | MHC.OFFVISCO ---
Intake Intake Visit Reasons: Anticoagulation Allergies rosuvastatin Adverse Reaction (Intermediate, Verified 03/08/25 09:11) Weakness meloxicam Allergy (Intermediate, Uncoded 03/08/25 09:11) Nausea Nursing Note INR: 2.0 in therapeutic range Medications and supplements reviewed No changes in health, diet, medications, or supplements, Denies any signs and symptoms of bleeding or bruising or clotting. Bleeding, bruising, clotting discussed Nutritional guidance given Dose: 2.5MG X 1 DAY/ 1.25MG X 6 DAYS F/U INR: 2 WEEKS Patient verbalizes understanding of instructions given Anti-Coag Initial Assessment Social Hx Patient Tobacco Use Status: Never used Tobacco alcohol intake: never Alcohol intake frequency: does not drink Coding Level of Care Code Est Patient Level 1 Diagnoses Current use of anticoagulant therapy Z79.01 Assessment & Plan Assessment & Plan (1) Current use of anticoagulant therapy: Code(s): Z79.01 - [facility] (current) use of anticoagulants Category: Medical
== END 2025-03-23 09:32 | disposition home or self-care (01) ==
LOC: HO.ACS 09:11
PROVIDERS: Visit Provider Internal Medicine Medical Oncology
DX: Z79.01 Long term (current) use of anticoagulants (principal)

== ENCOUNTER → 2025-03-23 09:11 | Outpatient (BNVA) | payer MEDICARE, SELFPAY | PROVIDERS: Visit Provider Internal Medicine Medical Oncology | DX: Z86.73 Personal history of transient ischemic attack (TIA), and cerebral infarction without residual deficits (principal); Z79.01 Long term (current) use of anticoagulants; Z51.81 Encounter for therapeutic drug level monitoring | CPT/HCPCS: 85610; 99211 ==

== ENCOUNTER 2025-04-06 09:27 | Outpatient (AMB) | payer MEDICARE, SELFPAY ==
[2025-04-06 09:34] LABS: Prothrombin Time Whole Bld POC 27.4 sec (11.1-13.5); ~PT, ~INR - Anti Coag Clinic 2.3 (0.9-1.1)
--- NOTE | 2025-04-06 09:44 | MHC.OFFVISCO ---
Intake Intake Visit Reasons: Anticoagulation Allergies rosuvastatin Adverse Reaction (Intermediate, Verified 04/06/25 09:28) Weakness meloxicam Allergy (Intermediate, Uncoded 04/06/25 09:28) Nausea Medication List - Last Reconciled 04/06/25 by Lety Yusuf RN ascorbic acid (vitamin C) mg PO DAILY aspirin 81 mg PO DAILY atenolol 12.5 mg PO DAILY cholecalciferol (vitamin D3) PO DAILY docusate sodium (Colace Clear) PO PRN ezetimibe 10 mg PO DAILY fluticasone propionate 50 mcg/actuation 1 spray intranasal DAILY PRN losartan 25 mg PO DAILY [omega 3 pt states 1 cap daily 500mg ] xawixqvrtydfc-htxtufzluracr-NB 5-325-200 mg (Mucinex Sinus-Max Severe Congestion Relief) 2 tabs PO Q4-6H PRN [REDS AND GREENS SUPPLEMENT 1 cap daily of each supplement ] warfarin 2.5 mg See Protocol PO DAILY Nursing Note INR: 2.3 in therapeutic range Medications and supplements reviewed No changes in health, diet, medications, or supplements, coping well with souse passing- family is supportive Denies any signs and symptoms of bleeding or bruising or clotting. Bleeding, bruising, clotting discussed Nutritional guidance given Dose: 2.5mg x 1 day 1.25mg x 6 days F/U INR: 3 weeks due to stable INR values Patient verbalizes understanding of instructions given Anti-Coag Initial Assessment Social Hx Patient Tobacco Use Status: Never used Tobacco alcohol intake: never Alcohol intake frequency: does not drink Coding Level of Care Code Est Patient Level 1 Diagnoses Current use of anticoagulant therapy Z79.01 Results AMB INR Fingerstick AMB INR Fingerstick 2.3 Last Edit by Lety Yusuf RN on 04/06/25 09:40 manual entry Assessment & Plan Assessment & Plan (1) Current use of anticoagulant therapy: Code(s): Z79.01 - care home (current) use of anticoagulants Category: Medical
== END 2025-04-06 09:48 | disposition home or self-care (01) ==
LOC: HO.ACS 09:27
PROVIDERS: Visit Provider Internal Medicine Medical Oncology
DX: Z79.01 Long term (current) use of anticoagulants (principal)

== ENCOUNTER → 2025-04-06 09:27 | Outpatient (BNVA) | payer MEDICARE, SELFPAY | PROVIDERS: Visit Provider Internal Medicine Medical Oncology | DX: Z86.73 Personal history of transient ischemic attack (TIA), and cerebral infarction without residual deficits (principal); Z79.01 Long term (current) use of anticoagulants; Z51.81 Encounter for therapeutic drug level monitoring | CPT/HCPCS: 85610; 99211 ==

== ENCOUNTER 2025-04-27 08:45 | Outpatient (REF) | payer MEDICARE, SELFPAY ==
[2025-04-27 09:58] LABS: Appearance Urine Clear; Glucose Urine UA Negative (Negative); PH 6.0 (5.0-9.0); Specific Gravity - Urine 1.010 (1.005-1.025); UMIC TRIGGER UACC YES
[2025-04-27 10:04] LABS: UACC Culture Trigger YES
[2025-04-27 10:31] LABS: Cholesterol 214 mg/dL (<200); HDL Cholesterol 61 mg/dL (>40); Triglycerides 154 mg/dL (<150)
== END 2025-04-27 08:46 | disposition home or self-care (01) ==
LOC: HO.LAB 08:45
DX: E78.00 Pure hypercholesterolemia, unspecified (principal); R82.90 Unspecified abnormal findings in urine
CPT/HCPCS: 36415; 80061; 81001; 85610; 87086; 87088; 87186; 88112; 99211

== ENCOUNTER 2025-04-27 08:49 | Outpatient (AMB) | payer MEDICARE, SELFPAY ==
--- NOTE | 2025-04-27 09:00 | MHC.OFFVISCO ---
Intake Intake Visit Reasons: Anticoagulation Allergies rosuvastatin Adverse Reaction (Intermediate, Verified 04/27/25 08:55) Weakness meloxicam Allergy (Intermediate, Uncoded 04/27/25 08:55) Nausea Medication List - Last Reconciled 04/27/25 by Lizet Macdonald, RN ascorbic acid (vitamin C) mg PO DAILY aspirin 81 mg PO DAILY atenolol 12.5 mg PO DAILY cholecalciferol (vitamin D3) PO DAILY docusate sodium (Colace Clear) PO PRN ezetimibe 10 mg PO DAILY fluticasone propionate 50 mcg/actuation 1 spray intranasal DAILY PRN losartan 25 mg PO DAILY [omega 3 pt states 1 cap daily 500mg ] lhtjrolqkqqtz-rhsfqjyyeybcy-TK 5-325-200 mg (Mucinex Sinus-Max Severe Congestion Relief) 2 tabs PO Q4-6H PRN [REDS AND GREENS SUPPLEMENT 1 cap daily of each supplement ] warfarin 2.5 mg See Protocol PO DAILY Nursing Note INR: 2.7- in therapeutic range of 2-3 Medications and supplements reviewed- no changes No changes in health, diet, medications, or supplements, Denies any signs and symptoms of bleeding or bruising or clotting. Bleeding, bruising, clotting discussed - pt with large fading bruise right shoulder - pt called acs 04/20/25 to report Nutritional guidance given Dose: 2.5mg x 1. 1.25mg x 6 F/U INR: 3 weeks Patient verbalizes understanding of instructions given pt amb with walker, acompanied by son Anti-Coag Initial Assessment Social Hx Patient Tobacco Use Status: Never used Tobacco alcohol intake: never Alcohol intake frequency: does not drink Coding Level of Care Code Est Patient Level 1 Diagnoses Current use of anticoagulant therapy Z79.01 Assessment & Plan Assessment & Plan (1) Current use of anticoagulant therapy: Code(s): Z79.01 - jail (current) use of anticoagulants Category: Medical
[2025-04-27 09:01] LABS: Prothrombin Time Whole Bld POC 32.3 sec (11.1-13.5); ~PT, ~INR - Anti Coag Clinic 2.7 (0.9-1.1)
== END 2025-04-27 09:10 | disposition home or self-care (01) ==
LOC: HO.ACS 08:49
PROVIDERS: Visit Provider Internal Medicine Medical Oncology
DX: Z79.01 Long term (current) use of anticoagulants (principal)

== ENCOUNTER 2025-05-18 08:51 | Outpatient (AMB) | payer MEDICARE, SELFPAY ==
[2025-05-18 09:03] LABS: Prothrombin Time Whole Bld POC 26.3 sec (11.1-13.5); ~PT, ~INR - Anti Coag Clinic 2.2 (0.9-1.1)
--- NOTE | 2025-05-18 09:12 | MHC.OFFVISCO ---
Intake Intake Visit Reasons: Anticoagulation Allergies rosuvastatin Adverse Reaction (Intermediate, Verified 04/27/25 08:55) Weakness meloxicam Allergy (Intermediate, Uncoded 04/27/25 08:55) Nausea Medication List - Last Reconciled 05/18/25 by Lety Yusuf, RN ascorbic acid (vitamin C) mg PO DAILY aspirin 81 mg PO DAILY atenolol 12.5 mg PO DAILY cholecalciferol (vitamin D3) PO DAILY docusate sodium (Colace Clear) PO PRN ezetimibe 10 mg PO DAILY fluticasone propionate 50 mcg/actuation 1 spray intranasal DAILY PRN losartan 25 mg PO DAILY [omega 3 pt states 1 cap daily 500mg ] thmwacogngino-ulwnqtfiaqptw-HN 5-325-200 mg (Mucinex Sinus-Max Severe Congestion Relief) 2 tabs PO Q4-6H PRN [REDS AND GREENS SUPPLEMENT 1 cap daily of each supplement ] warfarin 2.5 mg See Protocol PO DAILY Nursing Note INR: 2.2 in therapeutic range Medications and supplements reviewed pt has an almost complete resolved tricep shoulder area bruise (barely noticeable now and most likely from weeding) No changes in health, diet, medications, or supplements, Denies any signs and symptoms of clotting. Bleeding, bruising, clotting discussed Nutritional guidance given Dose: same 2.5mg x 1 day / 1.25mg x 6 days F/U INR: 4 weeks Patient verbalizes understanding of instructions given Anti-Coag Initial Assessment Social Hx Patient Tobacco Use Status: Never used Tobacco alcohol intake: never Alcohol intake frequency: does not drink Coding Level of Care Code Est Patient Level 1 Diagnoses Current use of anticoagulant therapy Z79.01 Assessment & Plan Assessment & Plan (1) Current use of anticoagulant therapy: Code(s): Z79.01 - shelter (current) use of anticoagulants Category: Medical
--- OUTSIDE RECORDS SUMMARY | 2025-05-18 09:39 | XMS_ITS | Clinical Summary ---
Author Organization [facility] Address [address] [place] [address] [address] [place] [address] Phone Care Team Providers Care Land Sales Agent Name Role Phone Aries Giles MD Unavailable [phone] Pcp, Unknown Primary Care Provider Unavailabl e Allergies Active Allergy Reactions Criticality Noted Date Comments Atorvastatin Myalgia 03/18/2024 Meloxicam Nausea and/or Vomiting 08/07/2017 Rosuvastatin Other (See Comments) 03/18/2024 Weakness of muscles but no pain Medications omega-3 fatty acids-fish oil 360-1,200 mg Cap Take 1,250 mg by mouth daily. Active fluticasone propionate (FLONASE) 50 mcg/actuation nasal spray 1 spray daily as needed for allergies. Active ascorbic acid, vitamin C, (VITAMIN C) 500 mg Chew Take 500 mg by mouth daily. Active cholecalciferol (VITAMIN D3) 1,000 unit tablet Take 3,000 Units by mouth daily. Active aspirin 81 MG EC tablet Take 81 mg by mouth daily. Active ACETAMINOPHEN ORAL Take 325 mg by mouth as needed for mild pain. Active lycopene/lutein/f ruit extracts (FRUIT AND VEGETABLE DAILY ORAL) Take 1 capsule by mouth as needed (Depending on INR levels). Balance of nature fruit and vegetable Active LORazepam (ATIVAN) 0.5 MG tabletIndications :Anxiety Take 1 tablet (0.5 mg total) by mouth daily as needed for anxiety. 20 tablet 3 Active losartan (COZAAR) 25 MG tabletIndications :HTN (hypertension) take 1 tablet by mouth every day 90 tablet 3 4 Active warfarin (COUMADIN) 2.5 MG tabletIndications :Atrial fibrillation One tablet daily or as directed by coumadin clinic 90 tablet 3 4 Active atenolol (TENORMIN) 25 MG tabletIndications :Essential hypertension TAKE 1 TABLET (25 MG TOTAL) BY MOUTH DAILY. 90 tablet 3 4 Active Active Problems Problem Noted Date Diagnosed Date Skin lesions 05/07/2024 Overview (05/07/2024): Seen at OR derm 05/06/24, by Dr. Guille Blanco- f/u 1 yr advised. Multiple dx actinic keratosis,junctional nevus, seborrheic keratosis, Lentigines, awad angiomas, dilated pore, scar, subungual hematoma, toenail Traumatic subarachnoid hemor rhage with loss of consciousness greater than 24 hours with return to pre-existing conscious level, initial encounter 03/18/2024 Type 2 diabetes mellitus wit h diabetic polyneuropathy, without long-term current use of insulin 12/23/2021 Blister of great toe of right foot 06/03/2021 Assessment & Plan (06/03/2021 3:10 PM EDT): We were able to tell on this visit that the blister was indeed filled with blood but was not showing signs of infection around it which could have been the case. The blister appears to be caused by trauma perhaps friction rub doing the exercises that she had done just prior to the development of it. As such the patient will cover the blister and this may avulsed on its own but there is no other measures that need to be taken. Patient assured. Subarachnoid hemorrhage foll owing injury, no loss of consciousness 09/30/2019 Stenosis of carotid artery 09/30/2019 Heart murmur, systolic 08/26/2019 Assessment & Plan (08/26/2019 10:00 AM EST): The systolic murmur best heard right second intercostal space possibly associated with a mild aortic stenosis, patient recommended to have echocardiogram, patient felt she would like to consult with Dr. Giles first. The murmur would be good to investigate to determine if aortic stenosis present. This would put her at risk for CHF, syncope, cardiac disease. Lightheadedness 08/26/2019 Assessment & Plan (08/26/2019 10:01 AM EST): This patient has lightheadedness and is thought to be blood pressure related, we will conservatively reduce the atenolol and hopefully increase her average heart rate to reduce symptoms. Ultimately we recommend getting an echocardiogram to assess the cardiac murmur discovered on exam. Bradycardia 08/26/2019 Assessment & Plan (08/26/2019 10:01 AM EST): We will reduce the atenolol to 12.5 mg and see if her average heart rate increases back to 72 bpm. Goiter 06/23/2019 Alopecia 06/23/2019 Low TSH level 05/25/2019 Assessment & Plan (08/25/2019 9:06 AM EST): The TSH is in the low normal reference range and I did not find any etiology such as autoimmune disease. Thyroid ultrasound did not show any thyroid nodules or can be toxic nodules. My feeling is that it probably was the biotin. In the future I will suggest that she stop biotin 2 weeks before any lab work because it does affect various assays. At this point we still do not know all assays that it affects but she felt that it helped with hair loss. I also suspect that her stress levels high and this can cause hair loss so she needs to calm down she needs to do relaxation techniques, meditation, prayer or help. If she develops suppressed TSH in the future I could definitely treat her and reevaluate. She did not appear to have any medications that will suppress her TSH may be this is how she runs. I would not give her a follow-up appointment but she can always be rereferred if required. Assessment & Plan (06/23/2019 10:09 AM EDT): If the patient has low normal reference range TSH on one occasion she had a low TSH but she does not have any autoimmune disease such as Graves' disease or Jacky's thyroiditis. It does not appear to be a lab assay abnormality from the use of biotin. At this point I will request an ultrasound of the thyroid gland to see if she has any thyroid nodules. If there are any thyroid nodules present then we will request radioactive iodine uptake and scan to measure activity for evaluation of a toxic nodule or multinodular goiter. She will follow in 2 months time. Assessment & Plan (05/25/2019 1:58 PM EDT): It appears that the patient does have family history of thyroid disorder in the past she has had low normal reference range TSH. Confounding factor is that she is on biotin. I advised her to stop taking biotin for a week or 2 and repeat thyroid function studies. I will also like to check TPO, thyroglobulin antibodies for evaluation of Jacky's and check TBI IN TSI for evaluation of Graves' disease. Based on the results of the labs we will determine what imaging if any we have to do with a radioactive iodine uptake and scan she has a questionable thyroid nodule and may require ultrasound of the thyroid as well. However she has a suppressed TSH I will go with radioactive iodine uptake scan she may have a toxic nodule. I will give her a follow-up appointment in 4 weeks time. Age-related cataract 11/06/2017 Cerebrovascular accident (CVA) 11/06/2017 Assessment & Plan (06/03/2021 3:13 PM EDT): Patient has a repeat INR already drawn today and we will follow up with that lab and give it further to the Coumadin clinic to adjust the patient's Coumadin. Currently she would be taking 2.5 mg tonight, a full tablet. I counseled her to ready herself to take 1/2 tablet if we do not contact her tonight regarding the INR. This is to hedge against the possibility, the eventuality that the INR is supratherapeutic. Indeed the last INR was 3.0 and the patient's diet self-admittedly was not that elevated in vitamin K. This opened the discussion as to why she is on the Coumadin. We talked about Eliquis as a possible safer treatment but it did not look like she was on it for atrial fibrillation for which the indications is stating. She is on an aspirin a day as well as the Coumadin so that should be assessed if deemed necessary. We see that she has carotid stenosis so that might be the reason that she is on both but clearly there needs to be a hard indication given the potentiation of anticoagulation. I can discuss this with the patient's primary care physician. Gastroesophageal reflux disease 11/06/2017 Hip pain 11/06/2017 HTN (hypertension) 11/06/2017 Assessment & Plan (08/26/2019 9:58 AM EST): Even though blood pressure within normal limits also at home, the heart rate is somewhat reduced and in conjunction with symptoms of lightheadedness concern of overtreatment. Reduce atenolol to 12.5 mg daily, patient will cut tablet in half. Patient following up with Dr. Giles in September. Hyperlipidemia 11/06/2017 Low back pain 11/06/2017 Mixed hyperlipidemia 11/06/2017 Obstructive sleep apnea syndrome 11/06/2017 Primary osteoarthritis of both knees 11/06/2017 Pure hypercholesterolemia 11/06/2017 Sciatica 11/06/2017 Encounters Date Type Department Care Team Description 04/28/2025 Refill [facility] Internal Medicine [address] [place] [address] Aries Giles MD Medication Refill 03/15/2025 Patient Outreach [facility] [address] [place] [address] Kristi Moreau, DAJA Administration (iCMP Discharge ) 03/15/2025 Patient Outreach [facility] [address] [place] [id number] Leyla Chawla, RN Program Discharge (D/c) from Last 3 Months Immunizations Immunization Administration Dates Next Due INFLUENZA, SPLIT VIRUS, TRIV ALENT W/ PRESERVATIVE IM 06/14/2014,07/04/2013 Influenza High-Dose Quadriva lent Preservative Free IM 07/10/2023,06/24/2021 Influenza High-Dose Trivalen t Preservative Free IM 07/07/2019,06/03/2018,06/04/2017,07/16,08/06/2015,10/01/2012 Influenza Recombinant Kerri valent Preservative Free IM 07/09/2020 Pneumococcal conjugate PCV13 01/05/2015 Pneumococcal polysaccharide PPSV23 05/03/2020, Td (adult) 5 Lf Tetanus Toxo id, PF, Adsorbed 06/30/2014,03/21/2004 Family History Medical History Relation Comments Cancer Father Goiter Mother Pancreatic cancer Mother Relation Status Comments Father Mother Sister at age 94 Social History Tobacco Use Types Packs/Day Years Used Date Smoking Tobacco: Never Smokeless Tobacco: Never Tobacco Cessation:Counseling Given: Not Answered Alcohol Use Standard Drinks/Week Comments Not Currently 0 (1 standard drink = 0.6 oz pur e alcohol) Education Answer Date Recorded Are you interested in more education? Not on mark e 01/15/2023 Are you concerned about learning? Not on file 01/15/2023 No 01/15/2023 No 01/15/2023 Digital Access Answer Date Recorded No 02/11/2023 No 02/11/2023 Reliable internet access at home? Not on file 02/11/2023 Device with a working camera? Not on file Intimate Partner Violence Answer Date R ecorded Denied Basic Needs Not on file 07/10/2023 In the past 12 months have y ou been in a relationship with a person who hurts, threatens, or tries to control you? No 07/10/2023 Worried food would run out Not on file 07/10 In the past 12 months have y ou been in a relationship with a person who hurts, threatens, or tries to control you? No 07/10/2023 Comments No Sex and Gender Information Value Date Recorded Sex Assigned at Not on file Legal Sex Female 10:14 PM EDT Gender Identity Not on file Sexual Orientation Not on file Last Filed Vital Signs Vital Sign Reading Time Taken Comments Blood Pressure 145/76 03/18/2024 11:03 AM EDT Pulse 55 03/18/2024 11:03 AM EDT Temperature 35.7 C (96.3 F) 03/18/2024 11:03 AM EDT Respiratory Rate 20 03/18/2024 11:03 AM EDT Oxygen Saturation 99% 03/18/2024 11:03 AM EDT Inhaled Oxygen Concentration - - Weight 78.7 kg (173 lb 6.4 oz) 03/18/2024 11:03 AM EDT Height 157.5 cm (5' 2.01 ) 03/18/2024 11:03 AM E DT Body Mass Index 31.71 03/18/2024 11:03 AM EDT Plan of Treatment Health Maintenance Due Date Last Done Comments ZOSTER VACCINES (1 of 2) 1987 RSV VACCINE (1 - 1-dose 75+ series) 2012 COVID-19 VACCINE (1 - season) 2024 HEMOGLOBIN A1C 06/28/2024 12/28/2023, 06/21, 07/09/2023, Additional history exists Adult Td,Tdap Booster 06/30/2024 06/30/2014, 004 DEPRESSION SCREENING 07/10/2024 07/10/2023 DIABETIC EYE EXAM 01/10/2025 01/11/2024, , 03/19/2020 CREATININE LEVEL 03/15/2025 03/15/2024, 04/2024, 08/18/2023, Additional history exists LIPID PANEL 03/15/2025 03/15/2024, 04/0 04/2024, 12/22/2022, Additional history exists POTASSIUM LEVEL 03/15/2025 03/15/2024, 04/0 04/2024, 08/18/2023, Additional history exists PNEUMOCOCCAL VACCINES (50+ years) Completed 05/03/2020, 01/05/2015, 09/21/2003 HEPATITIS A VACCINES Aged Out No long er eligible based on patient's age to complete this topic HIB VACCINES Aged Out No longer eligi ble based on patient's age to complete this topic MENINGOCOCCAL VACCINES (ACWY) Aged Out No longer eligible based on patient's age to complete this topic MENINGOCOCCAL VACCINES (B) Aged Out N o longer eligible based on patient's age to complete this topic Medical Devices Not on file Procedures Procedure Name Priority Date/Time Associated Diagnosis Comments LIPID PANEL Routine 03/15/2024 7:49 AM EDT Type 2 diabetes mellitus with diabetic polyneuropathy, without long-term current use of insulin COMPREHENSIVE METABOLIC PANEL Routine 03/15/2024 7:49 AM EDT Pure hypercholesterolem ia Type 2 diabetes mellitus with diabetic polyneuropathy, without long-term current use of insulin DIABETES EYE EXAM FOR RESULT ENTRY ONLY Routine 01/11/2024 3:16 PM EDT HEMOGLOBIN A1C Routine 12/28/2023 8:19 AM EDT Type 2 diabetes mellitus with diabetic polyneuropathy, without long-term current use of insulin from Last 3 Months or Most Recently Relevant to Health Maintenance Results * (ABNORMAL) Comprehensive metabolic panel (03/15/2024 7:49 AM EDT) SODIUM 141 133 - 146 mmol/L [facility] POTASSIUM 4.3 3.3 - 5.1 mmol/L [facility] CHLORIDE 104 96 - 108 mmol/L [facility] CO2 28 21 - 35 mmol/L [facility] BUN 15 6 - 19 mg/dL [facility] CREATININE 0.60 0.5 - 1.5 mg/dL [facility] GLUCOSE 115(H) 70 - 99 mg/dL [facility] ALBUMIN 4.3 3.9 - 4.8 g/dL [facility] TOTAL PROTEIN 7.1 6.5 - 8.0 g/dL [facility] CALCIUM 9.6 8.4 - 10.3 mg/dL [facility] ALKALINE PHOSPHATASE 77 39 - 117 U/L [facility] TOTAL BILIRUBIN 1.1 0.0 - 1.2 mg/dL [facility] AST 26 0 - 37 U/L [facility] ALT 13 0 - 40 U/L [facility] GLOBULIN 2.8 1 - 4.8 g/dL [facility] EGFR 87 >59 mL/min/1.7 3m2 [facility] Comment:Estimated glomerular filtration rate calculated using the CKD-EPI refit equation. ANION GAP 13 10 - 20 mmol/L [facility] Blood 03/15/2024 7:49 AM EDT 03/15/2024 7:51 AM EDT us Aries Giles MD LAB BLOOD ORDERABLES Final Re sult [facility] [address] [place] [address] * (ABNORMAL) Lipid panel (03/15/2024 7:49 AM EDT) HDL 57 mg/dL [facility] Comment: Interpretation <40 mg/dL: Low HDL cholesterol (major risk factor for CHD) Greater than or equal to 60 mg/dL: High HDL cholesterol ( negative risk factor for CHD) HDL - cholesterol is affected by a number of factors, e.g. smoking, excerise, hormones, sex and age. CHOLESTEROL 148 0 - 240 mg/dL [facility] TRIGLYCERIDES 125 30 - 160 mg/dL [facility] LDL 66 50 - 129 mg/dL [facility] Comment: LDL levels in terms of risk for coronary heart disease: <100 mg/dL: Optimal 100-129 mg/dL: Near or above optimal 130-159 mg/dL: Borderline high 160-189 mg/dL: High >190 mg/dL: Very High CARDIAC RISK RATIO 2.6(L) 3.3 - 4.4 C [facility] Blood 03/15/2024 7:49 AM EDT 03/15/2024 7:51 AM EDT Aries Giles MD LAB BLOOD ORDERABLES Final Re sult Performing Organization Address City/[facility]/ZIP Co de Phone Number [address] [address] * DIABETES EYE EXAM FOR RESULT ENTRY ONLY (01/11/2024 3:16 PM EDT) Uma Beck MD HEALTH MAINTENANCE Final Result * (ABNORMAL) Hemoglobin A1c (12/28/2023 8:19 AM EDT) [facility] HEMOGLOBIN A1C 6.1(H) 4.3 - 5.8 % [facility] Blood 12/28/2023 8:19 AM EDT 12/28/2023 8:23 AM EDT Aries Giles MD LAB BLOOD ORDERABLES Final Re sult Performing Organization Address City/[facility]/ZIP Co de Phone Number [address] [phone] from Last 3 Months or Most Recently Relevant to Health Maintenance Insurance MEDICARE PART A & B [employer] MEDICARE PART A & B [employer] MEDICARE PART A & B [employer] MEDICARE PART A & B [employer] SUPPLEMENT MEDICARE PART A & B [employer] SUPPLEMENT MEDICARE PART A & B [employer]OSS MEDEX SUPPLEMENT MEDICARE PART A & B [employer] SU[employer] MEDICARE PART A & B [employer] CROSS MEDEX SUPPLEMENT MEDICARE PART A & B [employer] CROSS MEDEX SUPPLEMENT Care Teams Land Sales Agent Relationship Specialty Start Date End Date Pcp, Unknown PCP - General 01/04/25 Aries Giles MD [address] [place] [id number] [email or web address] Insurance Assigned Provider 12/26/23 Additional Source Comments The information contained in this document represents components of the legal health record. It is not the complete legal health record.[facility]
== END 2025-05-18 09:20 | disposition home or self-care (01) ==
LOC: HO.ACS 08:51
PROVIDERS: Visit Provider Internal Medicine Medical Oncology
DX: Z79.01 Long term (current) use of anticoagulants (principal)

== ENCOUNTER → 2025-05-18 08:51 | Outpatient (BNVA) | payer MEDICARE, SELFPAY | PROVIDERS: Visit Provider Internal Medicine Medical Oncology | DX: Z51.81 Encounter for therapeutic drug level monitoring (principal); Z79.01 Long term (current) use of anticoagulants | CPT/HCPCS: 85610; 99211 ==

== ENCOUNTER 2025-06-01 10:16 | Outpatient (REF) | payer MEDICARE, SELFPAY ==
--- NOTE | ~2025-06-01 | US_ITS ---
EXAMINATION: BILATERAL CAROTID ULTRASOUND WITH DOPPLER HISTORY: I65.29 - Occlusion and stenosis of unspecified carotid artery COMPARISON: Comparison is made with the prior examination dated 08/18/2022. TECHNIQUE: Real time and Color and Spectral doppler ultrasonography of the carotid and vertebral arteries was performed in multiple planes. FINDINGS: There is a mild amount of plaque in both proximal internal carotid arteries. VERTEBRAL FLOW DIRECTION: Antegrade bilaterally. PEAK SYSTOLIC VELOCITIES (in cm/sec): RIGHT: CCA: Prox: 67 Dist: 55 ICA: Prox: 58 Mid: 66 Dist: 52 ICA/CCA Ratio: 0.87 ECA: 72 Peak ICA end diastolic velocity (EDV): 16 LEFT: CCA: Prox: 92 Dist: 55 ICA: Prox: 209 Mid: 229 Dist: 72 ICA/CCA Ratio: 2.27 ECA: 85 Peak ICA end diastolic velocity (EDV): 52 US/US carotid duplex BI IMPRESSION: 1. Findings consistent with 0-49% stenosis of the right internal carotid artery. 2. Findings consistent with 50-79% stenosis of the left internal carotid artery. Electronically signed by: Avila Nazario MD 06/01/2025 11:17 AM EDT
[2025-06-01 12:57] LABS: Appearance Urine Clear; Glucose Urine UA Negative (Negative); PH 6.5 (5.0-9.0); Specific Gravity - Urine 1.015 (1.005-1.025); UMIC TRIGGER UACC YES
[2025-06-01 13:11] LABS: UACC Culture Trigger YES
== END 2025-06-01 10:17 | disposition home or self-care (01) ==
LOC: HO.US 10:16
PROVIDERS: Visit Provider Registered Nurse
DX: I65.22 Occlusion and stenosis of left carotid artery (principal); R35.89 Other polyuria
CPT/HCPCS: 81001; 81003; 87086; 93880

== ENCOUNTER → 2025-06-01 10:20 | Outpatient (BNV) | payer MEDICARE, SELFPAY | PROVIDERS: Visit Provider Radiology Diagnostic Radiology | DX: I65.23 Occlusion and stenosis of bilateral carotid arteries (principal) | CPT/HCPCS: 93880 ==

== ENCOUNTER 2025-06-16 08:51 | Outpatient (AMB) | payer MEDICARE, SELFPAY ==
[2025-06-16 08:58] LABS: Prothrombin Time Whole Bld POC 25.6 sec (11.1-13.5); ~PT, ~INR - Anti Coag Clinic 2.1 (0.9-1.1)
--- NOTE | 2025-06-16 09:06 | MHC.OFFVISCO ---
Intake Intake Visit Reasons: Anticoagulation Allergies rosuvastatin Adverse Reaction (Intermediate, Verified 06/16/25 08:52) Weakness meloxicam Allergy (Intermediate, Uncoded 06/16/25 08:52) Nausea Medication List - Last Reconciled 06/16/25 by Bev Laws, RN ascorbic acid (vitamin C) mg PO DAILY aspirin 81 mg PO DAILY atenolol 12.5 mg PO DAILY cholecalciferol (vitamin D3) PO DAILY docusate sodium (Colace Clear) PO PRN ezetimibe 10 mg PO DAILY fluticasone propionate 50 mcg/actuation 1 spray intranasal DAILY PRN losartan 25 mg PO DAILY [omega 3 pt states 1 cap daily 500mg ] [id number] 5-325-200 mg (Mucinex Sinus-Max Severe Congestion Relief) 2 tabs PO Q4-6H PRN [RED[employer] GRE[employer] SUPPLEMENT 1 cap daily of each supplement ] warfarin 2.5 mg See Protocol PO DAILY Nursing Note INR: 2.1 in therapeutic range of 2-3 Medications and supplements reviewed No changes in health, diet, medications, or supplements, Denies any signs and symptoms of bleeding or bruising or clotting. Bleeding, bruising, clotting discussed Nutritional guidance given to avoid greens X 2 days and to have a serving or two of foods that raise the INR Dose: 1.25mg X 6 days and 2.5mg X 1 day F/U INR: 4 weeks Patient verbalizes understanding of instructions given Anti-Coag Initial Assessment Social Hx Patient Tobacco Use Status: Never used Tobacco alcohol intake: never Alcohol intake frequency: does not drink Coding Level of Care Code Est Patient Level 1 Diagnoses Current use of anticoagulant therapy Z79.01 Assessment & Plan Assessment & Plan (1) Current use of anticoagulant therapy: Code(s): Z79.01 - long term care phlebotomist (current) use of anticoagulants Category: Medical
--- OUTSIDE RECORDS SUMMARY | 2025-06-16 09:27 | XMS_ITS | Clinical Summary ---
Author Organization [facility] Address [address] [place] [address] [address] [place] [address] Phone Care Team Providers Care Program Coordinator For Residence Life Name Role Phone Aries Giles MD Unavailable [phone] Pcp, Unknown Primary Care Provider Unavailabl e [...] Skin lesions 05/07/2024 Overview (05/07/2024): Seen at [place] derm 05/06/24, by Dr. Guille Blanco- f/u [...] Type Department Care Team Description 04/28/2025 Refill [facility] Internal Medicine [address] [place] [address] Aries Giles MD Medication Refill from Last 3 Months Immunizations Immunization Administration [...] VACCINE (1 - 1-dose 75+ series) 2012 HEMOGLOBIN A1C 06/28/2024 12/28/2023, 06/21, 07/09/2023, Additional history exists Adult Td,Tdap Booster 06/30/2024 06/30/2014, 004 DEPRESSION SCREENING 07/10/2024 07/10/2023 DIABETIC EYE EXAM 01/10/2025 01/11/2024, , 03/19/2020 CREATININE LEVEL 03/15/2025 03/15/2024, 04/2024, 08/18/2023, Additional history exists LIPID PANEL 03/15/2025 03/15/2024, 04/0 04/2024, 12/22/2022, Additional history exists POTASSIUM LEVEL 03/15/2025 03/15/2024, 04/0 04/2024, 08/18/2023, Additional history exists INFLUENZA VACCINE (#1) 2025 , 07/10/2023, 06/24/2021, Additional history exists COVID-19 VACCINE ( season) 2025 PNEUMOCOCCAL VACCINES (50+ years) Completed 05/03/2020, 01/05/2015, [...] polyneuropathy, without long-term current use of insulin HM DIABETES EYE EXAM FOR RESULT ENTRY ONLY Routine 01/11/2024 3:16 PM EDT HEMOGLOBIN A1C Routine 12/28/2023 8:19 AM EDT Type 2 diabetes mellitus with diabetic polyneuropathy, without long-term current use of insulin from Last 3 Months or Most Recently Relevant to Health Maintenance Results * (ABNORMAL) Comprehensive metabolic panel (03/15/2024 7:49 AM EDT) SODIUM 141 133 - 146 mmol/L [facility] POTASSIUM 4.3 3.3 - 5.1 mmol/L [facility] CHLORIDE 104 96 - 108 mmol/L [facility] CO2 28 21 - 35 mmol/L [facility] BUN 15 6 - 19 mg/dL [facility] CREATININE 0.60 0.5 - 1.5 mg/dL [facility] GLUCOSE 115(H) 70 - 99 mg/dL [facility] ALBUMIN 4.3 3.9 - 4.8 g/dL [facility] TOTAL PROTEIN 7.1 6.5 - 8.0 g/dL [facility] CALCIUM 9.6 8.4 - 10.3 mg/dL [facility] ALKALINE PHOSPHATASE 77 39 - 117 U/L [facility] TOTAL BILIRUBIN 1.1 0.0 - 1.2 mg/dL [facility] AST 26 0 - 37 U/L [facility] ALT 13 0 - 40 U/L [facility] GLOBULIN 2.8 1 - 4.8 g/dL [facility] EGFR 87 >59 mL/min/1.7 3m2 [facility] Comment:Estimated glomerular filtration rate calculated using the CKD-EPI refit equation. ANION GAP 13 10 - 20 mmol/L [facility] Blood 03/15/2024 7:49 AM EDT 03/15/2024 7:51 AM EDT us Aries Giles MD LAB BLOOD ORDERABLES Final Re sult [facility] [address] [place] [address] * (ABNORMAL) Lipid panel (03/15/2024 7:49 AM EDT) HDL 57 mg/dL [facility] Comment: Interpretation <40 mg/dL: Low HDL cholesterol (major risk factor for CHD) Greater than or equal to 60 mg/dL: High HDL cholesterol ( negative risk factor for CHD) HDL - cholesterol is affected by a number of factors, e.g. smoking, excerise, hormones, sex and age. CHOLESTEROL 148 0 - 240 mg/dL [facility] TRIGLYCERIDES 125 30 - 160 mg/dL [facility] LDL 66 50 - 129 mg/dL [facility] Comment: LDL levels in terms of risk for coronary heart disease: <100 mg/dL: Optimal 100-129 mg/dL: Near or above optimal 130-159 mg/dL: Borderline high 160-189 mg/dL: High >190 mg/dL: Very High CARDIAC RISK RATIO 2.6(L) 3.3 - 4.4 [facility] Blood 03/15/2024 7:49 AM EDT 03/15/2024 7:51 AM EDT Aries Giles MD LAB BLOOD ORDERABLES Final Re sult Performing Organization Address [facility] Co de Phone Number [address] [address] * DIABETES EYE EXAM FOR RESULT ENTRY ONLY (01/11/2024 3:16 PM EDT) Uma Beck MD HEALTH MAINTENANCE Final Result * (ABNORMAL) Hemoglobin A1c (12/28/2023 8:19 AM EDT) HEMOGLOBIN A1C 6.1(H) 4.3 - 5.8 % [facility] Blood 12/28/2023 8:19 AM EDT 12/28/2023 8:23 AM EDT Aries Giles MD LAB BLOOD ORDERABLES Final Re sult Performing Organization Address City/[facility]/ZIP Co de Phone Number [address] [address] from Last 3 Months or Most Recently Relevant to Health Maintenance Insurance MEDICARE PART A & B [employer] SUPPLEMENT MEDICARE PART A & B [employer] SUPPLEMENT MEDICARE PART A & B [email or web address] MEDEX SUPPLEMENT MEDICARE PART A & B [email or web address] MEDEX SUPPLEMENT MEDICARE PART A & B [email or web address] MEDEX SUPPLEMENT MEDICARE PART A & B [employer] MEDEX SUPPLEMENT MEDICARE PART A & B [employer]OSS MEDEX SUPPLEMENT MEDICARE PART A & B [employer] SUPPLEMENT MEDICARE PART A & B [employer] MED[employer] SUPPLEMENT Care Teams Program Coordinator For Residence Life Relationship Specialty Start Date End Date Pcp, Unknown PCP - General 01/04/25 Aries Giles MD [address] [place] [address] [email or web address] Insurance Assigned Provider 12/26/23 Additional Source Comments The information contained in this document represents components of the legal health record. It is not the complete legal health record.[facility]
== END 2025-06-16 10:44 | disposition home or self-care (01) ==
LOC: HO.ACS 08:51
PROVIDERS: Visit Provider Internal Medicine Medical Oncology
DX: Z79.01 Long term (current) use of anticoagulants (principal)

== ENCOUNTER → 2025-06-16 08:51 | Outpatient (BNVA) | payer MEDICARE, SELFPAY | PROVIDERS: Visit Provider Internal Medicine Medical Oncology | DX: Z51.81 Encounter for therapeutic drug level monitoring (principal); Z79.01 Long term (current) use of anticoagulants | CPT/HCPCS: 85610; 99211 ==

== ENCOUNTER 2025-07-14 09:04 | Outpatient (AMB) | payer MEDICARE, SELFPAY ==
[2025-07-14 09:20] LABS: Prothrombin Time Whole Bld POC 26.5 sec (11.1-13.5); ~PT, ~INR - Anti Coag Clinic 2.2 (0.9-1.1)
--- NOTE | 2025-07-14 09:24 | MHC.OFFVISCO ---
Intake Intake Visit Reasons: Anticoagulation Allergies rosuvastatin Adverse Reaction (Intermediate, Verified 07/14/25 09:14) Weakness meloxicam Allergy (Intermediate, Uncoded 07/14/25 09:14) Nausea Medication List - Last Reconciled 07/14/25 by Bev Laws, RN ascorbic acid (vitamin C) mg PO DAILY aspirin 81 mg PO DAILY atenolol 12.5 mg PO DAILY cholecalciferol (vitamin D3) PO DAILY docusate sodium (Colace Clear) PO PRN ezetimibe 10 mg PO DAILY fluticasone propionate 50 mcg/actuation 1 spray intranasal DAILY PRN losartan 25 mg PO DAILY [omega 3 pt states 1 cap daily 500mg ] jlpfcmfbxyptc-gwohnjqycvqrm-PA 5-325-200 mg (Mucinex Sinus-Max Severe Congestion Relief) 2 tabs PO Q4-6H PRN [REDS AND GREENS SUPPLEMENT 1 cap daily of each supplement ] warfarin 2.5 mg See Protocol PO DAILY Nursing Note INR: 2.2 in therapeutic range of 2-3 Medications and supplements reviewed No changes in health, diet, medications, or supplements, Denies any signs and symptoms of bleeding or bruising or clotting. Bleeding, bruising, clotting discussed Nutritional guidance given Dose: 1.25mg X 6 days and 2.5mg X 1 day (Mon) F/U INR: 4 weeks Patient verbalizes understanding of instructions given Anti-Coag Initial Assessment Social Hx Patient Tobacco Use Status: Never used Tobacco alcohol intake: never Alcohol intake frequency: does not drink Coding Level of Care Code Est Patient Level 1 Diagnoses Current use of anticoagulant therapy Z79.01 Results AMB INR Fingerstick AMB INR Fingerstick 2.2 Last Edit by Bev Laws, RN on 07/14/25 09:23 interface delay Assessment & Plan Assessment & Plan (1) Current use of anticoagulant therapy: Code(s): Z79.01 - residential (current) use of anticoagulants Category: Medical
== END 2025-07-14 09:35 | disposition home or self-care (01) ==
LOC: HO.ACS 09:04
PROVIDERS: Visit Provider Internal Medicine Medical Oncology
DX: Z79.01 Long term (current) use of anticoagulants (principal)

== ENCOUNTER → 2025-07-14 09:04 | Outpatient (BNVA) | payer MEDICARE, SELFPAY | PROVIDERS: Visit Provider Internal Medicine Medical Oncology | DX: Z86.73 Personal history of transient ischemic attack (TIA), and cerebral infarction without residual deficits (principal); Z51.81 Encounter for therapeutic drug level monitoring; Z79.01 Long term (current) use of anticoagulants | CPT/HCPCS: 85610; 99211 ==

== ENCOUNTER 2025-08-02 08:51 | Outpatient (AMB) | payer MEDICARE, SELFPAY ==
--- NOTE | 2025-08-02 09:15 | MHC.OFFVIS ---
Intake Visit Reasons: 6m stenosis Allergies rosuvastatin Adverse Reaction (Intermediate, Verified 07/14/25 09:14) Weakness meloxicam Allergy (Intermediate, Uncoded 07/14/25 09:14) Nausea Medication List - Last Reconciled 08/02/25 by Rosalind Menon MD ascorbic acid (vitamin C) mg PO DAILY aspirin 81 mg PO DAILY atenolol 12.5 mg PO DAILY cholecalciferol (vitamin D3) PO DAILY docusate sodium (Colace Clear) PO PRN fluticasone propionate 50 mcg/actuation 1 spray intranasal DAILY PRN losartan 25 mg PO DAILY [omega 3 pt states 1 cap daily 500mg ] dxhjqmfgmdhcm-wbsboymwqyeem-FN 5-325-200 mg (Mucinex Sinus-Max Severe Congestion Relief) 2 tabs PO Q4-6H PRN [REDS AND GREENS SUPPLEMENT 1 cap daily of each supplement ] warfarin 2.5 mg See Protocol PO DAILY HPI Comments Details: 89 yr old woman with h/o strokein 2017. rarely has some word finding difficulties, increased in last 3-4 months. 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 Using CPAP nightly. At times her neck gets tight, can't relax. Uses a cane for balance and walks slowly. No dizzy spells. Her balance is still off since the fall on 10/18/18 especially when she is outside. She had a traumatic SAH . She is doing well with no SASMON. Shoulder is sore and started PT. She has recovered completely from her stroke on 05/26/17. No speech problems. No chest pain or palpitation. MRI of the brain was done which showed small multiple acute infarcts on DWI in the left frontoparietal deep white matter as well as punctate acute infarcts in the left occipital lobe and in the temporal lobe in the insular area suggestive of embolic infarcts. Still reads and keeps notes. Sean 03/05/25 [facility] 89 [facility]. 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 [facility] Medical History (Updated 08/02/25 @ 09:25 by Rosalind Menon MD) Subarachnoid hemorrhage Sleep apnea HLD (hyperlipidemia) HTN (hypertension) Cataract TIA (transient ischemic attack) Surgical History History of cataract surgery Hx of appendectomy Social History Housing: House Alcohol intake: never Patient Tobacco Use Status: Never used Tobacco e-Cigarette/Vaping Use: Never Used Second Hand Smoke Exposure: No service: No Current occupational status: retired Cognitive needs: Yes (walker) Hearing needs: No Vision needs: Yes (Glasses) Review of Systems Const Details: General/Constitutional:? Change in appetitedenies.? Fatiguedenies.? Feverdenies.? Weight gaindenies.? Weight lossdenies. ???Sleep:? Difficulty getting to sleepdenies.? Difficulty maintaining sleepdenies?.? Daytime sleepinessdenies. ???Respiratory:? Shortness of breathdenies.? Chest paindenies. ???Cardiovascular:? Chest pain at restdenies.? Chest pain with exertiondenies.? Dizzinessdenies.? Fluid accumulation in the legsdenies.? Irregular heartbeatdenies.? Palpitationsdenies. ???Gastrointestinal:? Constipationdenies.? Diarrheadenies.? Difficulty swallowingdenies.? Heartburndenies.? Nauseadenies. ???Genitourinary:? Frequent urinationdenies.? Urgencydenies.? Incontinencedenies. ???Musculoskeletal:? Neck paindenies.? Back paindenies.? Joint stiffnessadmits.? Sciaticadenies. ???Neurologic:? Difficulty swallowingdenies.? Balance difficultydenies.? Coordinationnormal.? Difficulty speakingdenies.? Dizzinessdenies.? Faintingdenies.? Gait abnormalitydenies.? Headachedenies.? Loss of strengthdenies.? Loss of use of extremitydenies.? Low back paindenies.? Memory lossdenies.? Seizuresdenies.? Ticsdenies.? Tingling/Numbnessdenies.? Transient loss of visiondenies.? Tremordenies. ???Psychiatric:? Anxietyadmits.? Auditory/visual hallucinationsdenies.? Delusionsdenies.? Depressed mooddenies.? Stressorsadmits.? Suicidal thoughtsdenies Physical Exam Neuro Other: Neurological: Abnormal neurological findings:??none.?Mental Status:??alert and oriented X 3,?Normal attention, orientation, memory and affect.?Cranial Nerves:??Pupils are equal, round and reactive to light. Fundoscopy shows normal disc bilaterally. External occular muscles are intact. Visual valedz are full, no ptosis. Face is symmetrical, no facial weakness or droop. Facial sensations are normal. Tongue protrudes in midline. Palate elevates symmetrically. Shoulder shrugging is normal..?Motor Examination:??Normal muscle tone, bulk and strength,?No atrophy or fasciculations,?No drift of the extended upper extremities,?Deep tendon reflexes are 2+?,?Plantars are flexor?.?Straight Leg Raising:??90 degrees.?Sensory Exam:??Normal light touch, temperature, pinprick, vibration and joint-position sensations?,?Rhomberg sign is absent.?Coordination:??no ataxia,?no titubation,?tliqfn-hg-bnow, inse-lbze-dmok test and rapid alternating movements were normal.?Gait Exam:??Walks with walker.?Cerebellar Signs:??Flphzy-wx-rchg and tdsz-ho-ffct is normal,?no dysdiadochokinesia?.?Extrapyramidal System:??No tremor, rigidity with normal facial expressions,?No bradykinesia, no bradyphrenia. Normal arm swing and posture. No propulsion or retropulsion.?Speech:??Normal,?no dysphasia or dysarthria..? Mini Mental Status Exam: Level of Consciousness:??Alert.?Orientation:??Knows correct year, month, date, day and season,?Knows correct city, county and state. Knows correct location and floor.?Registration:??Able to register 3 objects.?Attention:??Serial 7's performed accurately.?Recall:??Able to recall 3 out of 3 objects.?Language:??Normal spontaneous speech, fluency, repetition,naming, comprehension, reading and writing.?Total Score:??30/30.? 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 08/29/19 Carotid US LICA 50-79% stenosis.09/03/20 Carotid US LICA 50-79% stenosis.08/18/22 US shows 50-79% LICA stenosis unchanged. 06/01/25 Carotid US: 0-49% stenosis of the right internal carotid artery, and 50-79% stenosis of the left internal carotid artery. (unchanged) Code(s): I63.9 - Cerebral infarction, unspecified Category: Medical (2) Subarachnoid hemorrhage: Comment: Remote traumatic SAH. No clinical consequences. Code(s): I60.9 - Nontraumatic subarachnoid hemorrhage, unspecified Category: Medical (3) Sleep apnea: Comment: uses CPAP nightly Code(s): G47.30 - Sleep apnea, unspecified Category: Medical (4) MCI (mild cognitive impairment) with memory loss: Code(s): G31.84 - Mild cognitive impairment of uncertain or unknown etiology Category: Medical Plan Continue current meds. Walk for exercise and stay busy mentally, reading and social interaction. Coding Level of Care Code Est Pt Level 4 (13076) Diagnoses CVA (cerebral vascular accident) I63.9 Subarachnoid hemorrhage I60.9 Sleep apnea G47.30 MCI (mild cognitive impairment) with memory loss G31.84
--- OUTSIDE RECORDS SUMMARY | 2025-08-02 09:20 | XMS_ITS | Clinical Summary ---
Author Organization [facility] Address [address] [place] [address] Drive [address] [place] [address] Phone Care Team Providers Care Implementation Project Manager Name Role Phone Aries Giles MD Unavailable [phone] Pcp, Unknown Primary Care Provider Unavailabl e [...] Skin lesions 05/07/2024 Overview (05/07/2024): Seen at [place] derm 05/06/24, by Dr. Guille Blanco- f/u [...] Encounters Date Type Department Care Team Description 07/17/2025 Refill [facility] Internal Medicine [address] [place] [address] Aries Giles MD Medication Refill from Last [...] on patient's age to complete this topic IPV VACCINES Aged Out No longer eligi ble [...] current use of insulin COMPREHENSIVE METABOLIC PANEL (CMP) Routine 03/15/2024 7:49 AM EDT Pure hypercholesterolem [...] EDT) SODIUM 141 133 - 146 mmol/L [facility] POTASSIUM 4.3 3.3 - 5.1 mmol/L [facility] CHLORIDE 104 96 - 108 mmol/L [facility] CO2 28 21 - 35 mmol/L [facility] BUN 15 6 - 19 mg/dL [facility] CREATININE 0.60 0.5 - 1.5 mg/dL [facility] GLUCOSE 115(H) 70 - 99 mg/dL [facility] ALBUMIN 4.3 3.9 - 4.8 g/dL [facility] TOTAL PROTEIN 7.1 6.5 - 8.0 g/dL [facility] CALCIUM 9.6 8.4 - 10.3 mg/dL [facility] ALKALINE PHOSPHATASE 77 39 - 117 U/L [facility] TOTAL BILIRUBIN 1.1 0.0 - 1.2 mg/dL [facility] AST 26 0 - 37 U/L [facility] ALT 13 0 - 40 U/L [facility] GLOBULIN 2.8 1 - 4.8 g/dL [facility] EGFR 87 >59 mL/min/1.7 3m2 [facility] Comment:Estimated glomerular filtration rate calculated using the CKD-EPI refit equation. ANION GAP 13 10 - 20 mmol/L [facility] Blood 03/15/2024 7:49 AM EDT 03/15/2024 7:51 AM EDT us Aries Giles MD LAB BLOOD BKR ORDERABLES Basilia owusu Result [facility] [address] [place] [address] * (ABNORMAL) Lipid panel (03/15/2024 7:49 AM EDT) HDL 57 mg/dL [facility] Comment: Interpretation <40 mg/dL: Low HDL cholesterol (major risk factor for CHD) Greater than or equal to 60 mg/dL: High HDL cholesterol ( negative risk factor for CHD) HDL - cholesterol is affected by a number of factors, e.g. smoking, excerise, hormones, sex and age. CHOLESTEROL 148 0 - 240 mg/dL [facility] TRIGLYCERIDES 125 30 - 160 mg/dL [facility] LDL 66 50 - 129 mg/dL [facility] Comment: LDL levels in terms of risk for coronary heart disease: <100 mg/dL: Optimal 100-129 mg/dL: Near or above optimal 130-159 mg/dL: Borderline high 160-189 mg/dL: High >190 mg/dL: Very High CARDIAC RISK RATIO 2.6(L) 3.3 - 4.4 C [facility] Blood 03/15/2024 7:49 AM EDT 03/15/2024 7:51 AM EDT Aries Giles MD LAB BLOOD BKR ORDERABLES Basilia l Result Performing Organization Address [facility] Co de Phone Number [address] [address] * DIABETES EYE EXAM FOR RESULT ENTRY ONLY (01/11/2024 3:16 PM EDT) Uma Beck MD HEALTH MAINTENANCE Final Result * (ABNORMAL) Hemoglobin A1c (12/28/2023 8:19 AM EDT) HEMOGLOBIN A1C 6.1(H) 4.3 - 5.8 % [facility] Blood 12/28/2023 8:19 AM EDT 12/28/2023 8:23 AM EDT Aries Giles MD LAB BLOOD BKR ORDERABLES Basilia l Result Performing Organization Address City/[facility] Co de Phone Number [address] [address] from Last 3 Months or Most Recently Relevant to Health Maintenance Insurance MEDICARE PART A & B [employer] SUPPLEMENT MEDICARE PART A & B [employer] SUPPLEMENT MEDICARE PART A & B [employer] SUPPLEMENT MEDICARE PART A & B [employer] MED[employer] SUPPLEMENT MEDICARE PART A & B [facility] MEDEX SUPPLEMENT MEDICARE PART A & B [employer] MEDEX SUPPLEMENT MEDICARE PART A & B [employer] MEDEX SUPPLEMENT MEDICARE PART A & B [employer] SUPPLEMENT MEDICARE PART A & B [employer] SUPPLEMENT Care Teams Implementation Project Manager Relationship Specialty Start Date End Date Pcp, Unknown PCP - General 01/04/25 Aries Giles MD [address] [place] [id number] [email or web address] Insurance Assigned Provider 12/26/23 Additional Source Comments The information contained in this document represents components of the legal health record. It is not the complete legal health record.[facility]
--- OUTSIDE RECORDS SUMMARY | 2025-08-02 09:20 | XMS_ITS | Encounter Summary ---
Author Organization [facility] Address [address] [place] [address] Phone Care Team Providers Care Ramp Jockey Name Role Phone Aries Giles MD Unavailable [phone] Pcp, Unknown Primary Care Provider Unavailabl e Reason for Visit * Reason Comments Medication Refill Encounter Details Date Type Department Care Team (Late st Contact Info) Description 07/17/2025 Refill [facility] Internal Medicine [address] [place] [address] Aries Giles MD [address] [place] [address] [email or web address] Medication Refill Social History Tobacco Use Types Packs/Day Years Used Date Smoking Tobacco: Never Smokeless Tobacco: Never Alcohol Use Standard Drinks/Week Comments Not Currently [...] on file Sexual Orientation Not on file documented as of this encounter Progress Notes * Vero White [place] - 07/17/2025 11:16 AM EDT Pt sought care elsewhere documented in this encounter Plan of Treatment Not on file documented as of this encounter Visit Diagnoses Diagnosis Atrial fibrillation documented in this encounter Additional Health Concerns Assessment Noted Time PHQ-2 Depression Total Score: 0 07/10/20 23 9:31 AM EDT documented as of this encounter Care Teams Ramp Jockey Relationship Specialty Start Date End Date Pcp, Unknown PCP - General 01/04/25 Aries Giles MD [address] [place] [id number] [email or web address] Insurance Assigned Provider 12/26/23 documented as of this encounter Additional Source Comments The information contained in this document represents components of the legal health record. It is not the complete legal health record.[facility]
== END 2025-08-02 09:39 | disposition home or self-care (01) ==
LOC: HO.HSM 08:52
PROVIDERS: Referring Provider Internal Medicine; Visit Provider Psychiatry & Neurology Neurology
DX: I63.9 Cerebral infarction, unspecified (principal); I60.9 Nontraumatic subarachnoid hemorrhage, unspecified; G47.30 Sleep apnea, unspecified; G31.84 Mild cognitive impairment of uncertain or unknown etiology
CPT/HCPCS: 99214

== ENCOUNTER → 2025-08-02 08:51 | Outpatient (BNVA) | payer MEDICARE, SELFPAY | PROVIDERS: Referring Provider Internal Medicine; Visit Provider Psychiatry & Neurology Neurology | DX: I10 Essential (primary) hypertension (principal); I63.9 Cerebral infarction, unspecified; I60.9 Nontraumatic subarachnoid hemorrhage, unspecified; G47.33 Obstructive sleep apnea (adult) (pediatric); Z99.89 Dependence on other enabling machines and devices; Z79.82 Long term (current) use of aspirin | CPT/HCPCS: 99212 ==

== ENCOUNTER 2025-08-10 16:18 | Emergency (ER) | payer MEDICARE, SELFPAY ==
[2025-08-10] VITALS (7 sets, daily range): BP systolic 160–218; BP diastolic 68–98; PULSE 60–72; RESP 16–20; TEMP 36–36.9; O2SAT 97–99; BMI 29.2
--- NOTE | ~2025-08-10 | CT_ITS ---
CLINICAL HISTORY: hypertensive headache CT of the head without contrast. Comparison 01/05/2025. Findings: There is mild atrophy with nonspecific white matter changes. No acute hemorrhage or infarct is seen. There is no hydrocephalus or mass effect. Impression: No acute intracranial abnormality is identified. 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 Prominent mucosal thickening left sphenoid sinus. This document has been electronically signed by: Chauncey Bustos MD on 08/10/2025 19:27:54
--- NOTE | ~2025-08-10 | CT_ITS ---
CLINICAL HISTORY: posterior neck pain CT cervical spine without contrast. No comparison. Findings: There is prominent mucosal thickening of the left sphenoid sinus. No acute fractures are seen. There is no significant subluxation. There are prominent degenerative changes. There are changes of dish. Impression: Chronic findings as described. No definite acute abnormality is seen. This document has been electronically signed by: Chauncey Bustos MD on 08/10/2025 19:23:43
--- NOTE | 2025-08-10 16:45 | ECG_ITS ---
Test Reason : htn Blood Pressure : */* mmHG Vent. Rate : 67 BPM Atrial Rate : 67 BPM P-R Int : 216 ms QRS Dur : 100 ms QT Int : 422 ms P-R-T Axes : 52 -34 51 degrees QTcB Int : 445 ms Sinus rhythm with 1st degree A-V block Left axis deviation Minimal voltage criteria for LVH, may be normal variant ( [place] product ) Possible Anterior infarct (cited on or before 07-May-2023) Abnormal ECG When compared with ECG of 05-Jan-2025 09:26, No significant change was found Referred By: Quincy Burdick Electronically Signed By: CHARLES DE LA CRUZ
--- NOTE | 2025-08-10 16:45 | ED.GENADULT ---
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 Earlier in the week she experienced persistent sneezing without congestion or fever and self-treated with an OTC antihistamine ([facility] generic cetirizine) with gradual improvement. Head discomfort is described as soreness over the right lateral scalp and another small focal area; pain is not constant and is worse in certain positions (e.g., reclining chair, head flexed forward). She reports mild associated sweating. Home BP improved to 169 mm Hg, then radha to 180 mm Hg before leaving for the ED; BP lower on ED arrival. No nausea, vomiting, visual changes or focal neurologic deficits. Takes acetaminophen 500 mg once in the morning and once at night with partial relief. Denies loss of consciousness. She had a minor head bump against a wall during a near-fall last week without LOC or subsequent symptoms. Patient reports her balance is impaired and she must watch it closely; last week, she tripped over her Skecher shoe after not lifting her foot high enough, turned slightly, and bumped her head against the wall but did not fall to the ground. Did not seek care after the fall. Related Data Home Medications ?Medication ?Instructions ?Recorded ?Confirmed aspirin 81 mg capsule 81 mg PO DAILY 10/29/22 08/02/25 omega 3 PO 07/08/23 08/02/25 ascorbic acid (vitamin C) 500 mg mg PO DAILY 01/15/24 08/02/25 capsule cholecalciferol (vitamin D3) PO DAILY 01/15/24 08/02/25 fluticasone propionate 50 1 spray intranasal DAILY PRN 01/15/24 08/02/25 mcg/actuation nasal spray,suspension cugrbktelyyuz-cnhhfwjobjqxe-tsprrklzjgt 2 tab PO Q4-6H PRN 01/15/24 08/02/25 5 mg-325 mg-200 mg tablet (Mucinex Sinus-Max Severe Congestion Relief) atenolol 25 mg tablet 12.5 mg PO DAILY 12/08/24 08/02/25 docusate sodium [Colace Clear] PO PRN 12/16/24 08/02/25 REDS AND GREENS SUPPLEMENT PO PRN 01/30/25 08/02/25 Previous Rx's ?Medication ?Instructions ?Recorded warfarin 2.5 mg tablet 2.5 mg PO DAILY #90 tabs 06/22/20 losartan 25 mg tablet 25 mg PO DAILY #90 tabs 03/23/25 Allergies Allergy/AdvReac Type Severity Reaction Status Date / Time rosuvastatin AdvReac Intermediate Weakness Verified 08/11/25 09:49 meloxicam Allergy Intermediate Nausea Uncoded 07/14/25 09:14 Review of Systems Review of Systems: as per HPI, full review of systems performed and negative but for the above mentioned pertinent positives and negatives. [facility] Past Medical History Medical History Subarachnoid hemorrhage Sleep apnea HLD (hyperlipidemia) HTN (hypertension) Cataract TIA (transient ischemic attack) Surgical History History of cataract surgery Hx of appendectomy Social History Social History Housing: House Alcohol intake: never Patient Tobacco Use Status: Never used Tobacco e-Cigarette/Vaping Use: Never Used Second Hand Smoke Exposure: No Advance Directives Date on File: 08/10/25 service: No Current occupational status: retired Cognitive needs: Yes (walker) Hearing needs: No Vision needs: Yes (Glasses) Physical Exam ED Exam Exam: GENERAL: Chronically ill-appearing, conversant, no acute distress. SKIN: Normal skin color for ethnicity, warm, dry, no rashes noted. HEENT: Normocephalic, atraumatic, no stridor, posterior oropharynx nonerythematous, EOMI. NECK: Soft, supple, full ROM, midline structures nontender, no step-offs, no deformities, no lymphadenopathy. CHEST: Heart regular rate and rhythm, no murmurs, symmetric chest rise and fall. PULMONARY: Clear to auscultation bilaterally, no labored breathing, no wheezes/rhales/ rhonchi. ABDOMINAL: Soft, nondistended, nontender, positive bowel sounds in all quadrants. : Deferred. MUSCULOSKELETAL: Normal tone, full range of motion, no deformities, no peripheral edema. NEURO: Alert and oriented to person, CN II through XII intact, no focal neurologic deficits. PSYCHIATRIC: Flat affect, fluid speech, appropriate demeanor. Vital Signs: Vital Signs - 24 hr 08/10/25 16:37 08/10/25 17:41 08/10/25 18:14 Temperature 96.8 F 97.8 F Pulse Rate 67 68 60 Respiratory Rate 20 18 16 Blood Pressure 218/91 H 181/98 H 189/75 H Pulse Oximetry 99 99 99 Oxygen Delivery Method Room Air Room Air Room Air 08/10/25 20:03 08/10/25 21:07 08/10/25 22:11 Temperature 97.5 F 98.4 F Pulse Rate 65 63 61 Respiratory Rate 16 16 16 Blood Pressure 202/82 H 198/79 H 169/68 H Pulse Oximetry 99 97 98 Oxygen Delivery Method Room Air Room Air Room Air 08/10/25 23:59 Temperature 98.4 F Pulse Rate 72 Respiratory Rate 16 Blood Pressure 160/68 H Pulse Oximetry 98 Oxygen Delivery Method Room Air BMI result Body Mass Index 29.2 Course Course Course Narrative: RME: 39 year female presents to ED for elevated blood pressure with mild headache. Patient's systolic blood pressure is 218/91. NIH score is 0. Labs EKG head CT scan ordered. Patient will be placed inside the ED. Patient denies any head trauma. Medications Administered Discontinued Medications Generic Name Dose Route Start Last Admin Trade Name Freq PRN Reason Stop Dose Admin Acetaminophen 650 mg 08/10/25 22:02 08/10/25 22:26 Acetaminophen 325 Mg Tablet PO 08/10/25 22:03 650 mg ONCE ONE Administration Medical Decision Making Medical Decision Making [facility] Narrative: Patient presenting with chief complaint of high blood pressure. Differential diagnosis includes hypertensive urgency, hypertensive emergency, essential hypertension, uncontrolled hypertension, ACS, aortic dissection when accompanied with pain or neurologic dysfunction, renal insufficiency or injury, electrolyte abnormality, among many others. Blood work today is reassuring. Patient has no evidence of ACS on exam or in history. Kidney function is baseline. PT/INR is therapeutic. Extensive discussion regarding elevated blood pressure and pain response. Headache resolved after Tylenol. Using shared decision making, plan for discharge home to follow-up with primary care and/or specialist. Patient understands and agrees with plan for discharge. Discharged home in stable condition. Differential Diagnosis Differential Diagnoses: The differential diagnosis associated with the presentation includes (as above) Admission/Observation Consideration of admission/observation: Escalation of care including admission/observation considered Lab Data MDM Lab Attestation statement: I reviewed the patient's lab results. 08/10/25 17:16 08/10/25 17:16 Labs: Lab Results 08/10/25 08/10/25 Range/Units 17:16 21:09 WBC 6.9 (4.8-10.8) X10*3/uL RBC 4.39 (4.20-5.50) X10*6/uL Hgb 14.6 (12.0-16.0) g/dl Hct 42.3 (37.0-47.0) % MCV 96.4 (80.0-98.0) fL MCH 33.3 H (27.0-33.0) pg MCHC 34.5 (31.0-35.0) g/dl RDW 11.8 (11.0-16.0) % Plt Count 152 L (160-400) X10*3/uL MPV 9.8 (9.4-12.3) fL Immature Gran % (Auto) 0.1 (0.0-0.4) % Neut % (Auto) 60.6 (45-73) % Lymph % (Auto) 26.7 (20-40) % Waller % (Auto) 10.4 (2-11) % Eos % (Auto) 1.6 (0-4) % Baso % (Auto) 0.6 (0-2) % Lymph # (Auto) 1.8 (1.2-4.9) X10*3/uL Waller # (Auto) 0.7 (0.1-1.2) X10*3/uL Eos # (Auto) 0.1 (0.0-0.4) X10*3/uL Baso # (Auto) 0.0 (0.0-0.2) X10*3/uL Abs Immat Gran (auto) 0.01 (0.00-0.03) X10*3/uL Absolute Neuts (auto) 4.2 (2.0-8.3) x10*3/uL Absolute Nucleated RBC 0.000 (0.0-0.012) X10*3/uL Nucleated RBC % (auto) 0.0 (0.0-0.2) /100WBC PT 26.8 H (11.2-13.5) SEC INR 2.2 H (0.9-1.1) APTT 36.4 H (26.7-34.1) SEC Sodium 143 (135-145) mmol/L Potassium 4.4 (3.3-5.1) mmol/L Chloride 107 (96-108) mmol/L Carbon Dioxide 26 (22-29) mmol/L Anion Gap 14 (12-20) BUN 20 H (9-16) mg/dL Creatinine 0.79 (0.5-1.4) mg/dL Estim Creat Clear Calc 50.4 Estimated GFR > 60 Random Glucose 116 H (60-115) mg/dL Calcium 9.8 (8.4-10.2) mg/dL Total Bilirubin 0.7 (0.0-1.0) mg/dL AST 26 (5-31) U/L ALT 15 (0-31) U/L Alkaline Phosphatase 96 (39-117) U/L Troponin I High Sens 4.2 (<3.5-17.0) ng/L Total Protein 7.7 (6.5-8.0) g/dL Albumin 4.7 (3.5-5.0) g/dL Influenza Type A (PCR) NEGATIVE (Negative) Influenza Type B (PCR) NEGATIVE (Negative) RSV RNA Qual (PCR) NEGATIVE (Negative) SARS-CoV-2 RNA (RT-PCR) NEGATIVE (Negative) Independent Interpretation I performed an independent interpretation of an: EKG Interpretation: My independent interpretation of the ECG reveals normal sinus rhythm with rate of 67, leftward axis, 1st deg AVB IL 216, no ST elevations or depressions to suggest ischemic changes, relatively unchanged from previous on 01/05/25 Radiology Impression Discussion of test interpretation with radiology: I have reviewed the radiologist's reading. Independent Historian Clinical information obtained from an independent historian. History obtained from or confirmed by: Other (son) External Record Review External record reviewed: Inpatient record Chronic Conditions Patient?s care impacted by: Hypertension and Other (Afib, CVA) Discharge Plan Discharge Clinical Impression: Acute tension headache, Essential hypertension Patient Disposition: Home, Self-Care Instructions: Acute Headache (ED), Hypertension (ED) Additional Instructions: Follow up with your primary care doctor as soon as possible. Return to the emergency department sooner with any new or worsening symptoms including: Worsening headaches despite Tylenol, fevers greater than 100? associated with stiff neck, numbness/tingling/weakness of the extremities, facial droop, word-finding issues, any new symptom that concerns you. Call 911 with any medical emergency. Prescriptions: No Action losartan 25 mg tablet 25 mg PO DAILY Qty: 90 2RF warfarin 2.5 mg tablet 2.5 mg PO DAILY Qty: 90 0RF Protocol: Dose Management Condition: Thursday (Week One) Dose/Route: 1.25 mg Instruction: 0.5 x 2.5 mg tablets Condition: Thursday Dose/Route: 2.5 mg Instruction: 1 x 2.5 mg tablet Condition: Thursday Dose/Route: 1.25 mg Instruction: 0.5 x 2.5 mg tablets Condition: Thursday Dose/Route: 1.25 mg Instruction: 0.5 x 2.5 mg tablets Condition: Dose/Route: 1.25 mg Instruction: 0.5 x 2.5 mg tablets Condition: Thursday Dose/Route: 1.25 mg Instruction: 0.5 x 2.5 mg tablets Condition: Thursday Dose/Route: 1.25 mg Instruction: 0.5 x 2.5 mg tablets Condition: Thursday (Week Two) Dose/Route: 1.25 mg Instruction: 0.5 x 2.5 mg tablets Condition: Thursday Dose/Route: 2.5 mg Instruction: 1 x 2.5 mg tablet Condition: Thursday Dose/Route: 1.25 mg Instruction: 0.5 x 2.5 mg tablets Condition: Thursday Dose/Route: 1.25 mg Instruction: 0.5 x 2.5 mg tablets Condition: Dose/Route: 1.25 mg Instruction: 0.5 x 2.5 mg tablets Condition: Thursday Dose/Route: 1.25 mg Instruction: 0.5 x 2.5 mg tablets Condition: Thursday Dose/Route: 1.25 mg Instruction: 0.5 x 2.5 mg tablets Protocol Text: Adjustment Start Date: Thursday08/11/25 INR Value: 2.2 INR Date: 08/10/25 Recheck Date: 08/15/25 atenolol 25 mg tablet 12.5 mg PO DAILY aspirin 81 mg capsule 81 mg PO DAILY omega 3 PO Rx Instructions: pt states 1 cap daily 500mg REDS AND GREENS SUPPLEMENT PO PRN Rx Instructions: 1 cap daily of each supplement Mucinex Sinus-Max Sev Congestn 5-325-200 mg tablet 2 tab PO Q4-6H PRN ascorbic acid (vitamin C) 500 mg capsule PO DAILY cholecalciferol (vitamin D3) PO DAILY fluticasone propionate 50 mcg/actuation spray,suspension 1 spray intranasal DAILY PRN Rx Instructions: administer into each nostril docusate sodium [Colace Clear] PO PRN Interventions: ED Discharge Assessment Last Done: 08/10/25 23:59 Discharge Date/Time: 08/11/25 00:01 Print Language: Mongolian
[2025-08-10 17:22] LABS: MANUAL DIFF FLAG NO
[2025-08-10 17:28] LABS: Hematocrit 42.3 % (37.0-47.0); Hemoglobin 14.6 g/dl (12.0-16.0); Imm Gran Abs Auto 0.01 X10*3/uL (0.00-0.03); Imm Gran Pct Auto 0.1 % (0.0-0.4); Lymphocytes Absolute Auto 1.8 X10*3/uL (1.2-4.9); Mean Corpuscular HGB Conc 34.5 g/dl (31.0-35.0); Mean Corpuscular Hemoglobin 33.3 pg (27.0-33.0); Mean Corpuscular Volume 96.4 fL (80.0-98.0); NRBC Abs Auto 0.000 X10*3/uL (0.0-0.012); NRBC Pct Auto 0.0 /100WBC (0.0-0.2); Platelet Count 152 X10*3/uL (160-400); Red Blood Count 4.39 X10*6/uL (4.20-5.50); White Blood Count 6.9 X10*3/uL (4.8-10.8)
[2025-08-10 17:31] LABS: INTERNATIONAL NORM RATIO 2.2 (0.9-1.1); Prothrombin Time 26.8 SEC (11.2-13.5)
[2025-08-10 17:33] LABS: Partial Thromboplastin Time 36.4 SEC (26.7-34.1)
[2025-08-10 17:39] LABS: Alanine Aminotransferase 15 U/L (0-31); Albumin Level 4.7 g/dL (3.5-5.0); Alkaline Phosphatase 96 U/L (39-117); Anion Gap 14 (12-20); Aspartate Amino Transferase 26 U/L (5-31); Blood Urea Nitrogen 20 mg/dL (9-16); Calcium 9.8 mg/dL (8.4-10.2); Carbon Dioxide 26 mmol/L (22-29); Chloride 107 mmol/L (96-108); Creatinine Clr Calc Pharmacy 50.4; Estimated Glomerular Filt Rate > 60; Potassium 4.4 mmol/L (3.3-5.1); Sodium 143 mmol/L (135-145); Total Protein 7.7 g/dL (6.5-8.0)
[2025-08-10 17:46] LABS: Troponin-I High Sensitivity 4.2 ng/L (<3.5-17.0)
--- NOTE | 2025-08-10 20:00 | PC.NURSE ---
Assumed care of pt, presents to the ED for elevated BP, pt states BP at home was in the 200's SBP, pt also c/o neck stiffness and mild headache, aaox4, nad, 4/10 pain, family is at bedside
--- OUTSIDE RECORDS SUMMARY | 2025-08-10 21:03 | XMS_ITS | Encounter Summary ---
Author Organization [facility] Address [address] [place] [address] Phone Care Team Providers Care Oil Expeller Name Role Phone Aries Giles MD Unavailable [phone] Pcp, Unknown Primary Care Provider Unavailabl e Reason for Visit * Reason Comments Medication Refill Encounter Details Date Type Department Care Team (Late st Contact Info) Description 07/17/2025 Refill [facility] Internal Medicine [address] [place] [address] Aries Giles MD [address] [place] [address] [email or web address] Medication Refill Social History Tobacco Use Types [...] documented as of this encounter Care Teams Oil Expeller Relationship Specialty Start Date End Date Pcp, Unknown PCP - General 01/04/25 Aries Giles MD [address] [place] [phone] [email or web address] Insurance Assigned Provider 12/26/23 documented as of this encounter Additional Source Comments The information contained in this document represents components of the legal health record. It is not the complete legal health record.[facility]
--- OUTSIDE RECORDS SUMMARY | 2025-08-10 21:03 | XMS_ITS | Clinical Summary ---
Author Organization [facility] Address [address] [place] [address] Drive [address] [place] [address] Phone Care Team Providers Care Psychologist Private Practice Name Role Phone Aries Giles MD Unavailable [phone] Pcp, Unknown Primary Care Provider Unavailabl e [...] Skin lesions 05/07/2024 Overview (05/07/2024): Seen at [facility] 05/06/24, by Dr. Guille Blanco- f/u [...] Encounters Date Type Department Care Team Description 08/09/2025 Refill [facility] Internal Medicine [address] [place] [address] Aries Giles MD Medication Refill 07/17/2025 [facility] [address] [place] [address] Aries Giles MD Medication Refill from Last [...] EDT) SODIUM 141 133 - 146 mmol/L [facility] POTASSIUM 4.3 3.3 - 5.1 mmol/L [facility] CHLORIDE 104 96 - 108 mmol/L [facility] CO2 28 21 - 35 mmol/L [facility] BUN 15 6 - 19 mg/dL [facility] CREATININE 0.60 0.5 - 1.5 mg/dL [facility] GLUCOSE 115(H) 70 - 99 mg/dL [facility] ALBUMIN 4.3 3.9 - 4.8 g/dL [facility] TOTAL PROTEIN 7.1 6.5 - 8.0 g/dL [facility] CALCIUM 9.6 8.4 - 10.3 mg/dL [facility] ALKALINE PHOSPHATASE 77 39 - 117 U/L [facility] TOTAL BILIRUBIN 1.1 0.0 - 1.2 mg/dL [facility] AST 26 0 - 37 U/L [facility] ALT 13 0 - 40 U/L [facility] GLOBULIN 2.8 1 - 4.8 g/dL [facility] EGFR 87 >59 mL/min/1.7 3m2 [facility] Comment:Estimated glomerular filtration rate calculated using the CKD-EPI refit equation. ANION GAP 13 10 - 20 mmol/L [facility] Blood 03/15/2024 7:49 AM EDT 03/15/2024 7:51 AM EDT us Aries Giles MD LAB BLOOD BKR ORDERABLES Basilia owusu Result [facility] [address] [place] [address] * (ABNORMAL) Lipid panel (03/15/2024 7:49 AM EDT) HDL 57 mg/dL [facility] Comment: Interpretation <40 mg/dL: Low HDL cholesterol (major risk factor for CHD) Greater than or equal to 60 mg/dL: High HDL cholesterol ( negative risk factor for CHD) HDL - cholesterol is affected by a number of factors, e.g. smoking, excerise, hormones, sex and age. CHOLESTEROL 148 0 - 240 mg/dL [facility] TRIGLYCERIDES 125 30 - 160 mg/dL [facility] LDL 66 50 - 129 mg/dL [facility] Comment: LDL levels in terms of risk for coronary heart disease: <100 mg/dL: Optimal 100-129 mg/dL: Near or above optimal 130-159 mg/dL: Borderline high 160-189 mg/dL: High >190 mg/dL: Very High CARDIAC RISK RATIO 2.6(L) 3.3 - 4.4 C [facility] Blood 03/15/2024 7:49 AM EDT 03/15/2024 7:51 AM EDT Aries Giles MD LAB BLOOD BKR ORDERABLES Basilia l Result [address] [address] * DIABETES EYE EXAM FOR RESULT ENTRY ONLY (01/11/2024 3:16 PM EDT) [facility] Final Result * (ABNORMAL) Hemoglobin A1c (12/28/2023 8:19 AM EDT) [facility] HEMOGLOBIN A1C 6.1(H) 4.3 - 5.8 % [facility] Blood 12/28/2023 8:19 AM EDT 12/28/2023 8:23 AM EDT Aries Giles MD LAB BLOOD BKR ORDERABLES Basilia l Result Performing Organization Address City/[facility]/ZIP Co de Phone Number [address] [address] from Last 3 Months or Most Recently Relevant to Health Maintenance Insurance MEDICARE PART A & B [employer] MEDEX SUPPLEMENT MEDICARE PART A & B [employer] MEDEX SUPPLEMENT MEDICARE PART A & B [employer] MEDEX SUPPLEMENT MEDICARE PART A & B BLUE [employer]OSS MEDEX SUPPLEMENT MEDICARE PART A & B [employer] MEDEX SUPPLEMENT MEDICARE PART A & B [employer] CROSS MEDEX SUPPLEMENT MEDICARE PART A & B [employer] MEDEX SUPPLEMENT MEDICARE PART A & B [employer]les CROSS MEDEX SUPPLEMENT MEDICARE PART A & B [employer]les CROSS MEDEX SUPPLEMENT Member Subscriber Plan / Payer ( fective 2002-Present) Name:Jer Montero Relation to Subscriber:Self Name:KYLAHJER Payer ID:[id number] (NAIC) Type:IndemniEdkimo Address: [place] [id number] Care Teams Psychologist Private Practice Relationship Specialty Start Date End Date Pcp, Unknown PCP - General 01/04/25 Aries Giles MD [address] [place] [phone] [email or web address] Insurance Assigned Provider 12/26/23 Additional Source Comments The information contained in this document represents components of the legal health record. It is not the complete legal health record.[facility]
--- OUTSIDE RECORDS SUMMARY | 2025-08-10 21:03 | XMS_ITS | Encounter Summary ---
Author Organization [facility] Address [address] [place] [address] Phone Care Team Providers Care Obiee Report Developer Name Role Phone Aries Giles MD Unavailable Pcp, Unknown Primary Care Provider Unavailabl e Reason for Visit * Reason Comments Medication Refill Encounter Details Date Type Department Care Team (Late st Contact Info) Description 08/09/2025 Refill [facility] Internal Medicine [address] [place] [address] Aries Giles MD [address] [place] [address] [email or web address] Medication [...] on file documented as of this encounter Plan of Treatment Not on file documented as of this encounter Visit Diagnoses Diagnosis Essential hypertension Unspecified essential hypertension documented in this encounter Additional Health Concerns Assessment Noted Time PHQ-2 Depression Total Score: 0 07/10/20 23 9:31 AM EDT documented as of this encounter Care Teams Obiee Report Developer Relationship Specialty Start Date End Date Pcp, Unknown PCP - General 01/04/25 Aries Giles MD [address] [place] [phone] [email or web address] Insurance Assigned Provider 12/26/23 documented as of this encounter Additional Source Comments The information contained in this document represents components of the legal health record. It is not the complete legal health record.[facility]
[2025-08-10 21:55] LABS: Resp Syncy Virus RNA Qual PCR NEGATIVE (Negative); SARS COV2 PCR INHOUSE NEGATIVE (Negative)
== END 2025-08-11 00:01 | disposition home or self-care (01) ==
PROVIDERS: Physician Assistant; Emergency Provider Emergency Medicine
DX: G44.209 Tension-type headache, unspecified, not intractable (principal); I10 Essential (primary) hypertension; Z03.818 Encounter for observation for suspected exposure to other biological agents ruled out; Z86.73 Personal history of transient ischemic attack (TIA), and cerebral infarction without residual deficits; Z79.01 Long term (current) use of anticoagulants
CPT/HCPCS: 36415; 70450; 72125; 80053; 84484; 85025; 85610; 85730; 87637; 93005; 99284; 99285

== ENCOUNTER → 2025-08-10 16:45 | Outpatient (BNV) | payer MEDICARE, SELFPAY | PROVIDERS: Visit Provider Radiology Diagnostic Radiology | DX: M54.2 Cervicalgia (principal); J34.89 Other specified disorders of nose and nasal sinuses | CPT/HCPCS: 70450; 72125 ==

== ENCOUNTER → 2025-08-10 16:45 | Outpatient (BNV) | payer MEDICARE, SELFPAY | PROVIDERS: Emergency Provider Emergency Medicine; Visit Provider Internal Medicine | DX: I44.0 Atrioventricular block, first degree (principal) | CPT/HCPCS: 93010 ==

== ENCOUNTER 2025-08-11 09:32 | Outpatient (AMB) | payer MEDICARE, SELFPAY ==
--- OUTSIDE RECORDS SUMMARY | 2025-08-11 10:03 | XMS_ITS | Clinical Summary ---
Author Organization [facility] Address [address] [place] [address] Drive [address] [place] [address] Phone Care Team Providers Care Neurology Epilepsy Physician Name Role Phone Aries Giles MD Unavailable [phone] Pcp, Unknown Primary Care Provider Unavailabl e [...] Skin lesions 05/07/2024 Overview (05/07/2024): Seen at [place] [facility] 05/06/24, by Dr. Guille Blanco- f/u [...] Type Department Care Team Description 08/09/2025 Refill [facility] Internal Medicine [address] [place] [address] Aries Giles MD Medication Refill 07/17[facility] [address] [place] [address] Aries Giles MD Medication Refill from Last [...] EDT) SODIUM 141 133 - 146 mmol/L [facility] POTASSIUM 4.3 3.3 - 5.1 mmol/L [facility] CHLORIDE 104 96 - 108 mmol/L [facility] CO2 28 21 - 35 mmol/L [facility] BUN 15 6 - 19 mg/dL [facility] CREATININE 0.60 0.5 - 1.5 mg/dL [facility] GLUCOSE 115(H) 70 - 99 mg/dL [facility] ALBUMIN 4.3 3.9 - 4.8 g/dL [facility] TOTAL PROTEIN 7.1 6.5 - 8.0 g/dL [facility] CALCIUM 9.6 8.4 - 10.3 mg/dL [facility] ALKALINE PHOSPHATASE 77 39 - 117 U/L [facility] TOTAL BILIRUBIN 1.1 0.0 - 1.2 mg/dL [facility] AST 26 0 - 37 U/L [facility] ALT 13 0 - 40 U/L [facility] GLOBULIN 2.8 1 - 4.8 g/dL [facility] EGFR 87 >59 mL/min/1.7 3m2 [facility] Comment:Estimated glomerular filtration rate calculated using the CKD-EPI refit equation. ANION GAP 13 10 - 20 mmol/L [facility] Blood 03/15/2024 7:49 AM EDT 03/15/2024 7:51 AM EDT us Aries Giles MD LAB BLOOD BKR ORDERABLES Basilia owusu Result [facility] [address] [place] [address] * (ABNORMAL) Lipid panel (03/15/2024 7:49 AM EDT) HDL 57 mg/dL [facility] Comment: Interpretation <40 mg/dL: Low HDL cholesterol (major risk factor for CHD) Greater than or equal to 60 mg/dL: High HDL cholesterol ( negative risk factor for CHD) HDL - cholesterol is affected by a number of factors, e.g. smoking, excerise, hormones, sex and age. CHOLESTEROL 148 0 - 240 mg/dL [facility] TRIGLYCERIDES 125 30 - 160 mg/dL [facility] LDL 66 50 - 129 mg/dL [facility] Comment: LDL levels in terms of risk for coronary heart disease: <100 mg/dL: Optimal 100-129 mg/dL: Near or above optimal 130-159 mg/dL: Borderline high 160-189 mg/dL: High >190 mg/dL: Very High CARDIAC RISK RATIO 2.6(L) 3.3 - 4.4 C [facility] Blood 03/15/2024 7:49 AM EDT 03/15/2024 7:51 AM EDT Aries Giles MD LAB BLOOD BKR ORDERABLES Basilia l Result [address] [address] * DIABETES EYE EXAM FOR RESULT ENTRY ONLY (01/11/2024 3:16 PM EDT) [facility] Final Result * (ABNORMAL) Hemoglobin A1c (12/28/2023 8:19 AM EDT) [facility] HEMOGLOBIN A1C 6.1(H) 4.3 - 5.8 % [facility] Blood 12/28/2023 8:19 AM EDT 12/28/2023 8:23 AM EDT Aries Giles MD LAB BLOOD BKR ORDERABLES Basilia l Result Performing Organization Address City/[facility]/ZIP Co de Phone Number [address] [address] from Last 3 Months or Most Recently Relevant to Health Maintenance Insurance MEDICARE PART A & B [employer] SUPPLEMENT MEDICARE PART A & B [employer] SUPPLEMENT MEDICARE PART A & B [employer] MED[employer] SUPPLEMENT MEDICARE PART A & B [employer] MEDEX SUPPLEMENT MEDICARE PART A & B [place] MEDEX SUPPLEMENT MEDICARE PART A & B [employer] MEDEX SUPPLEMENT MEDICARE PART A & B [employer] MEDEX SUPPLEMENT MEDICARE PART A & B [employer] CROSS MEDEX SUPPLEMENT MEDICARE PART A & B [employer] CROSS MEDEX SUPPLEMENT Member Subscriber Plan / Payer ( fective 2002-Present) Name:Jer Montero Relation to Subscriber:Self Name:KYLAHJER Payer ID:[id number] (NAIC) Type:[employer] Address: [place] [id number] Care Teams Neurology Epilepsy Physician Relationship Specialty Start Date End Date Pcp, Unknown PCP - General 01/04/25 Aries Giles MD [address] [place] [phone] [email or web address] Insurance Assigned Provider 12/26/23 Additional Source Comments The information contained in this document represents components of the legal health record. It is not the complete legal health record.[facility]
--- OUTSIDE RECORDS SUMMARY | 2025-08-11 10:03 | XMS_ITS | Encounter Summary ---
Author Organization [facility] Address [address] [place] [address] Phone Care Team Providers Care Inbound Telemarketer Name Role Phone Aries Giles MD Unavailable [phone] Pcp, Unknown Primary Care Provider Unavailabl e Reason for Visit * Reason Comments Medication Refill Encounter Details Date Type Department Care Team (Late st Contact Info) Description 08/09/2025 Refill [facility] Internal Medicine [address] [place] [address] Aries Giles MD [address] [place] [address] [email or web address] Medication Refill Social History [...] documented as of this encounter Care Teams Inbound Telemarketer Relationship Specialty Start Date End Date Pcp, Unknown PCP - General 01/04/25 Aries Giles MD [address] [place] [address] [email or web address] Insurance Assigned Provider 12/26/23 documented as of this encounter Additional Source Comments The information contained in this document represents components of the legal health record. It is not the complete legal health record.[facility]
--- OUTSIDE RECORDS SUMMARY | 2025-08-11 10:03 | XMS_ITS | Encounter Summary ---
Author Organization [facility] Address [address] [place] [address] Phone Care Team Providers Care Field Support Engineer Name Role Phone Arise Giles MD Unavailable [phone] Pcp, Unknown Primary Care Provider Unavailabl e Reason for Visit * Reason Comments Medication Refill Encounter Details Date Type Department Care Team (Late st Contact Info) Description 07/17/2025 Refill [facility] Medical [facility] Internal Medicine [address] [place] [address] Aries Giles MD [address] [place] [address] [email or web address] Medication Refill Social History Tobacco Use Types [...] documented as of this encounter Care Teams Field Support Engineer Relationship Specialty Start Date End Date Pcp, Unknown PCP - General 01/04/25 Aries Giles MD [address] [place] [id number] [email or web address] Insurance Assigned Provider 12/26/23 documented as of this encounter Additional Source Comments The information contained in this document represents components of the legal health record. It is not the complete legal health record.[facility]
--- NOTE | 2025-08-11 10:32 | MHC.OFFVISCO ---
Intake Intake Visit Reasons: Anticoagulation Allergies rosuvastatin Adverse Reaction (Intermediate, Verified 08/11/25 09:49) Weakness meloxicam Allergy (Intermediate, Uncoded 07/14/25 09:14) Nausea Medication List - Last Reconciled 08/11/25 by Macarena Faust, RN ascorbic acid (vitamin C) mg PO DAILY aspirin 81 mg PO DAILY atenolol 12.5 mg PO DAILY cholecalciferol (vitamin D3) PO DAILY docusate sodium (Colace Clear) PO PRN fluticasone propionate 50 mcg/actuation 1 spray intranasal DAILY PRN losartan 25 mg PO DAILY [omega 3 pt states 1 cap daily 500mg ] [id number]-tpmufnloiyxrs-GK 5-325-200 mg (Mucinex Sinus-Max Severe Congestion Relief) 2 tabs PO Q4-6H PRN [REDS AND GREENS SUPPLEMENT 1 cap daily of each supplement ] warfarin 2.5 mg See Protocol PO DAILY Nursing Note PT.CALLS TO INFORM THAT SHE WAS IN [facility] ED YESTERDAY WITH ELEVATED BP. SBP WAS > 200 WITH PT.STATING THAT SHE HAD SOME PRESSURE ON SIDE OF HER HEAD. SHE WAS SUBSEQ.DISCHARGED WITHOUT ANY MED INTERVENTION BP RETURNED TO NORMAL. PT.STATES THAT SHE FEELS FINE TODAY, AND BP IS STABLE. INR IN THE ER WAS 2.2. WILL CONTINUE USUAL WARFARIN DOSE AND FOLLOW-UP HERE ON 08/15/25. ]\GOOD UNDERSTANDING OF DOSING INSTR.VERB AND PT.AGREES TO CALL [facility] IF ANY FURTHER CONCERNS ARISE. 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
== END 2025-08-11 10:39 | disposition home or self-care (01) ==
LOC: HO.ACS 09:32
PROVIDERS: Visit Provider Internal Medicine Medical Oncology
DX: Z79.01 Long term (current) use of anticoagulants (principal)

== ENCOUNTER → 2025-08-11 09:32 | Outpatient (BNVA) | payer MEDICARE, SELFPAY | PROVIDERS: Visit Provider Internal Medicine Medical Oncology | DX: I63.9 Cerebral infarction, unspecified (principal); Z51.81 Encounter for therapeutic drug level monitoring; Z79.01 Long term (current) use of anticoagulants | CPT/HCPCS: 99211 ==

== ENCOUNTER 2025-08-15 09:47 | Outpatient (AMB) | payer MEDICARE, SELFPAY ==
[2025-08-15 09:55] VITALS: PULSE 60; TEMP 36.2; O2SAT 99; BMI 31.1
--- NOTE | 2025-08-15 09:55 | MHC.PC.OV ---
Vital Signs 08/15/25 09:55 Height 5 ft 2.99 in Weight 175 lb 4 oz BMI 31.1 Blood Pressure Location Lt brachial Position Sitting Pulse 60 Pulse Source Pulse Oximeter Temp 97.1 F Temp Source Temporal Artery Scan Pulse Oximetry (%) 99 Oxygen Delivery Method Room Air Intake Visit Reasons: f/u [employer] Safety Consultant Required: No Accompanied by: Son Allergies rosuvastatin Adverse Reaction (Intermediate, Verified 08/15/25 09:57) Weakness meloxicam Allergy (Intermediate, Uncoded 07/14/25 09:14) Nausea Medication List - Last Reconciled 08/15/25 by Mary Booth PA-C ascorbic acid (vitamin C) mg PO DAILY aspirin 81 mg PO DAILY atenolol 12.5 mg PO DAILY cholecalciferol (vitamin D3) PO DAILY docusate sodium (Colace Clear) PO PRN fluticasone propionate 50 mcg/actuation 1 spray intranasal DAILY PRN losartan 25 mg PO DAILY [omega 3 pt states 1 cap daily 500mg ] vxnehddbnfrve-tfmvorhqcmeyn-UU 5-325-200 mg (Mucinex Sinus-Max Severe Congestion Relief) 2 tabs PO Q4-6H PRN [REDS AND GREENS SUPPLEMENT 1 cap daily of each supplement ] warfarin 2.5 mg See Protocol PO DAILY Tobacco use date assessed: 02/09/25 Fall risk assessment: No Falls in past year Last assessed Fall Risk: 02/09/25 Dental Screening Dental Screen Date: 12/08/24 Did you have a dental visit in the last 12 months?: Yes Did you have a dental problem in the last 6 months where you did not have access to dental care?: No Was dental information given to patient?: Patient has dentist HPI f/u HLD HPI Details 89 year old female with past medical history of CVA, sleep apnea, hypertension, hyperlipidemia, GERD, impaired glucose tolerance and carotid stenosis last seen 01/2025 coming in for follow up. In review of the notes, patient was seen in [facility] ED 07/2025 for headache and HTN workup was reassuring and headache improved with tylenol. Seen by neurology 07/2025 recommended to continue on current meds and stay mentally busy. Presenting for follow up on labile hypertension and management of chronic conditions. Home blood pressure monitoring has shown significant variability, with readings as high as 190/100 mmHg, improved once taken, and as low as 115 mmHg. The patient takes losartan and atenolol once daily in the morning. The patient experienced a headache at the time of the high blood pressure reading, and it was unclear if the pain caused the hypertension or vice versa. For the past two to three weeks, the patient has been sneezing frequently, which is managed effectively with Zyrtec. The patient has a history of obstructive sleep apnea and has been on CPAP for over 10 years, but recently stopped using it for two weeks due to nasal congestion and sneezing. [facility] Medical History Subarachnoid hemorrhage Sleep apnea HLD (hyperlipidemia) HTN (hypertension) Cataract TIA (transient ischemic attack) Surgical History History of cataract surgery Hx of appendectomy Social History Housing: House Alcohol intake: never Patient Tobacco Use Status: Never used Tobacco e-Cigarette/Vaping Use: Never Used Second Hand Smoke Exposure: No Advance Directives Date on File: 08/10/25 service: No Current occupational status: retired Cognitive needs: Yes (walker) Hearing needs: No Vision needs: Yes (Glasses) Questionnaire PHQ-9 Over the last 2 weeks, how often have you been bothered by any of the following problems? 1. Little interest or pleasure in doing things: not at all 2. Feeling down, depressed, or hopeless: not at all 3. Trouble falling or staying asleep, or sleeping too much: several days 4. Feeling tired or having little energy: several days 5. Poor appetite or overeating: not at all 6. Feeling bad about yourself - or that you are a failure or have let yourself or your family down: not at all 7. Trouble concentrating on things, such as reading the newspaper or watching television: several days 8. Moving or speaking so slowly that other people could have noticed. Or the opposite - being so fidgety or restless that you have been moving around a lot more than usual: not at all 9. Thoughts that you would be better off or of hurting yourself in some way: not at all Total score: 3 Source: Developed by Drs. Avila Merlos, Fallon Sales, Quinton Muñoz and colleagues, with an educational jose luis from [employer]. Thrive Questionnaire Date Thrive assessed: 02/08/25 I am a: Patient What is your living situation today?: I have a steady place to live Within the past 12 months, did the food you bought not last and you didn't have the money to get more?: Never true Within the past 12 months, did you worry whether your food would run out before you got money to buy more?: Never true Do you have trouble paying for medicines?: No Do you have trouble getting transportation to medical appointments?: No Do you have trouble paying your heating and electricity bill?: No Do you have trouble taking care of your child, family member or friend?: I choose not to answer this question Do you have trouble with day-to-day activities such as bathing, preparing meals, shopping, managing finances, etc.?: I choose not to answer this question Are you currently unemployed and looking for a job?: No Are you interested in more education?: No Please select the resources that you would like help with: None Currently or been in a relationship where the following occur: I choose not to answer THRIVE Score: 0 AUDIT C Alcohol Use Questionnaire (AUDIT-C) 1. How often do you have a drink containing alcohol?: Never 3. How often do you have six or more drinks on one occasion?: Never Total Score: 0 MALATHI-7 AMB Questionnaire MALATHI-7 Date MALATHI - 7 assessed: 02/09/25 Feeling nervous, anxious, or on edge: 2 = More than half the days Not being able to stop or control worryin = More than half the days Worrying too much about different things: 2 = More than half the days Trouble relaxin = More than half the days Being so restless that it is hard to sit still: 1 = Several days Becoming easily annoyed or irritable: 1 = Several days Feeling afraid as if something awful might happen: 0 = Not at all Total MALATHI-7 score (0-4 normal; 5-9 mild; 10-14 moderate; 15-21 severe): 10 Source: Developed by Fallon Salguero, Quinton Muñoz and colleagues, with an educational jose luis from [employer]. Review of Systems Const Denies body aches, Denies chills, Denies fever(s), Denies headache(s) and Denies poor appetite Eyes Reports no additional complaints ENT Denies dizziness and Denies headache(s) Card Denies chest pain, Denies syncope, Denies lightheadedness and Denies dyspnea Resp Denies cough and Denies dyspnea Skin/Breast Reports system reviewed and no additional complaints, except as documented Neuro Denies dizziness, Denies syncope and Denies headache(s) Psych Reports no additional complaints Physical exam (Primary Care) Vital Signs: Last Vital Signs Temp 97.1 F 08/15/25 09:55 Pulse 60 08/15/25 09:55 Pulse Ox 99 08/15/25 09:55 Oxygen Delivery Method Room Air 08/15/25 09:55 BMI result Body Mass Index 31.1 Tobacco/Smoking Status: Tobacco use Status Tobacco use date assessed 02/09/25 08/15/25 09:58 Patient Tobacco Use Status Never used Tobacco 08/15/25 09:58 e-Cigarette/Vaping Use Never Used 08/15/25 09:58 PHQ-9: PHQ-9 Score PHQ-9: Total score 3 08/15/25 10:07 Thrive Assessment: Date of Thrive Assessment Date Thrive assessed 02/08/25 08/15/25 09:58 Currently or been in a relationship where the following occur: I choose not to answer Const General: cooperative, healthy appearing, comfortable and no acute distress Orientation/consciousness: patient oriented x3 HENMT Head: Yes normocephalic Ears: hearing grossly normal bilaterally General nose exam: Normal external nose present Eyes General: appearance normal, both eyes and all related structures Conjunctivae: conjunctivae normal Neck Neck: Yes full ROM and Yes no lymphadenopathy Resp Effort & Inspection: normal respiratory effort Auscultation: clear to auscultation bilaterally, no crackles, no rales, no rhonchi and no wheezes Cardio Rate: regular rate Rhythm: regular rhythm Skin General skin exam: no rashes or lesions noted Neuro General: patient oriented x3 Gait exam (Neuro): Normal gait present Extrem General: Yes normal to inspection, Yes full ROM and No edema Psych Affect: normal affect Attitude: cooperative Insight: Good insight present (Psych) Judgement: Good judgement present (Psych) Coding Level of Care Code Est Pt Level 3 (85240) Diagnoses CVA (cerebral vascular accident) I63.9 HTN (hypertension) I10 Hypertension type: unspecified HLD (hyperlipidemia) E78.5 Carotid stenosis I65.29 MCI (mild cognitive impairment) with memory loss G31.84 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 08/29/19 Carotid US LICA 50-79% stenosis.09/03/20 Carotid US LICA 50-79% stenosis.08/18/22 US shows 50-79% LICA stenosis unchanged. 06/01/25 Carotid US: 0-49% stenosis of the right internal carotid artery, and 50-79% stenosis of the left internal carotid artery. (unchanged) Code(s): I63.9 - Cerebral infarction, unspecified Category: Medical Plan: Patient recently seen by Neurology advised to continue on the warfarin indefinitely. Advised good control of blood pressure, cholesterol and blood sugars. (2) HTN (hypertension): Code(s): I10 - Essential (primary) hypertension Category: Medical Qualifiers: Hypertension type: unspecified Qualified Code(s): I10 - Essential (primary) hypertension Plan: Continue on current blood pressure medication. Avoid salt intake and encourage healthy diet and regular exercise. Blood pressure medications will not be increased at this time due to episodes of low blood pressure readings at home. The patient was advised that nonadherence to CPAP therapy may be contributing to erratic blood pressure readings. The patient will monitor blood pressure daily at home for one week, checking at least two hours after taking morning medications, with a goal of less than 140/90 mmHg. A phone follow-up is planned in one week to review the blood pressure log. (3) HLD (hyperlipidemia): Code(s): E78.5 - Hyperlipidemia, unspecified Category: Medical Plan: Avoid foods that are high in cholesterol such as red meat, fried foods, eggs and baked goods. Triglyceride goal of less than 150 and LDL goal of less than 70. She had no longer taking cholesterol medication continue to monitor blood work (4) Carotid stenosis: Code(s): I65.29 - Occlusion and stenosis of unspecified carotid artery Category: Medical Plan: We encouraged ongoing monitoring of the patient's carotid artery status given her history of stroke and carotid stenosis. Recommended following up with her neurologist as they were previously managing this condition. (5) MCI (mild cognitive impairment) with memory loss: Code(s): G31.84 - Mild cognitive impairment of uncertain or unknown etiology Category: Medical Plan: Per neurology recommend staying mentally and physically active. Plan This note was constructed using voice recognition software. While every effort has been made to ensure accuracy and bellhop service captain, still areas may have been included sometimes these areas may affect the content or meeting of the given symptoms. Total time spent caring for the patient today was 20 minutes. This includes time spent before the visit reviewing the chart, time spent during the visit, and time spent after the visit and documentation.
--- OUTSIDE RECORDS SUMMARY | 2025-08-15 11:29 | XMS_ITS | Encounter Summary ---
Author Organization [facility] Address [address] [place] [address] Phone Care Team Providers Care Stock Grader Name Role Phone Aries Giles MD Unavailable [phone] Pcp, Unknown Primary Care Provider Unavailabl e Reason for Visit * Reason Comments Medication Refill Encounter Details Date Type Department Care Team (Late st Contact Info) Description 08/09/2025 Refill [facility] Medical [facility] Internal Medicine [address] [place] [address] Aries Giles MD [address] [place] [address] [email or web address] Medication Refill Social History Tobacco Use Types [...] documented as of this encounter Care Teams Stock Grader Relationship Specialty Start Date End Date Pcp, Unknown PCP - General 01/04/25 Aries Giles MD [address] [place] [phone] [email or web address] Insurance Assigned Provider 12/26/23 documented as of this encounter Additional Source Comments The information contained in this document represents components of the legal health record. It is not the complete legal health record.[facility]
--- OUTSIDE RECORDS SUMMARY | 2025-08-15 11:29 | XMS_ITS | Encounter Summary ---
Author Organization [facility] Address [address] [place] [address] Phone Care Team Providers Care Milk Bottler Name Role Phone Aries Giles MD Unavailable [phone] Pcp, Unknown Primary Care Provider Unavailabl e Reason for Visit * Reason Comments Medication Refill Encounter Details Date Type Department Care Team (Late st Contact Info) Description 07/17/2025 Refill [facility] Medical [facility] Internal Medicine [address] [place] [address] Aries Giles MD [address] [place] [address] [email or web address] Medication Refill Social History Tobacco [...] documented as of this encounter Care Teams Milk Bottler Relationship Specialty Start Date End Date Pcp, Unknown PCP - General 01/04/25 Aries Giles MD [address] [place] [phone] [email or web address] Insurance Assigned Provider 12/26/23 documented as of this encounter Additional Source Comments The information contained in this document represents components of the legal health record. It is not the complete legal health record.[facility]
--- OUTSIDE RECORDS SUMMARY | 2025-08-15 11:29 | XMS_ITS | Clinical Summary ---
Author Organization [facility] Address [address] [place] [address] Drive [address] [place] [address] Phone Care Team Providers Care Retail Advisor Name Role Phone Aries Giles MD Unavailable [phone] Pcp, Unknown Primary Care Provider Unavailabl e [...] Skin lesions 05/07/2024 Overview (05/07/2024): Seen at [place] [facility] 05/06/24, by Dr. Guille Blanco- f/u [...] Type Department Care Team Description 08/09/2025 Refill [facility] Internal Medicine [address] [place] [address] Aries Giles MD Medication Refill 07/17/2025 [facility] [address] [place] [address] Aries Giles MD Medication Refill from Last [...] EDT) SODIUM 141 133 - 146 mmol/L [facility] POTASSIUM 4.3 3.3 - 5.1 mmol/L [facility] CHLORIDE 104 96 - 108 mmol/L [facility] CO2 28 21 - 35 mmol/L [facility] BUN 15 6 - 19 mg/dL [facility] CREATININE 0.60 0.5 - 1.5 mg/dL [facility] GLUCOSE 115(H) 70 - 99 mg/dL [facility] ALBUMIN 4.3 3.9 - 4.8 g/dL [facility] TOTAL PROTEIN 7.1 6.5 - 8.0 g/dL [facility] CALCIUM 9.6 8.4 - 10.3 mg/dL [facility] ALKALINE PHOSPHATASE 77 39 - 117 U/L [facility] TOTAL BILIRUBIN 1.1 0.0 - 1.2 mg/dL [facility] AST 26 0 - 37 U/L [facility] ALT 13 0 - 40 U/L [facility] GLOBULIN 2.8 1 - 4.8 g/dL [facility] EGFR 87 >59 mL/min/1.7 3m2 [facility] Comment:Estimated glomerular filtration rate calculated using the CKD-EPI refit equation. ANION GAP 13 10 - 20 mmol/L [facility] Blood 03/15/2024 7:49 AM EDT 03/15/2024 7:51 AM EDT us Aries Giles MD LAB BLOOD BKR ORDERABLES Basilia owusu Result [facility] [address] [place] [address] * (ABNORMAL) Lipid panel (03/15/2024 7:49 AM EDT) HDL 57 mg/dL [facility] Comment: Interpretation <40 mg/dL: Low HDL cholesterol (major risk factor for CHD) Greater than or equal to 60 mg/dL: High HDL cholesterol ( negative risk factor for CHD) HDL - cholesterol is affected by a number of factors, e.g. smoking, excerise, hormones, sex and age. CHOLESTEROL 148 0 - 240 mg/dL [facility] TRIGLYCERIDES 125 30 - 160 mg/dL [facility] LDL 66 50 - 129 mg/dL [facility] Comment: LDL levels in terms of risk for coronary heart disease: <100 mg/dL: Optimal 100-129 mg/dL: Near or above optimal 130-159 mg/dL: Borderline high 160-189 mg/dL: High >190 mg/dL: Very High CARDIAC RISK RATIO 2.6(L) 3.3 - 4.4 C [facility] Blood 03/15/2024 7:49 AM EDT 03/15/2024 7:51 AM EDT Aries Giles MD LAB BLOOD BKR ORDERABLES Basilia l Result [address] [address] * DIABETES EYE EXAM FOR RESULT ENTRY ONLY (01/11/2024 3:16 PM EDT) [facility] Final Result * (ABNORMAL) Hemoglobin A1c (12/28/2023 8:19 AM EDT) [facility] HEMOGLOBIN A1C 6.1(H) 4.3 - 5.8 % [facility] Blood 12/28/2023 8:19 AM EDT 12/28/2023 8:23 AM EDT Aries Giles MD LAB BLOOD BKR ORDERABLES Basilia l Result Performing Organization Address City/[facility]/ZIP Co de Phone Number [address] [address] from Last 3 Months or Most Recently Relevant to Health Maintenance Insurance MEDICARE PART A & B M87 MEDEX SUPPLEMENT MEDICARE PART A & B M87 MEDEX SUPPLEMENT MEDICARE PART A & B M87 MEDEX SUPPLEMENT MEDICARE PART A & B [employer] MEDEX SUPPLEMENT MEDICARE PART A & B M87 MEDEX SUPPLEMENT MEDICARE PART A & B [employer] CROSS MEDEX SUPPLEMENT MEDICARE PART A & B M87 MEDEX SUPPLEMENT MEDICARE PART A & B [employer] CROSS MEDEX SUPPLEMENT MEDICARE PART A & B [employer] CROSS MEDEX SUPPLEMENT Member Subscriber Plan / Payer ( fective 2002-Present) Name:Jer Montero Relation to Subscriber:Self Name:KYLAHJER Payer ID:[id number] (NAIC) Type:[employer] Address: [place] [phone] Care Teams Retail Advisor Relationship Specialty Start Date End Date Pcp, Unknown PCP - General 01/04/25 Aries Giles MD [address] [place] [id number] [email or web address] Insurance Assigned Provider 12/26/23 Additional Source Comments The information contained in this document represents components of the legal health record. It is not the complete legal health record.[facility]
== END 2025-08-15 10:53 | disposition home or self-care (01) ==
LOC: HO.HMCH 09:47
DX: I63.9 Cerebral infarction, unspecified (principal); I10 Essential (primary) hypertension; E78.5 Hyperlipidemia, unspecified; I65.29 Occlusion and stenosis of unspecified carotid artery; G31.84 Mild cognitive impairment of uncertain or unknown etiology

== ENCOUNTER → 2025-08-15 09:47 | Outpatient (BNVA) | payer MEDICARE, SELFPAY | DX: I10 Essential (primary) hypertension (principal); E78.5 Hyperlipidemia, unspecified; G31.84 Mild cognitive impairment of uncertain or unknown etiology | CPT/HCPCS: 99212 ==

== ENCOUNTER 2025-09-07 09:22 | Outpatient (AMB) | payer MEDICARE, SELFPAY ==
[2025-09-07 09:33] LABS: Prothrombin Time Whole Bld POC 36.5 sec (11.1-13.5); ~PT, ~INR - Anti Coag Clinic 3.0 (0.9-1.1)
--- NOTE | 2025-09-07 09:47 | MHC.OFFVISCO ---
Intake Intake Visit Reasons: Anticoagulation Allergies rosuvastatin Adverse Reaction (Intermediate, Verified 09/07/25 09:27) Weakness meloxicam Allergy (Intermediate, Uncoded 07/14/25 09:14) Nausea Medication List - Last Reconciled 09/07/25 by Macarena Faust, RN ascorbic acid (vitamin C) mg PO DAILY aspirin 81 mg PO DAILY atenolol 12.5 mg PO DAILY cholecalciferol (vitamin D3) PO DAILY docusate sodium (Colace Clear) PO PRN fluticasone propionate 50 mcg/actuation 1 spray intranasal DAILY PRN losartan 25 mg PO DAILY [omega 3 pt states 1 cap daily 500mg ] oxevztjrbiusx-jfbdlgjwfnfdt-SV 5-325-200 mg (Mucinex Sinus-Max Severe Congestion Relief) 2 tabs PO Q4-6H PRN [REDS [employer] GREENS SUPPLEMENT 1 cap daily of each supplement ] warfarin 2.5 mg PO DAILY Nursing Note NO CP,SOB,DIET/MED CHANGES,FALLS OR SX OF BLEEDING. CONTINUE PRESENT DOSE AND FOLLOW-UP IN 4 WEEKS GOOD UNDERSTANDING OF DOSING INSTR. Anti-Coag Initial Assessment Social Hx Patient Tobacco Use Status: Never used Tobacco alcohol intake: never Alcohol intake frequency: does not drink Coding Level of Care Code Est Patient Level 1 Diagnoses Current use of anticoagulant therapy Z79.01 Assessment & Plan Assessment & Plan (1) Current use of anticoagulant therapy: Code(s): Z79.01 - jail (current) use of anticoagulants Category: Medical
== END 2025-09-07 09:49 | disposition home or self-care (01) ==
LOC: HO.ACS 09:22
PROVIDERS: Visit Provider Internal Medicine Medical Oncology
DX: Z79.01 Long term (current) use of anticoagulants (principal)

== ENCOUNTER → 2025-09-07 09:22 | Outpatient (BNVA) | payer MEDICARE, SELFPAY | PROVIDERS: Visit Provider Internal Medicine Medical Oncology | DX: Z79.01 Long term (current) use of anticoagulants (principal); Z51.81 Encounter for therapeutic drug level monitoring | CPT/HCPCS: 85610; 99211 ==